=== PATIENT | female | born 1940 | race Caucasian/White ===

== ENCOUNTER → 2018-08-04 11:54 | Outpatient (CLI) | payer OTHER, SELFPAY ==
--- NOTE | 2018-08-04 | DI.RAD.S_ITS ---
PROCEDURE: XR LUMBAR SPINE 2-3V INDICATIONS: Lumbago with sciatica, unspecified side TECHNIQUE: 3 views of the lumbar spine were acquired. COMPARISON: [facility], [place], SPINE LUMB 2 OR 3VW, 11/27/2015, 14:35. [facility], [place], L-SPINE 2-3 VIEWS, 11/23/2012, 14:50. FINDINGS: Bones: No fracture or focal osseous destruction. Multilevel degenerative endplate sclerosis and spurring. Diffuse facet arthropathy. Severe levoscoliosis of the lower thoracic and upper lumbar spine as before. Severe diffuse narrowing of all of the visualized lumbar and thoracic disc spaces. Overall, no interval change. Soft tissues: Scattered vascular calcifications seen in the aorta. IMPRESSION: No interval change since 11/27/15 redemonstrating severe scoliosis and multilevel thoracic/lumbar spondylosis and facet arthropathy. Dictated by: Fahad Bello M.D. on 08/04/2018 at 13:18 Approved by: Fahad Bello M.D. on 08/04/2018 at 13:20
== END ==
PROVIDERS: PCP Internal Medicine; Visit Provider Internal Medicine
DX: M47.815 Spondylosis without myelopathy or radiculopathy, thoracolumbar region (principal); M54.40 Lumbago with sciatica, unspecified side; M41.85 Other forms of scoliosis, thoracolumbar region
CPT/HCPCS: 72100

== ENCOUNTER 2018-08-17 19:45 | Emergency (ER) | payer OTHER, SELFPAY ==
[2018-08-17 19:54] VITALS: BP 152/85; PULSE 71; RESP 14; TEMP 36.7; O2SAT 99
--- NOTE | 2018-08-17 22:16 | ED.SKABFB ---
HPI - Skin/Abscess/Foreign Bdy General Chief complaint: Skin/Abscess/Foreign Body Stated complaint: skin tear right arm, dog jumped on her arm Time Seen by Provider: 08/17/18 22:16 Source: patient Mode of arrival: ambulatory Limitations: no limitations History of Present Illness HPI narrative: The patient has a 2-year-old very active dog at home. The dog jumped on her, she has sustained a skin tear to the right forearm. She has rheumatoid arthritis, and associated thin skin. There is a skin tear, with roll back of the skin. She has no active bleeding. There is no motor sensory deficits the right arm. She has no numbness in the right arm. She thinks her tetanus is up-to-date. She is right-hand dominant. Related Data Home Medications Medication Instructions Recorded Confirmed felodipine 10 mg PO QDAY #0 08/03/09 folic acid 1 mg PO BID #0 08/03/09 ascorbic acid (vitamin C) 1,000 mg PO QDAY #0 03/12/16 calcium carbonate 2,000 mg PO QDAY #0 03/12/16 cholecalciferol (vitamin D3) 1 tab PO QDAY #0 03/12/16 [Vitamin D3] magnesium oxide 400 mg PO QDAY #0 03/12/16 omega 4-kie-kft-fish oil [Fish Oil] 1,000 mg PO QDAY #0 03/12/16 ibuprofen [Advil] 200 mg PO Q4HP PRN #0 09/17/16 prednisone 5 mg PO QDAY #0 09/17/16 tramadol 50 mg PO Q4HP PRN #0 09/17/16 donepezil 5 mg PO HS #0 01/09/17 ranitidine HCl 150 mg PO BID #0 01/09/17 Previous Rx's Medication Instructions Recorded [COMPOUND CREAM] #120 gm 05/04/16 sulfamethoxazole-trimethoprim 1 tab PO BID #20 tab 07/13/17 Allergies Allergy/AdvReac Type Severity Reaction Status Date / Time lisinopril [LISINOPRIL] AdvReac Unknown COUGH Verified 08/17/18 19:59 Review of Systems Review of Systems ROS Unobtainable: All systems reviewed & are unremarkable except as noted in HPI and below Constitutional Denies weakness Musculoskeletal Reports as per HPI and Denies numbness Comments: Skin tear right arm. Thin skin. Integumentary/Breasts Comments: Noted above Neurologic Denies numbness and Denies weakness PFSH Social History Smoking Status: Former smoker Social History Smoking Status: Former smoker Exam Initial Vital Signs Initial Vital Signs: Vital Signs Temperature 98.1 F 08/17/18 19:54 Pulse Rate 71 08/17/18 19:54 Respiratory Rate 14 08/17/18 19:54 Blood Pressure 152/85 H 08/17/18 19:54 Pulse Oximetry 99 08/17/18 19:54 Const General: cooperative, healthy appearing and comfortable Skin General: no rashes or lesions noted and No petechiae Other: Ashen colored skin, thin fragile skin. 4 x 7 cm skin tear to the right forearm. Part of the skin has totally avulsed. Neuro Motor: muscle tone normal throughout Sensory Exam: no sensory deficits noted Extrem General: full ROM and capillary refill normal Other: Noted above regarding right arm skin tear. Psych Appearance: well kempt Mental Status: mental status grossly normal Attitude: cooperative Thought Content: normal and suicidality Judgment: judgment good Course Course Narrative: The patient has a skin avulsion to the right forearm. The site was cleansed with Betadine and saline. The residual portion of skin still in place was gently moved back into appropriate anatomic place, Dermabond was applied. Antibiotic ointment was applied to the wound. A nonadhesive bandage was applied by the patient's nurse. The patient tolerated procedure well. Vital Signs - 8 hr 08/17/18 19:54 Temperature 98.1 F Pulse Rate 71 Respiratory Rate 14 Blood Pressure 152/85 H Pulse Oximetry 99 Discharge Plan Departure Patient Disposition: Home Clinical Impression: Skin tear of right upper extremity Instructions: DI for Avulsion Laceration (Not Requiring Sutures) Activity Restrictions/Additional Instructions: Keep the bandage on for 2 days. Afterwards, allow the wound to be exposed to air, but I would suggest rapid wound 1 out about. Follow-up with her doctor in 10 days if you have ongoing concerns about the wound. Return here if needed. Prescriptions: No Action felodipine 10 MG tablet extended release 24 hr 10 mg PO QDAY Qty: 0 RF: 0 folic acid 1 MG tablet 1 mg PO BID Qty: 0 RF: 0 calcium carbonate 500 MG tablet 2,000 mg PO QDAY Qty: 0 RF: 0 cholecalciferol (vitamin D3) [Vitamin D3] 2,000 UNIT tablet 1 tab PO QDAY Qty: 0 RF: 0 omega 4-tca-uay-fish oil [Fish Oil] 1,000 MG capsule 1,000 mg PO QDAY Qty: 0 RF: 0 ascorbic acid (vitamin C) 500 MG tablet 1,000 mg PO QDAY Qty: 0 RF: 0 magnesium oxide 400 MG capsule 400 mg PO QDAY Qty: 0 RF: 0 [COMPOUND CREAM] Qty: 120 RF: 0 ibuprofen [Advil] 200 MG tablet 200 mg PO Q4HP PRNQty: 0 RF: 0 prednisone 5 MG tablet 5 mg PO QDAY Qty: 0 RF: 0 tramadol 50 MG tablet 50 mg PO Q4HP PRNQty: 0 RF: 0 donepezil 5 MG tablet 5 mg PO HS Qty: 0 RF: 0 ranitidine HCl 150 MG tablet 150 mg PO BID Qty: 0 RF: 0 sulfamethoxazole-trimethoprim 800 MG/160 MG tablet 1 tab PO BID Qty: 20 RF: 0 Referrals: Aishwarya Richard MD [Primary Care Provider] -
--- NOTE | 2018-08-17 22:32 | PC.NURSE ---
PT states dog was playing skid across couch and landed on her arm causing skin tear to right forearm. L NO active bleeding with large skin flap present, Tdap up to date per patient. Wound cleaned with gauze and sterile water by Dr. Flowers and dermabond applied. Bacitracin applied dressed with telfa, and gauze roll.
[2018-08-17 22:39] VITALS: BP 155/72; PULSE 63; RESP 16; O2SAT 98
== END 2018-08-17 22:39 | disposition home or self-care (01) ==
PROVIDERS: Emergency Provider Emergency Medicine; PCP Internal Medicine
DX: S41.111A Laceration without foreign body of right upper arm, initial encounter (principal)
CPT/HCPCS: 99282

== ENCOUNTER 2018-08-21 07:48 | Emergency (ER) | payer OTHER, SELFPAY ==
[2018-08-21 07:52] VITALS: BP 114/56; PULSE 65; RESP 18; TEMP 36.5; O2SAT 96; BMI 17.9
--- NOTE | 2018-08-21 08:10 | PC.NURSE ---
pt reports her pet jumped on her 4 days ago, caused skin tear, evaluated by dr christianson.
--- NOTE | 2018-08-21 08:38 | ED_ITS ---
HPI - Skin/Abscess/Foreign Bdy General Chief complaint: Extremity Injury, Upper Stated complaint: Rt arm laceration,worsening pain Time Seen by Provider: 08/21/18 08:16 Source: patient Mode of arrival: ambulatory Limitations: no limitations History of Present Illness HPI narrative: Patient is a 78-year-old female who presents with right arm pain and redness. She was seen evaluated here 4 days ago after a skin tear. A dog jumped on her, there was no bite reported today. She denies fever or increased weakness. She does rheumatoid arthritis MD complaint: rash and laceration Tetanus up to date: yes Location: RUE Severity: moderate Related Data Home Medications Medication Instructions Recorded Confirmed felodipine 10 mg PO QDAY #0 08/03/09 folic acid 1 mg PO BID #0 08/03/09 ascorbic acid (vitamin C) 1,000 mg PO QDAY #0 03/12/16 calcium carbonate 2,000 mg PO QDAY #0 03/12/16 cholecalciferol (vitamin D3) 1 tab PO QDAY #0 03/12/16 [Vitamin D3] magnesium oxide 400 mg PO QDAY #0 03/12/16 omega 5-jeq-bka-fish oil [Fish Oil] 1,000 mg PO QDAY #0 03/12/16 ibuprofen [Advil] 200 mg PO Q4HP PRN #0 09/17/16 prednisone 5 mg PO QDAY #0 09/17/16 tramadol 50 mg PO Q4HP PRN #0 09/17/16 donepezil 5 mg PO HS #0 01/09/17 ranitidine HCl 150 mg PO BID #0 01/09/17 Previous Rx's Medication Instructions Recorded [COMPOUND CREAM] #120 gm 05/04/16 sulfamethoxazole-trimethoprim 1 tab PO BID #20 tab 07/13/17 cephalexin [Keflex] 500 mg PO TID #21 cap 08/21/18 Allergies Allergy/AdvReac Type Severity Reaction Status Date / Time lisinopril [LISINOPRIL] AdvReac Unknown COUGH Verified 08/21/18 08:03 Review of Systems Review of Systems ROS Unobtainable: All systems reviewed & are unremarkable except as noted in HPI and below Constitutional Denies chills, Denies fever(s), Denies lethargy and Denies weakness Eyes Denies change in vision, Denies eye discharge, Denies irritation and Denies loss of vision ENT Ears, Nose, Mouth, and Throat: Denies change in voice, Denies neck pain and Denies sore throat Cardiovascular Denies chest pain, Denies irregular heart rhythm, Denies lightheadedness, Denies palpitations, Denies dyspnea, Denies dyspnea on exertion and Denies orthopnea Respiratory Denies cough, Denies dyspnea, Denies dyspnea on exertion and Denies wheezing Gastrointestinal Gastrointestinal: Denies abdominal pain, Denies change in bowel habits, Denies diarrhea, Denies nausea and Denies vomiting Musculoskeletal Denies neck pain Integumentary/Breasts Reports as per HPI Neurologic Denies loss of vision and Denies weakness Endocrine Denies palpitations Allergic/Immunologic Denies wheezing [facility] Medical History Hypertension (Acute) Rheumatoid arthritis (Acute) Social History Smoking Status: Former smoker Social History Smoking Status: Former smoker Exam Initial Vital Signs Initial Vital Signs: Vital Signs Temperature 97.7 F 08/21/18 07:52 Pulse Rate 65 08/21/18 07:52 Respiratory Rate 18 08/21/18 07:52 Blood Pressure 114/56 L 08/21/18 07:52 Pulse Oximetry 96 08/21/18 07:52 GENERAL: Well-appearing, well-nourished and in no acute distress. CARDIOVASCULAR: peripheral pulses in tact, cap refill <2 sec RESPIRATORY: No respiratory distress, speaks in full sentences without difficulty EXTREMITIES: Normal range of motion, no clubbing or edema. Neurovascularly intact. Rheumatoid changes in hand NEUROLOGICAL: Cranial nerves II through XII grossly intact. Normal gait and speech. SKIN: Right arm posterior healing skin tear, good pink healing tissue. No drainage. Anterior of forearm that is about 15 cm of erythema it does not extend above the elbow there is no streaking. No abscess is Course Orders Ordered: Discontinued Medications Acetaminophen (Tylenol) 975 mg PO NOW ONE Stop: 08/21/18 08:46 Vital Signs - 8 hr 08/21/18 07:52 Temperature 97.7 F Pulse Rate 65 Respiratory Rate 18 Blood Pressure 114/56 L Pulse Oximetry 96 MDM - Skin/Abscess/Foreign Bdy MDM Narrative Medical decision making narrative: Patient is not appear septic or toxic. At this time think outpatient oral antibiotics if symptoms worsen or she becomes febrile then she may need blood work and an IV. at bedside I have discussed this with him as well as the patient. And given very strict warning signs and when to return. Discharge Plan Departure Patient Disposition: Home Clinical Impression: Cellulitis of arm, right Discharge Date/Time: 08/21/18 09:00 Interventions: ED Discharge Assessment Last Done: 08/21/18 09:00 Instructions: DI for Cellulitis -- Adult Activity Restrictions/Additional Instructions: *You have been diagnosed with cellulitis of right arm *What to do: Keep pink dressing on for the next 3-5 days, you may bathe with it. Wash with soap and water. *Continue to take medications as directed Keflex 500 mg 3 times a day for 7 days *Follow up with your primary care provider in 2-3 days *Return to ER if you should have redness extending beyond the elbow, fever, increased weakness or any new, worsening or concerning symptoms Prescriptions: New cephalexin [Keflex] 500 mg capsule 500 mg PO TID Qty: 21 RF: 0 No Action felodipine 10 MG tablet extended release 24 hr 10 mg PO QDAY Qty: 0 RF: 0 folic acid 1 MG tablet 1 mg PO BID Qty: 0 RF: 0 calcium carbonate 500 MG tablet 2,000 mg PO QDAY Qty: 0 RF: 0 cholecalciferol (vitamin D3) [Vitamin D3] 2,000 UNIT tablet 1 tab PO QDAY Qty: 0 RF: 0 omega 1-mgl-ark-fish oil [Fish Oil] 1,000 MG capsule 1,000 mg PO QDAY Qty: 0 RF: 0 ascorbic acid (vitamin C) 500 MG tablet 1,000 mg PO QDAY Qty: 0 RF: 0 magnesium oxide 400 MG capsule 400 mg PO QDAY Qty: 0 RF: 0 [COMPOUND CREAM] Qty: 120 RF: 0 ibuprofen [Advil] 200 MG tablet 200 mg PO Q4HP PRNQty: 0 RF: 0 prednisone 5 MG tablet 5 mg PO QDAY Qty: 0 RF: 0 tramadol 50 MG tablet 50 mg PO Q4HP PRNQty: 0 RF: 0 donepezil 5 MG tablet 5 mg PO HS Qty: 0 RF: 0 ranitidine HCl 150 MG tablet 150 mg PO BID Qty: 0 RF: 0 sulfamethoxazole-trimethoprim 800 MG/160 MG tablet 1 tab PO BID Qty: 20 RF: 0 Referrals: Aishwarya Richard MD [Primary Care Provider] -
--- NOTE | 2018-08-21 15:01 | PC.NURSE ---
rn dc pt, didnt see order
== END 2018-08-21 09:00 | disposition home or self-care (01) ==
PROVIDERS: Emergency Provider Emergency Medicine; PCP Internal Medicine
DX: L03.113 Cellulitis of right upper limb (principal)
CPT/HCPCS: 99282

== ENCOUNTER 2018-08-22 12:11 | Inpatient (IN) | payer OTHER, SELFPAY ==
[2018-08-22] VITALS (13 sets, daily range): BP systolic 94–136; BP diastolic 46–99; PULSE 53–149; RESP 14–25; TEMP 36.3–37.1; O2SAT 93–100; BMI 17.6
[2018-08-22 13:24] LABS: Hematocrit 37.4 % (36-46); Hemoglobin 12.5 g/dL (12.0-16.0); Mean Corpuscular HGB Conc 33.3 % (30-36); Mean Corpuscular Hemoglobin 29.8 PG (26-34); Mean Corpuscular Volume 89.4 fL (80-100); Platelet Count 318 X10^3/uL (150-400); Red Blood Cell Count 4.18 X10^6/uL (4.0-5.2); Red Cell Distribution Width 15.3 % (11.6-14.8); White Blood Cell Count 25.7 X10^3/uL (4.5-11.0)
[2018-08-22 13:25] LABS: Add Manual Diff / Slide Review YES
--- NOTE | 2018-08-22 13:30 | PC.NURSE ---
Pt scratched by dog 3 days ago, returned related to her redness is progressing up her arm, she complains of pain and it is inflammed and hot. Cms intact bilateral arms. Otherwise pt is nad. Reports she is comfortable how we have her in the gurney.
[2018-08-22 13:37] LABS: Lactate (Lactic Acid) 2.4 mmol/L (0.7-2.1)
[2018-08-22 13:39] LABS: Alanine Aminotransferase 25 IU/L (9-52); Albumin 4.1 g/dL (3.5-5.0); Albumin Globulin Ratio 1.3 (1.0-2.8); Alkaline Phosphatase 114 U/L (38-126); Aspartate Aminotransferase 31 IU/L (14-36); BUN Creatinine Ratio 38.3 (6-22); Bilirubin Total 1.1 mg/dL (0.2-1.3); Blood Urea Nitrogen 46 mg/dL (7-17); Calcium 9.4 mg/dL (8.4-10.2); Carbon Dioxide 30 mmol/L (22-32); Chloride 86 mmol/L (98-107); Estimated Glomerular Filt Rate 43.6 mL/min (>60); Globulin 3.1 g/dL (1.7-4.1); Glucose 117 mg/dL (80-110); HEMOLYSIS < 15 (0-50); Potassium 3.5 mmol/L (3.4-5.1); Sodium 129 mmol/L (137-145); Total Protein 7.2 g/dL (6.3-8.2)
[2018-08-22 13:58] LABS: Neutrophils Absolute Manual 24158 /uL (3000-5900); Rouleaux 1+; Total Cells Counted 100
[2018-08-22 14:14] LABS: Procalcitonin 3.35 ng/mL (<0.5)
[2018-08-22] MEDS: SODIUM CHLORIDE 0.9% 1,000 ML 1000 ML IV ×2 (15:17→17:26)
[2018-08-22 15:19] LABS: Reflexed Lactate in 2 Hours Y
--- NOTE | 2018-08-22 15:28 | ED_ITS ---
HPI - Skin/Abscess/Foreign Bdy General Chief complaint: Skin/Abscess/Foreign Body Stated complaint: seen er 08/21/redness to arm increased Time Seen by Provider: 08/22/18 14:03 Source: patient Mode of arrival: ambulatory Limitations: no limitations History of Present Illness HPI narrative: 78-year-old female comes to the emergency department with complaint of redness and infection in her right arm. Patient states that about 4 days ago her dog sort of slid across her arms she got a small abrasion. She was seen yesterday there was some increasing redness and started on antibiotics at that time. Patient states that it has gotten worse overnight. She denies any fevers. She states not particularly painful but is a little uncomfortable. She states the redness has extended further upper arm overnight. She has had 2 she states maybe 3 doses of her oral antibiotic. Patient does have rheumatoid arthritis, she is unsure but believes she may take prednisone daily. She states her is going home to get the medication list. Patient has not had any chest pain, no shortness of breath. No nausea or vomiting. No new GI or urinary symptoms. She does not get any immune suppressant injections for her rheumatoid. She is unsure if her tetanus is up-to-date. She states there has been very mild drainage. She has not had issues with skin infections in the past. Related Data Home Medications Medication Instructions Recorded Confirmed folic acid 1 mg PO BID #0 08/03/09 08/22/18 prednisone 5 mg PO DAILY #0 09/17/16 08/22/18 tramadol 50 mg PO Q4HP PRN #0 09/17/16 08/22/18 ranitidine HCl 150 mg PO BEDTIME #0 01/09/17 08/22/18 CoQ-10 400 mg PO DAILY 08/22/18 08/22/18 celecoxib 100 mg PO DAILY 08/22/18 08/22/18 cephalexin [Keflex] 500 mg PO TIDX7 08/22/18 08/22/18 cholecalciferol (vitamin D3) 1,000 unit PO DAILY 08/22/18 08/22/18 [Vitamin D3] citalopram 20 mg PO DAILY 08/22/18 08/22/18 clobetasol 1 applic TOPICAL DIRECTED 08/22/18 08/22/18 cyanocobalamin (vitamin B-12) 1,000 mcg PO DAILY 08/22/18 08/22/18 [Vitamin B-12] donepezil 10 mg PO BEDTIME 08/22/18 08/22/18 felodipine 10 mg PO DAILY 08/22/18 08/22/18 ferrous sulfate 325 mg PO DAILY 08/22/18 08/22/18 hydroxychloroquine 200 mg PO DAILY 08/22/18 08/22/18 losartan 100 mg PO DAILY 08/22/18 08/22/18 methotrexate sodium 15 mg PO TH 08/22/18 08/22/18 multivit, Ca, min-FA-soy isofl 1 tab PO DAILY 08/22/18 08/22/18 [One-A-Day Menopause Formula] omeprazole 20 mg PO DAILY 08/22/18 08/22/18 Allergies Allergy/AdvReac Type Severity Reaction Status Date / Time lisinopril [LISINOPRIL] AdvReac Unknown COUGH Verified 08/21/18 08:03 Review of Systems Review of Systems ROS Unobtainable: All systems reviewed & are unremarkable except as noted in HPI and below Constitutional Denies chills, Denies fever(s), Denies lethargy and Denies weakness Cardiovascular Denies chest pain, Denies diaphoresis, Denies syncope, Denies rapid heart rate, Reports edema (Right arm), Denies irregular heart rhythm, Denies lightheadedness, Denies palpitations, Denies dyspnea, Denies dyspnea on exertion and Denies orthopnea Respiratory Denies change in phlegm color, Denies chest congestion, Denies cough, Denies dyspnea and Denies dyspnea on exertion Gastrointestinal Gastrointestinal: Denies abdominal pain, Denies change in bowel habits, Denies diarrhea, Denies nausea and Denies vomiting Genitourinary Denies hematuria, Denies dysuria, Denies flank pain and Denies urinary urgency Musculoskeletal Reports as per HPI, Reports deformity (Chronic from rheumatoid arthritis), Denies numbness, Denies tingling and Reports other (Redness, abrasion an infection in the right upper extremity.) Integumentary/Breasts Reports as per HPI, Reports non-healing lesions, Reports erythema and Reports wounds Neurologic Denies syncope, Denies numbness, Denies tingling and Denies weakness Endocrine Denies palpitations [facility] Medical History Hypertension (Acute) Rheumatoid arthritis (Acute) Social History Smoking Status: Former smoker Social History household members: spouse Smoking Status: Former smoker alcohol intake: current Exam Narrative Exam Narrative: GENERAL: Alert and oriented x three, thin, elderly female in no acute distress. HEENT: Head normocephalic, atraumatic, EOMI, pupils reactive, face symmetric, moist mucous membranes NECK: Supple, full range of motion CARDIOVASCULAR: Regular rate and rhythm without murmurs, rubs or gallops. RESPIRATORY: Breath sounds equal bilaterally, no wheezes rales or rhonchi. ABDOMEN: Soft, nontender. Normoactive bowel sounds all 4 quadrants. No guarding or rebound, rigidity, no mass EXTREMITIES: Normal range of motion, no clubbing, patient has ulnar deviation and deformity consistent with rheumatoid arthritis. Patient has open wound that is 4 x 5 cm in size that is superficial but throughout the initial layers of skin, there is mostly good pink granulation tissue but there is some whitish discoloration and scant purulent discharge. Patient has erythema extending from the site on her forearm midway up her arm. There is markings that show that it had stopped close to the flexure of the elbow yesterday. Patient has mild tenderness to touch, 2+ radial pulses bilaterally. Normal sensation throughout. Neurovascularly intact. NEUROLOGICAL: Cranial nerves II through XII grossly intact. Moving all extremities SKIN: Warm, dry, no petechiae, no rashes or lesions. Initial Vital Signs Initial Vital Signs: Vital Signs Temperature 97.5 F L 08/22/18 12:14 Pulse Rate 82 08/22/18 12:14 Respiratory Rate 14 08/22/18 12:14 Blood Pressure 96/52 L 08/22/18 12:14 Pulse Oximetry 100 08/22/18 12:14 Course Orders Ordered: ED Orders 08/22/18 13:00 Complete Blood Count AUTO DIFF Stat Comprehensive Metabolic Panel Stat Lactate (Lactic Acid) Stat Procalcitonin Stat 08/22/18 13:40 Blood Culture Stat 08/22/18 15:27 EKG-12 Lead Stat 08/22/18 15:40 Troponin & CK Cardiac Panel Stat 08/22/18 15:41 XR chest 1V Stat 08/22/18 18:02 Consult to Dietitian, Adult Routine Clindamycin Phosphate (Cleocin) 600 mg in 50 mls @ 50 mls/hr IV Q6H CARLITA Sodium Chloride (Normal Saline 0.9%) 1,000 mls @ 100 mls/hr IV CONT CARLITA Last Admin: 08/22/18 18:03 Dose: 100 mls/hr Discontinued Medications Al Hydrox/Mg Hydrox/Simethicone 20 ml/ Lidocaine HCl 15 ml 0 ml PO NOW ONE Stop: 08/22/18 15:42 Last Admin: 08/22/18 15:50 Dose: 30 ml Diltiazem HCl (Cardizem) 10 mg IV NOW ONE Stop: 08/22/18 15:41 Last Admin: 08/22/18 15:54 Dose: 10 mg Sodium Chloride (Normal Saline 0.9%) 1,000 mls @ 1,000 mls/hr IV BOLUS ONE Stop: 08/22/18 15:54 Last Infusion: 08/22/18 17:19 Dose: 0 mls/hr Admin: 08/22/18 15:17 Dose: 1,000 mls/hr Clindamycin Phosphate (Cleocin) 900 mg in 50 mls @ 50 mls/hr IV NOW ONE Stop: 08/22/18 17:10 Last Infusion: 08/22/18 18:03 Dose: 50 mls/hr Admin: 08/22/18 16:16 Dose: 50 mls/hr Sodium Chloride (Normal Saline 0.9%) 1,000 mls @ 1,000 mls/hr IV BOLUS ONE Stop: 08/22/18 18:00 Last Infusion: 08/22/18 18:09 Dose: 1,000 mls/hr Admin: 08/22/18 17:26 Dose: 1,000 mls/hr Vital Signs - 8 hr 08/22/18 12:14 08/22/18 14:00 08/22/18 15:00 Temperature 97.5 F L Pulse Rate 82 53 L Respiratory Rate 14 18 17 Blood Pressure 96/52 L Blood Pressure [Left Arm] 105/59 L 123/56 L Pulse Oximetry 100 97 08/22/18 15:30 08/22/18 15:54 08/22/18 16:00 Temperature Pulse Rate 129 H 149 H 110 H Respiratory Rate 21 22 Blood Pressure 106/99 H Blood Pressure [Left Arm] 106/66 102/49 L Pulse Oximetry 97 94 08/22/18 16:15 08/22/18 16:30 08/22/18 17:00 Temperature Pulse Rate 112 H 114 H 123 H Respiratory Rate 21 22 24 Blood Pressure Blood Pressure [Left Arm] 100/56 L 100/56 L 94/66 Pulse Oximetry 93 94 96 08/22/18 17:45 08/22/18 17:50 Temperature 98.8 F 97.8 F Pulse Rate 82 82 Respiratory Rate 21 20 Blood Pressure 103/54 L 98/58 L Blood Pressure [Left Arm] Pulse Oximetry 95 97 MDM - Skin/Abscess/Foreign Bdy Lab Data Attestation: I reviewed the patient's lab results. Result diagrams: 08/22/18 13:00 08/22/18 13:00 Lab Results 08/22/18 08/22/18 08/22/18 Range/Units 13:00 13:00 13:00 WBC 25.7 H (4.5-11.0) X10^3/uL RBC 4.18 (4.0-5.2) X10^6/uL Hgb 12.5 (12.0-16.0) g/dL Hct 37.4 (36-46) % MCV 89.4 (80-100) fL MCH 29.8 (26-34) PG MCHC 33.3 (30-36) % RDW 15.3 H (11.6-14.8) % Plt Count 318 (150-400) X10^3/uL Neut % (Auto) Not Reportable Lymph % (Auto) Not Reportable Montgomery % (Auto) Not Reportable Eos % (Auto) Not Reportable Baso % (Auto) Not Reportable Lymph # (Auto) Not Reportable Montgomery # (Auto) Not Reportable Baso # (Auto) Not Reportable Total Counted 100 Seg Neutrophils % 79.0 H (38-70) % Band Neutrophils % 15.0 H (3-7) % Lymphocytes % (Manual) 2.0 L (25-45) % Atypical Lymphs % 1.0 H ( - 0) % Monocytes % (Manual) 3.0 (2-11) % Neutrophils # (Manual) 46924 H (2308-4342) /uL RBC Morphology See below Rouleaux 1+ H Sodium 129 L (137-145) mmol/L Potassium 3.5 (3.4-5.1) mmol/L Chloride 86 L (98-107) mmol/L Carbon Dioxide 30 (22-32) mmol/L BUN 46 H (7-17) mg/dL Creatinine 1.20 H (0.52-1.04) mg/dL Estimated GFR 43.6 L (>60) mL/min BUN/Creatinine Ratio 38.3 H (6-22) Glucose 117 H (80-110) mg/dL Lactate (0.7-2.1) mmol/L Calcium 9.4 (8.4-10.2) mg/dL Total Bilirubin 1.1 (0.2-1.3) mg/dL AST 31 (14-36) IU/L ALT 25 (9-52) IU/L Alkaline Phosphatase 114 (38-126) U/L Total Creatine Kinase (30-135) U/L CK-MB (CK-2) CK-MB (CK-2) Rel Index Troponin I (0.01-0.034) ng/mL Total Protein 7.2 (6.3-8.2) g/dL Albumin 4.1 (3.5-5.0) g/dL Globulin 3.1 (1.7-4.1) g/dL Albumin/Globulin Ratio 1.3 (1.0-2.8) Procalcitonin 3.35 H (<0.5) ng/mL 08/22/18 08/22/18 08/22/18 Range/Units 13:00 15:40 15:40 WBC (4.5-11.0) X10^3/uL RBC (4.0-5.2) X10^6/uL Hgb (12.0-16.0) g/dL Hct (36-46) % MCV (80-100) fL MCH (26-34) PG MCHC (30-36) % RDW (11.6-14.8) % Plt Count (150-400) X10^3/uL Neut % (Auto) Lymph % (Auto) Montgomery % (Auto) Eos % (Auto) Baso % (Auto) Lymph # (Auto) Montgomery # (Auto) Baso # (Auto) Total Counted Seg Neutrophils % (38-70) % Band Neutrophils % (3-7) % Lymphocytes % (Manual) (25-45) % Atypical Lymphs % ( - 0) % Monocytes % (Manual) (2-11) % Neutrophils # (Manual) (1616-2959) /uL RBC Morphology Rouleaux Sodium (137-145) mmol/L Potassium (3.4-5.1) mmol/L Chloride (98-107) mmol/L Carbon Dioxide (22-32) mmol/L BUN (7-17) mg/dL Creatinine (0.52-1.04) mg/dL Estimated GFR (>60) mL/min BUN/Creatinine Ratio (6-22) Glucose (80-110) mg/dL Lactate 2.4 H 1.6 (0.7-2.1) mmol/L Calcium (8.4-10.2) mg/dL Total Bilirubin (0.2-1.3) mg/dL AST (14-36) IU/L ALT (9-52) IU/L Alkaline Phosphatase (38-126) U/L Total Creatine Kinase 22 L (30-135) U/L CK-MB (CK-2) TNP CK-MB (CK-2) Rel Index TNP Troponin I 0.025 (0.01-0.034) ng/mL Total Protein (6.3-8.2) g/dL Albumin (3.5-5.0) g/dL Globulin (1.7-4.1) g/dL Albumin/Globulin Ratio (1.0-2.8) Procalcitonin (<0.5) ng/mL Imaging Data Chest x-ray: Radiologist's impression: [address] [address] XRay Report Signed Patient: Griselda Helton [facility]#: [id number] : 2Acct:[id number] Age/Sex: 78 / FDate of Service: 08/22/18 Loc: ED Accession Number: [id number] Procedure: XR chest 1V Ordering Provider: Salma Vick D.O. PROCEDURE: XR CHEST 1V INDICATIONS: atrial fibrillation TECHNIQUE: One view of the chest was acquired. COMPARISON: [facility], , CHEST 2 VIEW, 10/15/2016, 13:52. FINDINGS: Surgical changes and devices: None. Lungs and pleura: Increased pulmonary vascularity is present. Mediastinum: Mediastinal contours appear normal. Heart size is mildly prominent. Bones and chest wall: No suspicious bony lesions. Overlying soft tissues appear unremarkable. IMPRESSION: Increased vascularity suggestive of edema. Dictated by: Marian Kwan M.D. on 08/22/2018 at 16:40 Approved by: Marian Kwan M.D. on 08/22/2018 at 16:41 ECG Data Attestation: I personally reviewed and interpreted this ECG as follows: Prior ECG tracings: not available for review Interpretation: AFib with rapid ventricular response rate of 133 QRS of 136 and QTC of 414. Patient has right bundle branch block. MDM Narrative Medical decision making narrative: Patient has a white count of 25 with lactate that is slightly elevated and a procalcitonin that is 3, patient's infection appears to be spreading upper arm after 2 doses of oral antibiotics. Patient is likely immune suppressed from chronic steroid use. Heart rates in the 90s she occasionally pops up a little bit higher. She appears to have a lot of PVCs vs arrhythmia on telemetry and EKG was ordered. Patient appears to be failing outpatient treatment. Would recommend inpatient she meets SIRS criteria for sepsis. Patient was not started at 30 cc/kilos bolus 2nd concern for age and fluid overload. Patient then developed a atrial fibrillation. Patient is not aware of any history. Heart rate is 133, her heart rate ranges from 130 to 90s. troponin is negative. She was given some Cardizem, which did drop her pressure. She continues to range from the 90 to 115 range. Patient when asked directly does not have any awareness of any atrial fibrillation or cardiac arrhythmias. She has been asymptomatic throughout her stay. Spoke with Dr. Bazan who accepts for inpatient. She asked that we give some additional fluid initially patient was not started on a 30 cc/kilos bolus secondary to concerns for fluid overload. She has been tolerating fluids appropriately with the 1st L. Discharge Plan Departure Patient Disposition: Admitted As Inpatient Clinical Impression: Cellulitis of arm, right, Sepsis, Atrial fibrillation with RVR Discharge Date/Time: 08/22/18 17:47 Interventions: ED Discharge Assessment Last Done: 08/22/18 17:45 Admit Date/Time: 08/22/18 17:02 Admit Provider: Kelsy Bazan
--- NOTE | 2018-08-22 15:41 | DI.RAD.S_ITS ---
PROCEDURE: XR CHEST 1V INDICATIONS: atrial fibrillation TECHNIQUE: One view of the chest was acquired. COMPARISON: [facility], , CHEST 2 VIEW, 10/15/2016, 13:52. FINDINGS: Surgical changes and devices: None. Lungs and pleura: Increased pulmonary vascularity is present. Mediastinum: Mediastinal contours appear normal. Heart size is mildly prominent. Bones and chest wall: No suspicious bony lesions. Overlying soft tissues appear unremarkable. IMPRESSION: Increased vascularity suggestive of edema. Dictated by: Marian Kwan M.D. on 08/22/2018 at 16:40 Approved by: Marian Kwan M.D. on 08/22/2018 at 16:41
[2018-08-22] MEDS: MAG HYDROX/ALUMINUM/SIMETH SUS 20 ML, LIDOCAINE VISCOUS 2% 15 ML PO (15:50)
[2018-08-22] MEDS: dilTIAZem 5 MG/ML SDV 10 MG IV (15:54)
[2018-08-22 16:08] LABS: Creatine Kinase 22 U/L (30-135)
[2018-08-22 16:09] LABS: Lactate 2HR (Lactic Acid Rflx) 1.6 mmol/L (0.7-2.1)
[2018-08-22] MEDS: CLINDAMYCIN 900 MG/50 ML PIGGYBACK 50 MG IV (16:16)
[2018-08-22 16:19] LABS: Troponin I 0.025 ng/mL (0.01-0.034)
--- NOTE | 2018-08-22 17:27 | PC.NURSE ---
1715 made first call in attempts to give report, talked to Rhona and she said she'd relay the message to Shaheed, accepting RN.
[2018-08-22] MEDS: SODIUM CHLORIDE 0.9% 1,000 ML 100 ML IV (18:03)
[2018-08-22 20:47] LABS: Magnesium 2.5 mg/dL (1.6-2.3)
[2018-08-22] MEDS: FOLIC ACID 1 MG TABLET PO (21:15)
[2018-08-22] MEDS: CLINDAMYCIN 600 MG/50 ML PIGGYBACK 50 MG IV (21:15)
[2018-08-22] MEDS: DONEPEZIL 5 MG TABLET 10 MG PO (21:16)
--- NOTE | 2018-08-22 21:36 | PM.HP.1 ---
History of Present Illness Date Patient Seen: 08/22/18 Time Patient Seen: 19:38 Chief complaint: seen er 08/21/redness to arm increased Narrative: Griselda Helton is a 78-year-old female patient with a history that is significant for rheumatoid arthritis on immunosuppressive therapy, hypertension, atrial fibrillation, gastroesophageal reflux and levoscoliosis of the thoracic lumbar spine who presents to the ER today for worsening redness and infection in the right arm. The patient was evaluated in the emergency department yesterday following her dog scraping or arm 4 days previously and developing cellulitis. The patient was discharged to home on Bactrim. Over night the patient reports worsening redness and swelling however denies significant pain. The patient is currently on immunosuppressive therapy with prednisone, methotrexate and hydro chloroquine for her rheumatoid arthritis. She denies any systemic symptoms of fevers or chills headaches or dizziness, chest pain or palpitations though she does have atrial fibrillation. She denies shortness of breath but does endorse an occasional cough but no wheezing. She denies abdominal pain and has no nausea vomiting but describes having a poor appetite. She denies history of diarrhea or constipation though she did have a loose stool earlier today. She has osteoarthritis and rheumatoid arthritis with some significant hand deformities. On arrival in the ER the patient is found to be afebrile a temperature 97.5?, heart rate of 82, pressure of 96/52 with respirations of 14 100% on room air. During the stay the patient developed atrial fibrillation with rapid ventricular rate at 140 for which he received Cardizem 10 mg with reduction in heart rate to 100 and blood pressure remaining approximately 100. On laboratory analysis patient has a white count of 25.7 with a normal H&H and platelets. She has an elevated procalcitonin of 3.35. The patient has received fluid bolus and started on clindamycin. She is admitted for cellulitis failing outpatient treatment. Patient History Medical History (Updated 08/23/18 @ 05:10 by KIRK Herrera) Atrial fibrillation (Acute) Gastroesophageal reflux (Acute) Osteoarthritis (Acute) Scoliosis (Acute) Hypertension (Acute) Rheumatoid arthritis (Acute) Surgical History (Updated 08/23/18 @ 05:11 by KIRK Herrera) History of spinal surgery (Acute) Social History household members: spouse Smoking Status: Former smoker alcohol intake: current Family & Social History Social History: household members spouse Prior Living Arrangements House Safety & Behavioral: Feels Safe in Current Yes Environment Been Physically Hurt or No Threatened By a Person Suicidal Ideation Description None Suicide Plan Description No Plan Tobacco & Substance use: Smoking Status Former smoker alcohol intake current alcohol intake frequency a few times a month Substance Use Type does not use Comment: The patient currently lives in a single family home with her to whom she has been for 50 years. The patient reports father at age 55 from heart disease and was overweight, her mother at 85 of old age. She has had 1 brother and 1 sister both who are of unknown causes. She has had 2 boys 1 of whom in a motor vehicle accident the other is in good health. Smoking: The patient endorses a 30 year history of smoking 2 packs per day. She quit 30 years ago. Alcohol: Patient reports 1 glass of wine per week with dinner. Substance use: Patient denies recreation pharmaceuticals, herbal or cannabis products. Advanced directives: In direct conversation with the patient she states her wishes to be DO NOT RESUSCITATE. She designates her Irvin to be her surrogate decision maker. Meds Home Medications Medication Instructions Recorded Confirmed Type folic acid 1 mg PO BID #0 08/03/09 08/22/18 History prednisone 5 mg PO DAILY #0 09/17/16 08/22/18 History tramadol 50 mg PO Q4HP PRN #0 09/17/16 08/22/18 History ranitidine HCl 150 mg PO BEDTIME #0 01/09/17 08/22/18 History CoQ-10 400 mg PO DAILY 08/22/18 08/22/18 History celecoxib 100 mg PO DAILY 08/22/18 08/22/18 History cephalexin [Keflex] 500 mg PO [id number] 08/22/18 08/22/18 History cholecalciferol (vitamin D3) 1,000 unit PO DAILY 08/22/18 08/22/18 History [Vitamin D3] citalopram 20 mg PO DAILY 08/22/18 08/22/18 History clobetasol 1 applic TOPICAL DIRECTED 08/22/18 08/22/18 History cyanocobalamin (vitamin B-12) 1,000 mcg PO DAILY 08/22/18 08/22/18 History [Vitamin B-12] donepezil 10 mg PO BEDTIME 08/22/18 08/22/18 History felodipine 10 mg PO DAILY 08/22/18 08/22/18 History ferrous sulfate 325 mg PO DAILY 08/22/18 08/22/18 History hydroxychloroquine 200 mg PO DAILY 08/22/18 08/22/18 History losartan 100 mg PO DAILY 08/22/18 08/22/18 History methotrexate sodium 15 mg PO TH 08/22/18 08/22/18 History multivit, Ca, min-FA-soy isofl 1 tab PO DAILY 08/22/18 08/22/18 History [One-A-Day Menopause Formula] omeprazole 20 mg PO DAILY 08/22/18 08/22/18 History Allergies Allergy/AdvReac Type Severity Reaction Status Date / Time lisinopril [LISINOPRIL] AdvReac Unknown COUGH Verified 08/21/18 08:03 Review of Systems Review of Systems All systems reviewed & are unremarkable except as noted in HPI and below Exam Vital Signs (past 8 hours): - 08/22/18 14:00 08/22/18 15:00 08/22/18 15:30 Temperature Pulse Rate 53 L 129 H Respiratory Rate 18 17 21 Blood Pressure Blood Pressure [Left Arm] 105/59 L 123/56 L 106/66 Pulse Oximetry 97 97 08/22/18 15:54 08/22/18 16:00 08/22/18 16:15 Temperature Pulse Rate 149 H 110 H 112 H Respiratory Rate 22 21 Blood Pressure 106/99 H Blood Pressure [Left Arm] 102/49 L 100/56 L Pulse Oximetry 94 93 08/22/18 16:30 08/22/18 17:00 08/22/18 17:45 Temperature 98.8 F Pulse Rate 114 H 123 H 82 Respiratory Rate 22 24 21 Blood Pressure 103/54 L Blood Pressure [Left Arm] 100/56 L 94/66 Pulse Oximetry 94 96 95 08/22/18 17:50 Temperature 97.8 F Pulse Rate 82 Respiratory Rate 20 Blood Pressure 98/58 L Blood Pressure [Left Arm] Pulse Oximetry 97 Oxygen Delivery Method Room Air Oxygen Flow Rate 0 Narrative Exam Narrative: GENERAL APPEARANCE: well developed, underweight with BMI of 17.6, afebrile and in no acute distress. HEAD: Normocephalic, atraumatic, no scalp lesions. EYES: pupils equal, round, reactive to light and accommodation, sclera non-icteric, extraocular movement intact without nystagmus. EARS: normal external structures, no ear pain NOSE: sinuses non tender to percussion, no rhinorrhea. ORAL CAVITY: mucosa moist without lesions or exudate, palate normal, tongue in midline. THROAT: normal, no erythema, no exudate, pharynx normal, uvula midline. NECK/THYROID: neck supple, no jugular venous distention, no carotid bruit, no thyromegaly, trachea midline. LYMPH NODES: no cervical or supraclavicular lymphadenopathy. SKIN: warm and dry, bandaged wound right forearm, redness swelling and warmth to medial distal 3rd of upper arm. HEART: Irregularly irregular rhythm, S1-S2 without murmur, no rubs or gallops, brisk capillary refill, no pedal edema. LUNGS: clear to auscultation bilaterally, no coarseness crackles or wheezing, no cough present. CHEST: Symmetrical movement, supraclavicular retractions on deep inspiration, no accessory muscle use, no pain to AP and lateral compression. ABDOMEN: Soft, flat, no epigastric or abdominal tenderness on palpation, no guarding or peritoneal signs, no organomegaly, no flank or suprapubic tenderness, active bowel tones. BACK: nontender to palpation EXTREMITIES: moves all extremities, redness warmth and swelling right arm to distal 1/3 of upper arm, strength is 5/5 and symmetrical, distal CMS intact NEUROLOGIC: AAO x4, mild memory impairment, cranial nerves II-XII grossly intact , motor strength normal upper and lower extremities, sensory exam intact to light touch, hearing grossly normal to speech. PSYCH: alert, cognitive function intact, good eye contact, stable mood with congruent affect Objective Labs Result Diagrams: 08/22/18 13:00 08/22/18 13:00 Labs: Laboratory Results - last 24 hr 08/22/18 08/22/18 08/22/18 13:00 13:00 13:00 WBC 25.7 H RBC 4.18 Hgb 12.5 Hct 37.4 MCV 89.4 MCH 29.8 MCHC 33.3 RDW 15.3 H Plt Count 318 Neut % (Auto) Not Reportable Lymph % (Auto) Not Reportable [place] % (Auto) Not Reportable Eos % (Auto) Not Reportable Baso % (Auto) Not Reportable Lymph # (Auto) Not Reportable [place] # (Auto) Not Reportable Baso # (Auto) Not Reportable Total Counted 100 Seg Neutrophils % 79.0 H Band Neutrophils % 15.0 H Lymphocytes % (Manual) 2.0 L Atypical Lymphs % 1.0 H Monocytes % (Manual) 3.0 Neutrophils # (Manual) 48935 H RBC Morphology See below Rouleaux 1+ H Sodium 129 L Potassium 3.5 Chloride 86 L Carbon Dioxide 30 BUN 46 H Creatinine 1.20 H Estimated GFR 43.6 L BUN/Creatinine Ratio 38.3 H Glucose 117 H Lactate Calcium 9.4 Magnesium Total Bilirubin 1.1 AST 31 ALT 25 Alkaline Phosphatase 114 Total Creatine Kinase CK-MB (CK-2) CK-MB (CK-2) Rel Index Troponin I Total Protein 7.2 Albumin 4.1 Globulin 3.1 Albumin/Globulin Ratio 1.3 Procalcitonin 3.35 H 08/22/18 08/22/18 08/22/18 13:00 13:00 15:40 WBC RBC Hgb Hct MCV MCH MCHC RDW Plt Count Neut % (Auto) Lymph % (Auto) [place] % (Auto) Eos % (Auto) Baso % (Auto) Lymph # (Auto) [place] # (Auto) Baso # (Auto) Total Counted Seg Neutrophils % Band Neutrophils % Lymphocytes % (Manual) Atypical Lymphs % Monocytes % (Manual) Neutrophils # (Manual) RBC Morphology Rouleaux Sodium Potassium Chloride Carbon Dioxide BUN Creatinine Estimated GFR BUN/Creatinine Ratio Glucose Lactate 2.4 H 1.6 Calcium Magnesium 2.5 H Total Bilirubin AST ALT Alkaline Phosphatase Total Creatine Kinase CK-MB (CK-2) CK-MB (CK-2) Rel Index Troponin I Total Protein Albumin Globulin Albumin/Globulin Ratio Procalcitonin 08/22/18 15:40 WBC RBC Hgb Hct MCV MCH MCHC RDW Plt Count Neut % (Auto) Lymph % (Auto) [place] % (Auto) Eos % (Auto) Baso % (Auto) Lymph # (Auto) [place] # (Auto) Baso # (Auto) Total Counted Seg Neutrophils % Band Neutrophils % Lymphocytes % (Manual) Atypical Lymphs % Monocytes % (Manual) Neutrophils # (Manual) RBC Morphology Rouleaux Sodium Potassium Chloride Carbon Dioxide BUN Creatinine Estimated GFR BUN/Creatinine Ratio Glucose Lactate Calcium Magnesium Total Bilirubin AST ALT Alkaline Phosphatase Total Creatine Kinase 22 L CK-MB (CK-2) TNP CK-MB (CK-2) Rel Index TNP Troponin I 0.025 Total Protein Albumin Globulin Albumin/Globulin Ratio Procalcitonin Assessment & Plan Assessment & Plan narrative: The patient is admitted to the hospital with sepsis, cellulitis right arm failing outpatient treatment and atrial fibrillation with RVR. 1. Sepsis -patient with positive infection markers including lactate 2.4, procalcitonin of 3.35, leukocytosis at 25.7 and creatinine of 1.2. -patient fluid resuscitated with 2 L of normal saline with modest improvement in blood pressure. -repeat lactic acid following fluid bolus is down to 1.6. -source of infection is cellulitis right arm, blood cultures are drawn. -will continue to monitor blood pressure. 2. Acute Cellulitis right arm, present on admission -patient sustained soft tissue injury to the right arm 4 days ago. Was seen in the ER day previously and started on oral antibiotics and discharged home. -patient with progressive symptoms on home antibiotics, redness now extending to above the elbow which patient describes as new. -positive infected markers as noted above. -clindamycin 600 mg every 6 hours. -will monitor CBC and procalcitonin 3. Paroxysmal Atrial fibrillation, active -patient with history of atrial fibrillation developed atrial fibrillation with RVR in the emergency department with heart rate in 140s. -patient treated with 10 mg of diltiazem IV with reduction of heart heart rate to 100. -patient remains irregularly irregular on exam with atrial fibrillation on monitor at time of exam at controlled rate, no chest pain or shortness of breath -continue floated pain 10 mg p.o. daily -will add aspirin 325 mg daily 4. Chronic Hypertension, active -patient is hypotensive with pressure in the 90s upon arrival with minimal improvement after fluid bolusing. -will hold losartan until blood pressure improves. 5. Rheumatoid arthritis, active -rheumatoid arthritis bilateral hands with resulting joint deformities -patient has been on hydro chloroquine and methotrexate which are held. -will continue Celebrex and tramadol. The patient is admitted to the hospital related to the severity progression of her symptoms failing outpatient treatment and potential risk for complications. She is admitted as inpatient with expected length of stay greater than 2 midnights. Quality VTE Deep Vein Thrombosis/Pulmonary Embolism Present on Admission: No
[2018-08-23] VITALS (7 sets, daily range): BP systolic 117–140; BP diastolic 57–85; PULSE 84–99; RESP 16–21; TEMP 36.2–37.2; O2SAT 93–100; BMI 17.5
--- NOTE | 2018-08-23 03:13 | PC.NURSE ---
Addendum entered and electronically signed by Bala Moseley R.N. 08/23/18 07:25: Patient had 2 IV sites, Left AC, Left Wrist. Lft wrist was leaking, lft AC was kinked. New IV site started at 0550 On Left upper arm. Pt tolerated well. Original Note: Addendum entered and electronically signed by Bala Moseley R.N. 08/23/18 04:39: Tele: Sinus w/ BBB and PAC's. Original Note: Pt is calm, co-opertive. Pt's vital signs are stable, lung sounds clear bilaterally, denies pain. Pt is on Tele: Sinus Rhythm w/ PAC's.
[2018-08-23] MEDS: CLINDAMYCIN 600 MG/50 ML PIGGYBACK 50 MG IV ×4 (03:56→21:42)
[2018-08-23] MEDS: SODIUM CHLORIDE 0.9% 1,000 ML 100 ML IV ×2 (03:57→20:18)
[2018-08-23] MEDS: PANTOPRAZOLE 20 MG TABLET PO (06:09)
[2018-08-23 06:21] LABS: Add Manual Diff / Slide Review NO; Basophils Absolute Auto 0 /uL (0-100); Basophils Percent Auto 0.1 % (0-2); Eosinophils Absolute Auto 100 /uL (0-450); Eosinophils Percent Auto 0.7 % (2-4); Hematocrit 32.7 % (36-46); Hemoglobin 10.9 g/dL (12.0-16.0); Lymphocytes Absolute Auto 500 /uL (1100-4500); Lymphocytes Percent Auto 2.9 % (25-40); Mean Corpuscular HGB Conc 33.2 % (30-36); Mean Corpuscular Hemoglobin 29.7 PG (26-34); Mean Corpuscular Volume 89.4 fL (80-100); Monocytes Absolute Auto 700 /uL (0-900); Monocytes Percent Auto 4.1 % (3-14); Neutrophils Absolute Auto 15200 /uL (1500-7000); Neutrophils Percent Auto 92.2 % (50-75); Platelet Count 247 X10^3/uL (150-400); Red Blood Cell Count 3.66 X10^6/uL (4.0-5.2); Red Cell Distribution Width 14.9 % (11.6-14.8); White Blood Cell Count 16.5 X10^3/uL (4.5-11.0)
[2018-08-23 06:33] LABS: Blood Urea Nitrogen 30 mg/dL (7-17); Carbon Dioxide 25 mmol/L (22-32); Chloride 99 mmol/L (98-107); Estimated Glomerular Filt Rate > 60.0 mL/min (>60); Glucose 98 mg/dL (80-110); HEMOLYSIS < 15 (0-50); Potassium 3.3 mmol/L (3.4-5.1); Sodium 132 mmol/L (137-145)
[2018-08-23] MEDS: FOLIC ACID 1 MG TABLET PO ×2 (09:13→20:19)
[2018-08-23] MEDS: FELODIPINE ER 5 MG TAB 10 MG PO (09:13)
[2018-08-23] MEDS: CYANOCOBALAMIN (VITAMIN B-12) 500 MCG TABLET 1000 MCG PO (09:13)
[2018-08-23] MEDS: CITALOPRAM 20 MG TABLET PO (09:14)
[2018-08-23] MEDS: LACTOBACILLUS ACIDOPHILUS TABLET 1 EACH PO ×2 (09:14→17:38)
[2018-08-23] MEDS: CELECOXIB 100 MG CAPSULE PO (09:14)
[2018-08-23] MEDS: predniSONE 5 MG TABLET PO (09:14)
[2018-08-23] MEDS: ASPIRIN 325 MG TABLET PO (09:14)
--- NOTE | 2018-08-23 11:24 | PM.PN.1 ---
Subjective Date Patient Seen: 08/23/18 Interval history: Griselda Helton is a 78-year-old female patient with a past medical history significant for severe rheumatoid arthritis on immunosuppressive therapy, hypertension, paroxysmal atrial fibrillation, gastroesophageal reflux and levoscoliosis of the thoracic lumbar spine who presented to the ED worsening redness and cellulitis of the right arm. The patient is resting in bed comfortably. She reports that her arm is looking somewhat better. She continues to have mild pain around the wound site on her right posterior forearm, otherwise, her cellulitis is not tender and is reducin within the margins of outline. She denies headache, shortness of breath, chest pain, abdominal pain, nausea, vomiting, fever, chills, dysuria, constipation. She is voiding and eliminating (chronically looser stool) without difficulty. She is up ambulating with assistance and PT/OT. Exam Vital Signs (past 8 hours): - 08/23/18 16:02 Temperature 98.3 F Pulse Rate 96 H Respiratory Rate 21 Blood Pressure 129/68 Pulse Oximetry 97 Oxygen Delivery Method Room Air Oxygen Flow Rate 0 Narrative Exam Narrative: General: Elderly female sitting in bed and in no acute distress, well-developed, well-nourished, appropriately interactive. HEENT: Normocephalic, atraumatic. External ears without defect. Pupils equal, round, and reactive to light. Anicteric sclerae, moist conjunctivae, and no lid lag. Neck: Supple with full range of motion. No lymphadenopathy or thyromegaly. Cardiovascular: Regular rate and rhythm without murmurs, rubs, or gallops appreciated. Pulmonary: Clear to auscultation bilaterally without crackles, wheezes, or rhonchi. Normal respiratory effort with no use of accessory muscles. Abdomen: Soft, scaphoid, bowel sounds present, nontender, nondistended. No hepatosplenomegaly or masses appreciated. Extremities: No clubbing, cyanosis, or edema. Significant swan neck deformity due to RA of both hands bilaterally R>L. Wound on right forearm 3 cm x 3 cm with granulation tissue. Skin: Normal temperature, turgor, and texture; no rash, ulcers, or subcutaneous nodules appreciated. Neurological: Cranial nerves grossly intact. Psychiatric: Normal mood and affect. Alert and oriented to person and place. Mild cognitive impairment vs. early dementia with short-term memory recall deficit. Objective Labs Result Diagrams: 08/25/18 05:15 08/25/18 05:15 Labs: Laboratory Results - last 24 hr 08/22/18 08/23/18 08/23/18 13:00 06:11 06:11 WBC 16.5 H RBC 3.66 L Hgb 10.9 L Hct 32.7 L MCV 89.4 MCH 29.7 MCHC 33.2 RDW 14.9 H Plt Count 247 Neut % (Auto) 92.2 H Lymph % (Auto) 2.9 L [place] % (Auto) 4.1 Eos % (Auto) 0.7 L Baso % (Auto) 0.1 Neut # (Auto) 69836 H Lymph # (Auto) 500 L [place] # (Auto) 700 Eos # (Auto) 100 Baso # (Auto) 0 Sodium 132 L Potassium 3.3 L Chloride 99 Carbon Dioxide 25 BUN 30 H Creatinine 0.60 Estimated GFR > 60.0 BUN/Creatinine Ratio 50.0 H Glucose 98 Calcium 8.0 L Magnesium 2.5 H Assessment & Plan Assessment & Plan narrative: Griselda Helton is a 78-year-old female patient with a past medical history significant for severe rheumatoid arthritis on immunosuppressive therapy, hypertension, paroxysmal atrial fibrillation, gastroesophageal reflux and levoscoliosis of the thoracic lumbar spine who presented to the ED worsening redness and cellulitis of the right arm. 1. Sepsis, present on admission. Resolved. -Sepsis criteria met including: Hypotensive (BP 96/52), Leukocyctosis (WBC 25.7), procalcitonin 3.35 with source right arm cellulitis and wound. LA elevated at 2.4 and trended until under 2.0. -Early goal directed therapy met including: IV fluid resuscitation and broad spectrum antibiotics. 2. Acute right arm cellulitis, present on admission. Active. -Patient sustained soft tissue injury to the right arm by dog scraping her x 4 days ago. She was seen in ER and discharged on Keflex and failed with cellulitis extending past magins. -Continue clindamycin 600 mg every 6 hours. -Received 2 L normal saline boluses in ED. Continue normal saline at 100 mL/hr. -Initial WBC 25.7 an procalcitonin 3.35. Now trending down. Continue to monitor CBC and procalcitonin daily. 3. Acute kidney injury, secondary to sepsis, present on exam. Resolving. -Delayed onset due to sepsis. -Initial Cr 1.20. Baseline 0.6. -Avoid nephrotoxin agents. -Continue IV fluids with normal saline at 100 mL/hr. 4. Paroxysmal atrial fibrillation, chronic, present on admission. Stable. -Patient with history of atrial fibrillation and developed atrial fibrillation with RVR in the ED with HR 140s. -Received diltiazem 10 mg IV x 1 with reduction of HR to 100s then spontaneously converted. -Continue felodipine 10 mg daily -Started aspirin 325 mg daily for VTE prophylaxis. Plan to discuss warfarin and NOAC. 5. Hypertension, chronic, present on admission. Stable. -Patient was hypotensive with SBP 90s upon arrival with minimal improvement after fluid bolusing. -Held losartan for now while BP low normal. 6. Rheumatoid arthritis, chronic, present on admission. Stable. -Rheumatoid arthritis bilateral hands with resulting in significant joint deformities. -Patient has been on hydrochloroquine and methotrexate which are held. -Continue prednisone 5 mg daily. -Continue Celebrex and tramadol. Disposition: Likely to discharge in several days depending on improvement in cellulitis with treatment. Quality VTE Deep Vein Thrombosis/Pulmonary Embolism Present on Admission: No
--- NOTE | 2018-08-23 11:37 | CM.DANOTE ---
DCP: Case received, EMR reviewed and met with patient. Introduced self and role. Was able to obtain information regarding her baseline health from patient. , Greg, at bedside. DCP assessment template completed with information available. Patient is a 78 year old female who admitted yesterday evening to the care of the hospitalist team. PCP: Dr. Aishwarya Richard. Payer: confirmed: [facility]. Patient came to hospital via family vehicle secondary to increased warmth and redness to her right arm. She had recently been seen for this, and had been on oral antibiotics. She apparently had scraped her arm. She holds diagnosis of Cellulitis. Patient is here for IV antibiotics. She also has history of osteoarthritis as well as a-fib. Patient is alert and oriented, and resides with her , Greg, here in [place]. She does not drive, but her takes her to appts, shopping, etc. She uses a walker occasionally at home. P:DCP to continue to follow. She should be able to return home when she is medically stable, and able to return on oral antibiotics. Patrica Branham RN/Money Counter
--- NOTE | 2018-08-23 11:44 | OT.IP.EVAL ---
Current Diagnoses Sepsis, unspecified organism (08/22/18) Past Medical History (Last Updated 08/23/18 @ 05:10 by KIRK Herrera) Atrial fibrillation (Acute) Gastroesophageal reflux (Acute) Osteoarthritis (Acute) Scoliosis (Acute) Hypertension (Acute) Rheumatoid arthritis (Acute) Surgical History (Last Updated 08/23/18 @ 05:11 by KIRK Herrera) History of spinal surgery (Acute) Occupational Therapy Inpatient Evaluation/Re-Eval M1 PT/OT-IP Prior Functional Status Start: 08/24/18 09:02 Freq: NEEDED Status: Active Protocol: Document 08/23/18 11:44 PJM (Rec: 08/24/18 09:30 PJ [id number]) Medical Review Prior Functional Status Medical History Reviewed Yes Diet/Fluid Consistency Regular Communication WNL Mobility and Gait Pt states she ambulates without a device in the house unless carrying items, then she uses her 4WW and places items on seat. Pt uses cane in community. Activities of Daily Living and IADL's Pt states she was independent with all self are and prefers tub bath. She dislikes showering. Her does all IADLS, except pt does her own laundry (on main level)and manages her own medications. drives. Prior Functional Level (Other details) Pt states she has had 2 falls in last 6 months. Social History Household Members spouse Living Arrangements House Number of Floors (Floors) Two Floors Number of Stairs To Enter/Railing? Pt stays on main floor of home . There are 6 stairs to entry of home, then 6 inside stairs up to main level. Pt uses one rail and cane on stairs. Home Environment High Toilet Tub/Shower Home Equipment Four Wheel Walker Straight Cane Employment Status Retired Additional Social History Comment pt states she does not need grab bar by tub as she has another object she pulls up on M2 OT-IP Current Condition Start: 08/24/18 09:02 Freq: Status: Active Protocol: Document 08/23/18 11:44 PJM (Rec: 08/24/18 09:30 PJ [id number]) Occupational Therapy Current Condition Current Condition Evaluation Date 08/23/18 Treatment Diagnosis decreased activity tolerance w /DX: RUE cellulitis, sepsis, AFIB w/RVR Diagnosis Onset Date 08/23/18 Post Operative Precautions Other Precautions mild fall risk M3 OT- IP Subjective and Pain Start: 08/24/18 09:02 Freq: Status: Active Protocol: Document 08/23/18 11:44 PJM (Rec: 08/24/18 09:30 PJ [id number]) OT- Subjective Occupational Therapy Visit Type Type Initial Evaluation Visit Start Time 11:00 Visit Stop Time 11:44 Occupational Therapy Visit Comments Patient Comments Do you think I can go home today? Patient/Caregiver Goals to go home as soon as possible OT Pain Assessment Pain When Pain Assessed After Treatment Pain Present Pain Present Pain Reported Location right arm Intensity 5 Scale Used Numeric (1 - 10) Description Acute Pressure Tender Pain Behaviors Facial Grimacing Guarding Management Techniques Elevation M4 OT- IP ADL's Start: 08/24/18 09:02 Freq: Status: Active Protocol: Document 08/23/18 11:44 PJM (Rec: 08/24/18 09:30 [facility] [id number]) OT [id number]-Alrb-Jgltruz General Evaluation Self-Feeding Ability Independent Areas Needing Assistance Cutting Food Opening Containers Comments OT Self-Feeding Comments Pt needs meal tray set up due ot decreased B hand function from severe RA deformities. Pt declines any adapted utensils. OT ADL-Grooming General Evaluation Grooming Ability Standby Assistance Areas Needing Assistance Combing/Brushing Hair Comments OT Grooming Comments washing hands at sink after using bathroom OT ADL-Oral Care General Eval Oral Care Ability Standby Assistance Devices Oral Care Devices Toothbrush Comments Oral Care Comments standing at sink OT ADL-Dressing General Eval Lower Body Dressing Ability Independent Areas Needing Assistance Underpants/Brief Socks Shoes Comments OT Dressing Comments pt wears slip on shoes OT ADL-Toileting General Evaluation Toileting Ability Independent Areas Needing Assistance Manage Clothing Perform Perineal Hygiene OT ADL-Bathing Comments OT Bathing Comments did not occur M5 OT- IP IADL's Start: 08/24/18 09:02 Freq: Status: Active Protocol: Document 08/23/18 11:44 PJM (Rec: 08/24/18 09:30 [facility] [id number]) OT-Instrumental Activities of Daily Living Deficits IADL Deficits Identified Deficits Home Safety Awareness Awareness of Need for Assistance at Home Good Awareness Ability to Problem Solve Emergency Able to Problem Solve Situations Medication Management Medication Management No Deficits Identified Money Management Money Management Caregiver Provides Assistance Money Management Comments assists Meal Preparation Meal Preparation Caregiver Provides Assist Meal Preparation Comments assists Application Packager Application Packager Caregiver Provides Assist Application Packager Comments assists Driving Driving Caregiver Provides Assist Driving Comments assists M6 OT- IP Functional Cognition Start: 08/24/18 09:02 Freq: Status: Active Protocol: Document 08/23/18 11:44 PJM (Rec: 08/24/18 09:30 PJ [id number]) Cognitive Factors Limiting Selfcare Function Cognitive Ability Level of Alertness Alert Patient Orientation Name Age Month Date Year Place Attention Span Ability Capable of Focused Attention Ability to Follow Commands Able to Follow One Step Commands Memory Description Short Term Impaired Safety Awareness Decreased Recall of Precautions Cognitive Comments Cognitive Assessment Comments Pt alert and oriented, but asking frequent questions about when she can go home with some decreased insight into current medical situation . RN reports she educated pt re: this prior to OT session. Pt mildly impulsive, moves quickly. OT- Vision and Hearing OT- Hearing Assessment OT- Hearing Assessment WFL OT- Vision Assessment Visual Acuity Glasses For Reading Vision Assessment Comments pt denies any recent changes M7 OT- IP Mobility and Balance Start: 08/24/18 09:02 Freq: Status: Active Protocol: Document 08/23/18 11:44 PJM (Rec: 08/24/18 09:30 [facility] [id number]) OT-Transfer Assessment Sit to and From Stand Sit to and from Stand Standby Assistance Transfers Transfer Ability Standby Assistance Technique Transfer Destination Chair Toilet Transfer Technique Stand Step Pivot Devices Transfer Assistive Devices Gait Belt Front Wheeled Walker Comments Mobility Comments pt normally ambulates without a device in her house, pt leaving FWW behind here and tends to furniture walk OT- Gait Assessment Gait Gait Assistance Required: Standby Assistance Distance (Feet) 25 Assistive Devices Assistive Device Gait Belt Front Wheeled Walker Comments Gait Ability Comments recommend P.T. assessment as pt has 6+6 stairs to enter home OT- Balance Assessment Sitting Balance and Reactions Static Sitting Balance Ability Good Dynamic Sitting Balance Ability Good Standing Balance and Reactions Static Standing Balance Ability Good Dynamic Standing Balance Ability Fair M8 OT- IP Objective Assessments Start: 08/24/18 09:02 Freq: Status: Active Protocol: Document 08/23/18 11:44 PJM (Rec: 08/24/18 09:30 PJ [id number]) OT Gross Range of Motion Upper Extremity Range of Motion ROM Impairments RUE shoulder AROM WFL, elbow flexion mildly limited at end range by edema in upper arm/ forearm, pronation WFL, supination to 30 degrees, wrist flex/ext ~30 degrees. Pt has severe RA deformities in R hand with severe ulnar drift with MP's contracted to -30 to -45 degrees. Pt has full passive IP extension, but only 1/2 range active IP extension. LUE shoulder, elbow, forearm AROM WFL, wrist flex/ext to ~ 45 degrees. Pt has less severe ulnar drift in L hand with MP 's contracted to -10 to -20 degrees with full active IP extension. Pt has swan neck deformity of L thumb. OT Strength Upper Extremity Strength Assessment Within Functional Limits Comments Strength Comments generally 4-/5 except 3+/5 in hands but WFL for self care OT- Coordination Assessment Comments Coordination Comments B hand coordination severely impaired by arthritic deformities as described above. Pt has difficulty with active release of objects in R hand. Pt unable to grasp object larger than 1/2 to 1 in R hand due to MP flexion contracture and ulnar drift OT-Muscle Tone Assessment Muscle Tone WNL Yes OT Sensation Assessment Comments Summary Comments Pt denies deficits in BUE's Edema Edema Present Edema Comments R forearm and upper arm with reddened skin noted. M9 OT- IP Assessment and Plan Start: 08/24/18 09:02 Freq: Status: Active Protocol: Document 08/23/18 11:44 PJM (Rec: 08/24/18 09:30 PJM [id number]) OT Summary Assessment and Plan Potential Rehabilitation Potential Good Analytic Complexity at Evaluation Low Summary OT Impairments Pain Balance Coordination Bathing Shower Transfers Assessment Summary Low complexity OT assessment completed on this 78 yr old pt with dx of RUE cellulitis and co- morbidity of severe RA. Pt appears close to her baseline level of function and has adapted to her severe arthritic hand deformities. She declines to use any adaptive equipment with some decreased insight into potential fall risk re: bottom of tub transfers at home. Plan 1 additional OT visit to ensure to back to self care baseline. Anticipate pt will be able to return home with 24 hr assist from when medically stable. Recommend P.T. assessment as pt has 6+6 stairs to access her home. Goals Bathing Goal Independent Shower Transfer Goal Independent Days to Meet Goals 1 Frequency of Treatment Frequency Of Treatment Once a Day Treatment Plan OT Treatment Plan ADL Training Functional Mobility Patient/Family Education Discharge Planning Discharge Recommendations OT Discharge Recommendations Home with / Assist
--- NOTE | 2018-08-23 17:58 | PC.NURSE ---
Addendum entered by Iva Cota R.N. 08/23/18 20:59: Relatively uneventful evening. Med w/tramadol at HS. Tele = NSR/PAC per ICU staff. IVF continue as per orders. Call light w/in reach/ bed alarm on for pt safety. Continue w/plan of care. Original Note: Pt watching TV. Denies any concerns at this time. Lungs clear, SpO2 96% RA IVF infusing into LFA via pump as per orders. Tele shows NSR/BBB/PVC per ICU staff. Call light w/in reach, bed alrm on for pt safety.
[2018-08-23] MEDS: DONEPEZIL 5 MG TABLET 10 MG PO (20:18)
[2018-08-23] MEDS: TRAMADOL 50 MG TABLET PO (20:26)
[2018-08-24] VITALS (12 sets, daily range): BP systolic 101–146; BP diastolic 43–116; PULSE 76–126; RESP 16–20; TEMP 36.2–37.1; O2SAT 92–98
[2018-08-24] MEDS: CLINDAMYCIN 600 MG/50 ML PIGGYBACK 50 MG IV ×4 (03:46→21:48)
[2018-08-24] MEDS: PANTOPRAZOLE 20 MG TABLET PO (06:09)
[2018-08-24] MEDS: SODIUM CHLORIDE 0.9% 1,000 ML 100 ML IV ×2 (08:31→21:50)
[2018-08-24] MEDS: TRAMADOL 50 MG TABLET PO ×2 (08:31→20:09)
[2018-08-24 09:36] LABS: Add Manual Diff / Slide Review NO; Basophils Absolute Auto 100 /uL (0-100); Basophils Percent Auto 0.5 % (0-2); Eosinophils Absolute Auto 100 /uL (0-450); Eosinophils Percent Auto 0.5 % (2-4); Hematocrit 33.3 % (36-46); Hemoglobin 10.6 g/dL (12.0-16.0); Lymphocytes Absolute Auto 400 /uL (1100-4500); Lymphocytes Percent Auto 3.5 % (25-40); Mean Corpuscular Volume 90.8 fL (80-100); Monocytes Absolute Auto 700 /uL (0-900); Monocytes Percent Auto 5.2 % (3-14); Neutrophils Absolute Auto 11500 /uL (1500-7000); Neutrophils Percent Auto 90.3 % (50-75); Platelet Count 298 X10^3/uL (150-400); Red Blood Cell Count 3.66 X10^6/uL (4.0-5.2); White Blood Cell Count 12.7 X10^3/uL (4.5-11.0)
[2018-08-24 09:51] LABS: Alanine Aminotransferase 39 IU/L (9-52); Albumin 3.1 g/dL (3.5-5.0); Albumin Globulin Ratio 1.2 (1.0-2.8); Alkaline Phosphatase 94 U/L (38-126); Aspartate Aminotransferase 31 IU/L (14-36); Bilirubin Total 0.5 mg/dL (0.2-1.3); Blood Urea Nitrogen 12 mg/dL (7-17); Carbon Dioxide 25 mmol/L (22-32); Chloride 100 mmol/L (98-107); Estimated Glomerular Filt Rate > 60.0 mL/min (>60); Globulin 2.6 g/dL (1.7-4.1); Glucose 109 mg/dL (80-110); HEMOLYSIS < 15 (0-50); Magnesium 1.8 mg/dL (1.6-2.3); Potassium 3.1 mmol/L (3.4-5.1); Sodium 133 mmol/L (137-145); Total Protein 5.7 g/dL (6.3-8.2)
[2018-08-24] MEDS: CITALOPRAM 20 MG TABLET PO (09:59)
[2018-08-24] MEDS: FELODIPINE ER 5 MG TAB 10 MG PO (09:59)
[2018-08-24] MEDS: CYANOCOBALAMIN (VITAMIN B-12) 500 MCG TABLET 1000 MCG PO (09:59)
[2018-08-24] MEDS: FOLIC ACID 1 MG TABLET PO ×2 (09:59→20:04)
[2018-08-24] MEDS: LACTOBACILLUS ACIDOPHILUS TABLET 1 EACH PO ×2 (09:59→17:20)
[2018-08-24] MEDS: ASPIRIN 325 MG TABLET PO (10:00)
[2018-08-24] MEDS: CELECOXIB 100 MG CAPSULE PO (10:00)
[2018-08-24 10:02] LABS: Procalcitonin 0.55 ng/mL (<0.5)
[2018-08-24 10:03] LABS: Calcium 7.4 mg/dL (8.4-10.2)
[2018-08-24] MEDS: predniSONE 5 MG TABLET PO (10:04)
--- NOTE | 2018-08-24 11:16 | PC.NURSE ---
Addendum entered by Monica Meza R.N. 08/24/18 13:01: Rec'd call from DAMASO Flowers at 1235 in ICU, pt HR up to 163, sustained afib with RVR. Spoke with Dr. Bazan at 1240, new orders rec'd. Diltiazem 5mg given at 1253. Plan for pt to start Diltiazem po tonight at 2100 dose. Pt updated and aware. Original Note: DAy Shift- pt A&OX4, wants to go home today. Rates 7-8/10 pain, warmth to right FA skin tear area. Tramadol 50mg prn given at 0832. Upon reassessment, pain 7/10. Right FA dressing removed as dressing was loose. Adaptic soaked with NS to loosen. Pt tolerated well. Area cleansed with NS. Adaptic placed over wound bed, 2-4X4 dry gauze placed over and secured with Coban. Right forearm edematous, slightly less than yesterday day shift assessment. Warm to touch, redness/pink exceeding slightly pass previously marked line. Right lower leg dressing CDI covering skin tear. OOB with SBA, pt using her cane. High fall risk precautions in place, pt uses call light appropriately.
[2018-08-24] MEDS: dilTIAZem 5 MG/ML SDV IV (12:53)
--- NOTE | 2018-08-24 15:36 | PT.IIE ---
Current Diagnoses Sepsis, unspecified organism (08/22/18) Surgical History (Last Updated 08/23/18 @ 05:11 by KIRK Herrera) History of spinal surgery (Acute) Medical History (Last Updated 08/23/18 @ 05:10 by KIRK Herrera) Atrial fibrillation (Acute) Gastroesophageal reflux (Acute) Osteoarthritis (Acute) Scoliosis (Acute) Hypertension (Acute) Rheumatoid arthritis (Acute) Physical Therapy Inpatient Evaluation/Re-Eval M1 PT/OT-IP Prior Functional Status Start: 08/24/18 09:02 Freq: NEEDED Status: Active Protocol: Document 08/23/18 11:44 PJM (Rec: 08/24/18 09:30 PJM [id number]) Medical Review Prior Functional Status Medical History Reviewed Yes Diet/Fluid Consistency Regular Communication WNL Mobility and Gait Pt states she ambulates without a device in the house unless carrying items, then she uses her 4WW and places items on seat. Pt uses cane in community. Activities of Daily Living and IADL's Pt staes she was independent with all self are and prefers tub bath. She dislikes showering. Hr does all IADLS, except pt does her own laundry (on main level)and manages her own medications. drives. Prior Functional Level (Other details) Pt states she ahs had 2 falls in last 6 months. Social History Household Members spouse Living Arrangements House Number of Floors (Floors) Two Floors Number of Stairs To Enter/Railing? Pt stays on main floor of home . There are 6 stairs to entry of home, then 6 inside stiars up to main level. Pt uses one rail and cane on stairs. Home Environment High Toilet Tub/Shower Home Equipment Four Wheel Walker Straight Cane Employment Status Retired Additional Social History Comment pt states she does not need grab bar by tub as she has another object she pulls up on M1 PT/OT-IP Prior Functional Status Start: 08/24/18 17:56 Freq: NEEDED Status: Active Protocol: Document 08/24/18 15:36 AB (Rec: 08/24/18 18:11 AB [id number]) Medical Review Prior Functional Status Medical History Reviewed Yes Diet/Fluid Consistency Regular Communication able to make needs known Mobility and Gait pt stated that she is modified independent with all mobilities and ambulation without AD indoors but occasionally uses a 4WW to carry her things on; uses a SPC for outdoor mobility Activities of Daily Living and IADL's Per OT's note: Pt staes she was independent with all self are and prefers tub bath. She dislikes showering. Hr does all IADLS, except pt does her own laundry (on main level)and manages her own medications. drives. Prior Functional Level (Other details) pt with h/o falls: stated that last fall was last week. Social History Household Members spouse children Living Arrangements House Number of Floors (Floors) Two Floors Number of Stairs To Enter/Railing? pt stays on the main level of the house: has 6 steps with R rail ascending to get to the deck; has 10 steps with R rail to get to main level of the house Home Environment High Toilet Walk in Shower Tub/Shower Built-In Shower Seat Home Equipment Four Wheel Walker Straight Cane Hand Held Shower Grab Bars Near Toilet Grab Bars In Shower Employment Status Retired Additional Social History Comment pt does not have grab bars by the tub but has one in her walk in shower M2 PT-IP Current Condition Start: 08/24/18 17:56 Freq: NEEDED Status: Active Protocol: Document 08/24/18 15:36 AB (Rec: 08/24/18 18:11 [id number]) Physical Therapy Current Condition Current Condition Evaluation Date 08/24/18 Treatment Diagnosis sepsis; R arm cellulitis; difficulty in walking Onset Date 08/22/18 Precautions Other Precautions falls M3 PT-IP Subjective Start: 08/24/18 17:56 Freq: NEEDED Status: Active Protocol: Document 08/24/18 15:36 AB (Rec: 08/24/18 18:11 [id number]) Subjective Physical Therapy Visit Type Type Initial Evaluation Visit Start Time 15:36 Visit Stop Time 16:18 Total Visit Minutes 42 Number of FIRER BOILER Visits 0 Physical Therapy Visit Comments Patient Comments pt agreeable to do PT M4 PT-IP Mobility and Gait Start: 08/24/18 17:56 Freq: NEEDED Status: Active Protocol: Document 08/24/18 15:36 AB (Rec: 08/24/18 18:11 [id number]) PT-Bed Mobility Assessment Supine to Sit Supine to Sit Standby Assistance Sit to Supine Sit to Supine Standby Assistance PT-Transfer Assessment Sit to and From Stand Sit to and from Stand Standby Assistance Use of Upper Extremities Equipment Transfer Assistive Device Gait Belt Front Wheeled Walker Orthotic/Prosthetic Devices or Brace: No Transfers Transfer Destination Chair Transfer Technique pt ambulated using FWW Transfer Ability Level of Assist Standby Assistance Contact Guard Assistance 1 Person Assistance Gait Assessment Gait Gait Assistance Required: Standby Assistance Distance (Feet) 75 Able to Maintain Weight Bearing Status Yes During Gait Assistive Devices Assistive Device Gait Belt Straight Cane Front Wheeled Walker 4 Wheeled Walker Orthotic/Prosthetic Devices or Brace: No Gait Deviations General Gait Pattern Antalgic Decreased Stride Length Decreased Feet Clearance Factors Limiting Gait Function Factors Limiting Gait Function Decreased Activity Tolerance Decreased Strength Poor Balance Poor Safety Awareness Comments Gait Comments pt ambulated using FWW SBA ~ 40 ft in room. Assessed ambulation using SPC and completed ~ 30 ft requiring CGA and cues. Assessed ambulation using 4WW and completed ~ [address] requiring SBA and cues. Stair Climbing Assessment Evaluation Level of Assist On Stairs Minimal Assistance 1 Person Assistance Devices Stair Climbing Assistive Devices Straight Cane Right Railing Technique/Endurance Stair Climbing Direction Ascend and Descend Stair Climbing Technique Step to Step Number of Steps Climbed 1 Query Text: Stair Climbing Set # Repetitions (reps) 4 Comments Stair Climbing Comments pt completed up/down step stool with R rail and L SPC ascending PT-Balance Assessment Sitting Balance and Reactions Static Sitting Balance Ability Good Dynamic Sitting Balance Ability Good Standing Balance and Reactions Static Standing Balance Ability Fair Dynamic Standing Balance Ability Fair Device Used FWW M5 PT-IP Objective Assessments Start: 08/24/18 17:56 Freq: NEEDED Status: Active Protocol: Document 08/24/18 15:36 AB (Rec: 08/24/18 18:11 AB [id number]) Orientation Orientation/Cognition Level of Alertness Alert Orientation Name Place Situation Safety Awareness Decreased Safety Awareness Memory Description Short Term Impaired Gross Range of Motion Lower Extremity ROM Assessment Within Functional Limits Strength Lower Extremity Strength Assessment Bilaterally Impaired Comments Strength Comments LLE: 4-/5 RLE 3+/5 Muscle Tone Muscle Tone WNL Yes M6 PT-IP Treatment Start: 08/24/18 17:56 Freq: NEEDED Status: Active Protocol: Document 08/24/18 15:36 AB (Rec: 08/24/18 18:11 AB [id number]) Physical Therapy Treatment Education Education Provided Safety M7 PT-IP Assessment and Plan Start: 08/24/18 17:56 Freq: NEEDED Status: Active Protocol: Document 08/24/18 15:36 AB (Rec: 08/24/18 18:11 AB [id number]) PT Summary Assessment and Plan Potential Rehabilitation Potential Good Status of Condition at Evaluation Stable Summary Impairments Pain Strength Balance Coordination Sensation Cognition Bed Mobility Transfers Gait Activity Tolerance Assessment Summary pt requiring SBA to CGA with mobility. pt plans to go home with spouse and/or her daughter to assist her. pt with h/o falls and will benefit from outpt PT to improve standing balance and overall strength to progress with functional independence. Goals Bed Mobility Goal Independent Transfer Goal Independent Cane Four Wheeled Walker Gait Goal Independent Cane Four Wheel Walker Gait Distance 200 Other Goals up/down 10 steps R rail ascending and L SPC SBA Days to Meet Goals 5 Frequency of Treatment Frequency Of Treatment Once a Day Treatment Plan Physical Therapy Treatment Plan Bed Mobility Training Transfer Training Gait Training Therapeutic Exercise Balance Retraining Discharge Planning Hot or Cold Pack Neuromuscular Re-ed Coordination Retraining Manual Therapy Recommendations To Nursing Amount of Assist Needed 1 Person Assist Discharge Recommendations PT Discharge Recommendations Home with 26/10 Assist Outpatient PT
--- NOTE | 2018-08-24 16:06 | OT.IP.TRT ---
Current Diagnoses Sepsis, unspecified organism (08/22/18) Occupational Therapy Treatment Note M2 OT-IP Current Condition Start: 08/24/18 09:02 Freq: Status: Active Protocol: Document 08/23/18 11:44 PJM (Rec: 08/24/18 09:30 PJM [id number]) Occupational Therapy Current Condition Current Condition Evaluation Date 08/23/18 Treatment Diagnosis decreased activity tolerance w /DX: RUE cellulitis, sepsis, AFIB w/RVR Diagnosis Onset Date 08/23/18 Post Operative Precautions Other Precautions mild fall risk M3 OT- IP Subjective and Pain Start: 08/24/18 09:02 Freq: Status: Active Protocol: Document 08/24/18 16:05 PJM (Rec: 08/24/18 16:06 PJM [id number]) OT- Subjective Occupational Therapy Visit Type Type Administrative Note Notes Attempted to see pt x2 for shower in AM and PM, but she would like to wait until tomorrow. Showering is OT's last goal with pt prior to d/c. No charge.
--- NOTE | 2018-08-24 17:54 | PC.NURSE ---
Wound Ostomy Nurse Consult Note Griselda was up washing her face with her nurse when I arrived. She got back into bed and she told me how her dog hit her arm with it's paw. She misses her dog very much and her in fact had just brought the dog to the hospital so Griselda could see it from her window. Griselda is eager to get home but understands that she may not go home today because she has had a heart issue. I instructed her that I would look at her arm and I would give Dr. Hendricks the wound care doctor an update on her wound. Griselda's right arm skin tear measures 4.0 x 4.4x 0.3cm. There is some slough which I was able to wipe away with Normal Saline on gauze. The berta-wound is slightly warm and the redness that was marked on her arm is dissipating. Around her elbow area she still has some edema and what appears to be very small white heads. I do not think Dr. Hendricks would debride this wound at this time. I applied adaptic then gauze, roll gauze and secured the roll gauze with tape. I did not replace the coban as I feel this can get too tight on the arm. I would recommend using xeroform gauze instead of adaptic as it will add a little antimicrobial effect to protect the wound. I would also recommend that the patient follow up with her PCP regarding the wound or come to the wound care center for follow up. I did speak with Dr. Hendricks regarding Griselda's wound. He agreed with the dressing choice and to have patient follow up with her PCP or see him at the wound care center.
[2018-08-24] MEDS: dilTIAZem 30 MG TABLET PO (18:48)
[2018-08-24] MEDS: MAGNESIUM SULFATE 2 GM/50 ML PIGGYBACK IV (19:45)
[2018-08-24] MEDS: POTASSIUM CHLORIDE 60 MEQ in SODIUM CHLORIDE 0.9% 500 ML 88.333 ML IV (19:50)
[2018-08-24] MEDS: DONEPEZIL 5 MG TABLET 10 MG PO (20:04)
--- NOTE | 2018-08-24 23:43 | P.PN_ITS ---
Subjective Date Patient Seen: 08/24/18 Interval history: Griselda Helton is a 78-year-old female patient with a past medical history significant for severe rheumatoid arthritis on immunosuppressive therapy, hypert ension, paroxysmal atrial fibrillation, gastroesophageal reflux and levoscoliosis of the thoracic lumbar spine who presented to the ED worsening redness and cellulitis of the right arm. Interval history: Patient went into atrial fibrillation with RVR heart rate 160s earlier this morning. She was given diltiazem 5 mg IV x1 and started on short-acting diltiazem 30 mg every 6 hours. The patient is resting in bed comfortably. She reports that her right arm cellulitis is continuing to improve. Wound Care assessed wound this morning and plan to consider debridement. She continues to have mild pain around the wound site on her right posterior forearm, otherwise, her cellulitis is not tender and continues to regress with skin now becoming more wrinkled. Discussed atrial fibrillation and irregular heartbeat for which the patient is unsure if she has ever had. Questionable mild dementia as patient has short-term memory recall deficit. She is able to tell me she was once on warfarin but is unsure why she was on it or why she was taken off. She denies headache, shortness of breath, chest pain, abdominal pain, nausea, vomiting, fever, chills, dysuria, constipation. She is voiding and eliminating (chronically looser stool) without difficulty. She is up ambulating with assistance and PT/OT. Exam Vital Signs (past 8 hours): - 08/24/18 18:48 08/24/18 19:40 Temperature 97.2 F L Pulse Rate 126 H 91 H Respiratory Rate 16 Blood Pressure 120/66 131/76 Pulse Oximetry 95 Oxygen Delivery Method Room Air Oxygen Flow Rate 0 Narrative Exam Narrative: General: Elderly female sitting in bed and in no acute distress, well- developed, well-nourished, appropriately interactive. HEENT: Normocephalic, atraumatic. External ears without defect. Pupils equal, round, and reactive to light. Anicteric sclerae, moist conjunctivae, and no lid lag. Neck: Supple with full range of motion. No lymphadenopathy or thyromegaly. Cardiovascular: Irregularly irregular without murmurs, rubs, or gallops appreciated. Pulmonary: Clear to auscultation bilaterally without crackles, wheezes, or rhonc hi. Normal respiratory effort with no use of accessory muscles. Abdomen: Soft, scaphoid, bowel sounds present, nontender, nondistended. No hepatosplenomegaly or masses appreciated. Extremities: No clubbing, cyanosis, or edema. Significant swan neck deformity due to RA of both hands bilaterally R>L. Wound on right forearm 3 cm x 3 cm with granulation tissue now with dressing in place C/D/I. Skin: Normal temperature, turgor, and texture; no rash, ulcers, or subcutaneous nodules appreciated. Neurological: Cranial nerves grossly intact. Psychiatric: Normal mood and affect. Alert and oriented to person and place. Mild cognitive impairment vs. early dementia with short-term memory recall deficit. Objective Labs Result Diagrams: 08/25/18 05:15 08/25/18 05:15 Labs: Laboratory Results - last 24 hr 08/24/18 08/24/18 08/24/18 09:27 09:27 09:27 WBC 12.7 H RBC 3.66 L Hgb 10.6 L Hct 33.3 L MCV 90.8 MCH 29.0 MCHC 32.0 RDW 15.0 H Plt Count 298 Neut % (Auto) 90.3 H Lymph % (Auto) 3.5 L Sterling % (Auto) 5.2 Eos % (Auto) 0.5 L Baso % (Auto) 0.5 Neut # (Auto) 48968 H Lymph # (Auto) 400 L Sterling # (Auto) 700 Eos # (Auto) 100 Baso # (Auto) 100 Sodium 133 L Potassium 3.1 L Chloride 100 Carbon Dioxide 25 BUN 12 Creatinine 0.50 L Estimated GFR > 60.0 BUN/Creatinine Ratio 24.0 H Glucose 109 Calcium 7.4 L Magnesium 1.8 Total Bilirubin 0.5 AST 31 ALT 39 Alkaline Phosphatase 94 Total Protein 5.7 L Albumin 3.1 L Globulin 2.6 Albumin/Globulin Ratio 1.2 Procalcitonin 0.55 H Assessment & Plan Assessment & Plan narrative: Griselda Helton is a 78-year-old female patient with a past medical history significant for severe rheumatoid arthritis on immunosuppressive therapy, hypertension, paroxysmal atrial fibrillation, gastroesophageal reflux and levoscoliosis of the thoracic lumbar spine who presented to the ED worsening redness and cellulitis of the right arm. 1. Sepsis, present on admission. Resolved. -Sepsis criteria met including: Hypotensive (BP 96/52), Leukocyctosis (WBC 25.7), procalcitonin 3.35 with source right arm cellulitis and wound. LA elevated at 2.4 and trended until under 2.0. -Early goal directed therapy met including: IV fluid resuscitation and broad spectrum antibiotics. 2. Acute right arm cellulitis with wound secondary to dog scrape, present on admission. Active. -Patient sustained soft tissue injury to the right arm by dog scraping her x 4 days ago. She was seen in ER and discharged on Keflex and failed with cellulitis extending past magins. -Continue clindamycin 600 mg every 6 hours. -Received 2 L normal saline boluses in ED. Discontinued IV fluids as patient is adequately hydrated. -Initial WBC 25.7 an procalcitonin 3.35. Continue to trend down. Continue to monitor CBC and procalcitonin daily. 3. Paroxysmal atrial fibrillation with RVR, chronic, present on admission. Active. -Patient with history of atrial fibrillation and developed atrial fibrillation with RVR in the ED with HR 140s. -Received diltiazem 10 mg IV x 1 with reduction of HR to 100s then spontaneously converted. -Discontinued felodipine. Started diltiazem 30 mg every 6 hours. -Discontinued aspirin. Started Xarelto 20 mg daily. Plan to have preauthorization for NOAC's and will adjust to what is covered by insurance. 4. Acute kidney injury, secondary to sepsis, present on exam. Resolved. -Initial Cr 1.20. Baseline 0.6. -Avoid nephrotoxin agents. -Continue IV fluids with normal saline at 100 mL/hr. 5. Hypertension, chronic, present on admission. Stable. -Patient was hypotensive with SBP 90s upon arrival with minimal improvement after fluid bolusing. -Held losartan for now while BP low normal. 6. Rheumatoid arthritis, chronic, present on admission. Stable. -Rheumatoid arthritis bilateral hands with resulting in significant joint deformities. -Patient has been on hydrochloroquine and methotrexate which are held. -Continue prednisone 5 mg daily. -Continue Celebrex and tramadol. Disposition: Likely to discharge in 1-2 days depending on improvement in cellulitis with treatment. Quality VTE Deep Vein Thrombosis/Pulmonary Embolism Present on Admission: No
[2018-08-25] MEDS: dilTIAZem 30 MG TABLET PO ×2 (00:31→06:07)
[2018-08-25 03:00] VITALS: BP 136/63; PULSE 77; RESP 18; TEMP 37.2; O2SAT 92
[2018-08-25] MEDS: CLINDAMYCIN 600 MG/50 ML PIGGYBACK 50 MG IV ×2 (03:46→10:51)
[2018-08-25 05:58] LABS: Add Manual Diff / Slide Review NO; Basophils Absolute Auto 100 /uL (0-100); Basophils Percent Auto 0.6 % (0-2); Eosinophils Absolute Auto 300 /uL (0-450); Eosinophils Percent Auto 2.1 % (2-4); Hematocrit 32.1 % (36-46); Hemoglobin 10.4 g/dL (12.0-16.0); Lymphocytes Absolute Auto 1000 /uL (1100-4500); Lymphocytes Percent Auto 6.9 % (25-40); Mean Corpuscular HGB Conc 32.5 % (30-36); Mean Corpuscular Hemoglobin 29.5 PG (26-34); Mean Corpuscular Volume 90.7 fL (80-100); Monocytes Absolute Auto 1200 /uL (0-900); Monocytes Percent Auto 8.5 % (3-14); Neutrophils Absolute Auto 11800 /uL (1500-7000); Neutrophils Percent Auto 81.9 % (50-75); Platelet Count 304 X10^3/uL (150-400); Red Blood Cell Count 3.54 X10^6/uL (4.0-5.2); Red Cell Distribution Width 15.1 % (11.6-14.8); White Blood Cell Count 14.4 X10^3/uL (4.5-11.0)
[2018-08-25] MEDS: PANTOPRAZOLE 20 MG TABLET PO (06:04)
[2018-08-25 06:07] LABS: Alanine Aminotransferase 33 IU/L (9-52); Albumin Globulin Ratio 1.2 (1.0-2.8); Alkaline Phosphatase 95 U/L (38-126); Aspartate Aminotransferase 28 IU/L (14-36); Bilirubin Total 0.4 mg/dL (0.2-1.3); Blood Urea Nitrogen 12 mg/dL (7-17); Calcium 7.5 mg/dL (8.4-10.2); Carbon Dioxide 26 mmol/L (22-32); Chloride 102 mmol/L (98-107); Estimated Glomerular Filt Rate > 60.0 mL/min (>60); Globulin 2.6 g/dL (1.7-4.1); Glucose 97 mg/dL (80-110); HEMOLYSIS < 15 (0-50); Magnesium 2.5 mg/dL (1.6-2.3); Potassium 3.8 mmol/L (3.4-5.1); Sodium 134 mmol/L (137-145); Total Protein 5.6 g/dL (6.3-8.2)
--- NOTE | 2018-08-25 06:20 | PC.NURSE ---
@0100: Right forearm dressing became saturated with blood. Cleansed with NS. Petroleum fenestrated gauze applied, topped with some 4x4 gauze pads, wrapped in kerlix. Tolerated well. Maintenance IVF d/c'ed. Patient had a short run of SVT as per READING COACH. Asymptomatic, HR in the 80s otherwise. Tele readings as NSR and 1st AVB. No chest pain or palpitations. New IV started
[2018-08-25 06:37] LABS: Procalcitonin 0.28 ng/mL (<0.5)
[2018-08-25 06:42] LABS: TSH w/ Reflex to FT4 0.37 uIU/mL (0.47-4.68)
[2018-08-25 07:12] LABS: Free T4, Direct Thyroxine 1.94 ng/dL (0.78-2.19)
[2018-08-25 08:15] VITALS: BP 132/77; PULSE 86; RESP 16; TEMP 36.7; O2SAT 94
[2018-08-25] MEDS: FOLIC ACID 1 MG TABLET PO (08:16)
[2018-08-25] MEDS: RIVAROXABAN 10 MG TABLET 20 MG PO (08:16)
[2018-08-25] MEDS: CELECOXIB 100 MG CAPSULE PO (08:16)
[2018-08-25] MEDS: LACTOBACILLUS ACIDOPHILUS TABLET 1 EACH PO (08:17)
[2018-08-25] MEDS: CYANOCOBALAMIN (VITAMIN B-12) 500 MCG TABLET 1000 MCG PO (08:17)
[2018-08-25] MEDS: predniSONE 5 MG TABLET PO (08:19)
[2018-08-25] MEDS: CITALOPRAM 20 MG TABLET PO (08:19)
[2018-08-25] MEDS: dilTIAZem CD 120 MG CAP PO (08:25)
--- NOTE | 2018-08-25 09:20 | PT.IPTN ---
Current Diagnoses Sepsis, unspecified organism (08/22/18) Physical Therapy Treatment Note M2 PT-IP Current Condition Start: 08/24/18 17:56 Freq: NEEDED Status: Active Protocol: Document 08/24/18 15:36 AB (Rec: 08/24/18 18:11 AB [id number]) Physical Therapy Current Condition Current Condition Evaluation Date 08/24/18 Treatment Diagnosis sepsis; R arm cellulitis; difficulty in walking Onset Date 08/22/18 Precautions Other Precautions falls M3 PT-IP Subjective Start: 08/24/18 17:56 Freq: NEEDED Status: Active Protocol: Document 08/25/18 09:20 GGD (Rec: 08/25/18 11:52 GGD [id number]) Subjective Physical Therapy Visit Type Type Treatment Note Visit Start Time 08:55 Visit Stop Time 09:20 Total Visit Minutes 25 Number of COSMETIC DENTIST Visits 1 Physical Therapy Visit Comments Patient Comments Pt states she feels ready to go home. M4 PT-IP Mobility and Gait Start: 08/24/18 17:56 Freq: NEEDED Status: Active Protocol: Document 08/25/18 09:20 GGD (Rec: 08/25/18 11:52 GGD [id number]) PT-Transfer Assessment Sit to and From Stand Sit to and from Stand Standby Assistance Use of Upper Extremities Equipment Transfer Assistive Device Gait Belt Straight Cane 4 Wheeled Walker Orthotic/Prosthetic Devices or Brace: No Transfers Transfer Destination Chair Transfer Ability Level of Assist Contact Guard Assistance 1 Person Assistance Use of Upper Extremities Gait Assessment Gait Gait Assistance Required: Standby Assistance Distance (Feet) 280 Able to Maintain Weight Bearing Status Yes During Gait Assistive Devices Assistive Device Gait Belt Straight Cane 4 Wheeled Walker Orthotic/Prosthetic Devices or Brace: No Gait Deviations General Gait Pattern Antalgic Decreased Stride Length Decreased Feet Clearance Factors Limiting Gait Function Factors Limiting Gait Function Decreased Activity Tolerance Decreased Strength Poor Balance Poor Safety Awareness Comments Gait Comments pt ambulated using SPC and completed 140 ft requiring CGA and cues. Then, ambulation using 4WW x140 feet with SBA. M5 PT-IP Objective Assessments Start: 08/24/18 17:56 Freq: NEEDED Status: Active Protocol: Document 08/24/18 15:36 AB (Rec: 08/24/18 18:11 AB [email or web address]) Orientation Orientation/Cognition Level of Alertness Alert Orientation Name Place Situation Safety Awareness Decreased Safety Awareness Memory Description Short Term Impaired Gross Range of Motion Lower Extremity ROM Assessment Within Functional Limits Strength Lower Extremity Strength Assessment Bilaterally Impaired Comments Strength Comments LLE: 4-/5 RLE 3+/5 Muscle Tone Muscle Tone WNL Yes M6 PT-IP Treatment Start: 08/24/18 17:56 Freq: NEEDED Status: Active Protocol: Document 08/24/18 15:36 AB (Rec: 08/24/18 18:11 AB [id number]) Physical Therapy Treatment Education Education Provided Safety M7 PT-IP Assessment and Plan Start: 08/24/18 17:56 Freq: NEEDED Status: Active Protocol: Document 08/25/18 09:20 GGD (Rec: 08/25/18 11:52 GGD [id number]) PT Summary Assessment and Plan Summary Assessment Summary Pt improving with mobility. She had no LOB wiht gait with SPC. She is safer with 4WW with increase in stability. Pt safe for home D/C when medically stable. Frequency of Treatment Frequency Of Treatment Once a Day Treatment Plan Physical Therapy Treatment Plan Bed Mobility Training Transfer Training Gait Training Therapeutic Exercise Balance Retraining Discharge Planning Hot or Cold Pack Neuromuscular Re-ed Coordination Retraining Manual Therapy Recommendations To Nursing Amount of Assist Needed 1 Person Assist Discharge Recommendations PT Discharge Recommendations Home with Assistance
--- NOTE | 2018-08-25 09:53 | PC.NURSE ---
Pt denies pain. Given medications crushed in apple sauce and tolerated well. Visited with family for a while and she is now napping. Pt has not voided yet this am. Her bp is running low at 90s/40s and pt is asymptomatic. She is sleeping at this moment Will check on patient to see if she has voided in 1 hour.
--- NOTE | 2018-08-25 10:51 | OT.IP.TRT ---
Current Diagnoses Sepsis, unspecified organism (08/22/18) Occupational Therapy Treatment Note M3 OT- IP Subjective and Pain Start: 08/24/18 09:02 Freq: Status: Active Protocol: Document 08/25/18 10:51 PJM (Rec: 08/25/18 16:24 PJ [id number]) OT- Subjective Occupational Therapy Visit Type Type Treatment Note Visit Start Time 10:24 Visit Stop Time 10:51 Total Visit Minutes 27 Notes Pt just exiting shower with LOAN SERVICING OFFICER when therapist arrived. Occupational Therapy Visit Comments Patient Comments Can I dry my hair? Patient/Caregiver Goals to go home as soon as possible OT Pain Assessment Pain When Pain Assessed After Treatment Pain Present Pain Present Denied Pain M4 OT- IP ADL's Start: 08/24/18 09:02 Freq: Status: Active Protocol: Document 08/25/18 10:51 PJM (Rec: 08/25/18 16:24 PJ [id number]) OT ADL-Grooming General Evaluation Grooming Ability Independent Areas Needing Assistance Combing/Brushing Hair Comments OT Grooming Comments Pt stood at sink for total of 15 min to blow dry hair and brush hair. Pt took 2 seated rest breaks to continue task. Pt states she has bench in bathroom that she sits on when tired. Performs slowly. OT ADL-Bathing Bathing Type Bathing Type Shower Comments OT Bathing Comments LOAN SERVICING OFFICER reports pt indep with shower after set up. Pt completed 50% of shower seated on shower seat. Pt agrees that using her shower stall with shower chair at home would be safer and easier than bottom of tub bath. M7 OT- IP Mobility and Balance Start: 08/24/18 09:02 Freq: Status: Active Protocol: Document 08/25/18 10:51 PJM (Rec: 08/25/18 16:24 PJ [id number]) OT- Bed Mobility Assessment Sit to Supine Sit to Supine Assist Independent OT-Transfer Assessment Sit to and From Stand Sit to and from Stand Standby Assistance Technique Transfer Destination Chair Devices Transfer Assistive Devices None Comments Mobility Comments Pt ambulates without a device in her home, but states she uses furniture for support. OT- Gait Assessment Gait Gait Assistance Required: Standby Assistance Distance (Feet) 15 Assistive Devices Assistive Device None Comments Gait Ability Comments no loss of balance noted OT- Balance Assessment Sitting Balance and Reactions Static Sitting Balance Ability Good Dynamic Sitting Balance Ability Good Standing Balance and Reactions Static Standing Balance Ability Good Dynamic Standing Balance Ability Good Comments Other Balance Tests/Deviations/Treatment standing at sink to blow dry : hair without a device M9 OT- IP Assessment and Plan Start: 08/24/18 09:02 Freq: Status: Active Protocol: Document 08/25/18 10:51 PJM (Rec: 08/25/18 16:24 PJM [id number]) OT Summary Assessment and Plan Summary Progress Towards Goals Safe For Discharge Goals Met Assessment Summary All OT goals achieved for this admission. Pt agrees to use shower stall at home rather than take tub bath for improved energy conservation and safety. Note pt appears mildly confused by controls on familiar hairspring setter and appears to have short term memory deficits. Pt hopes to d/c home today or tomorrow pending medical status. No further OT services needed. Frequency of Treatment Frequency Of Treatment Discharge Discharge Recommendations OT Discharge Recommendations Home with 24/ Assist Home Equipment Needs none
[2018-08-25 11:15] VITALS: BP 129/70; PULSE 92; RESP 16; TEMP 37.2; O2SAT 95
--- NOTE | 2018-08-25 14:10 | CM.MNRNOTE ---
Pt is going to discharge home.
--- NOTE | 2018-08-25 14:13 | P.DS_ITS ---
History of Present Illness Date Patient Seen: 08/22/18 Chief complaint: seen er 08/21/redness to arm increased Narrative: Written by Rafael BRADLEY: Griselda Helton is a 78-year-old female patient with a history that is significant for rheumatoid arthritis on immunosuppressive therapy, hypertension, atrial fibrillation, gastroesophageal reflux and levoscoliosis of the thoracic lumbar spine who presents to the ER today for worsening redness and infection in the right arm. The patient was evaluated in the emergency department yesterday following her dog scraping or arm 4 days previously and developing cellulitis. The patient was discharged to home on Bactrim. Over night the patient reports worsening redness and swelling however denies significant pain. The patient is currently on immunosuppressive therapy with prednisone, methotrexate and hydro chloroquine for her rheumatoid arthritis. She denies any systemic symptoms of fevers or chills headaches or dizziness, chest pain or palpitations though she does have atrial fibrillation. She denies shortness of breath but does endorse an occasional cough but no wheezing. She denies abdominal pain and has no nausea vomiting but describes having a poor appetite. She denies history of diarrhea or constipation though she did have a loose stool earlier today. She has osteoarthritis and rheumatoid arthritis with some significant hand deformities. On arrival in the ER the patient is found to be afebrile a temperature 97.5?, heart rate of 82, pressure of 96/52 with respirations of 14 100% on room air. During the stay the patient developed atrial fibrillation with rapid ventricular rate at 140 for which he received Cardizem 10 mg with reduction in heart rate to 100 and blood pressure remaining approximately 100. On laboratory analysis patient has a white count of 25.7 with a normal H&H and platelets. She has an elevated procalcitonin of 3.35. The patient has received fluid bolus and started on clindamycin. She is admitted for cellulitis failing outpatient treatment. Discharge Providers Date of admission: 08/22/18 17:02 Discharge Date: 08/25/18 Primary care physician: Aishwarya Richard MD Consults: 08/22/18 18:02 Consult to Dietitian, Adult Routine Comment: Reason For Exam: decreased po intake 08/22/18 20:27 Consult to Discharge Planning Routine Comment: Consult to Occupational Therapy Evaluate & Treat Comment: Rheumatoid arthritis, bilateral hand deformity Physician Instructions: Evaluate and treat 08/24/18 12:44 Consult to Physical Therapy Evaluate & Treat Comment: Physician Instructions: Evaluate and Treat 08/24/18 13:04 Consult to Wound Care Routine Comment: right FA wound/skin tear, hx RA on immunosupp Consulting Provider: [facility] Discharge provider: Kelsy Bazan DO Summary Discharge Diagnosis: 1. Sepsis, present on admission. Resolved. 2. Acute right arm cellulitis with wound secondary to dog scrape, present on admission. Active. 3. Paroxysmal atrial fibrillation with RVR, chronic, present on admission. A ctive. 4. Acute kidney injury, secondary to sepsis, present on exam. Resolved. 5. Hypertension, chronic, present on admission. Stable. 6. Rheumatoid arthritis, chronic, present on admission. Stable. Hospital Course: Griselda Helton is a 78-year-old female patient with a past medical history significant for severe rheumatoid arthritis on immunosuppressive therapy, hypertension, paroxysmal atrial fibrillation, gastroesophageal reflux and levo scoliosis of the thoracic lumbar spine who presented to the ED worsening redness and cellulitis of the right arm. 1. Sepsis, present on admission. Resolved. -Sepsis criteria met including: Hypotensive (BP 96/52), Leukocyctosis (WBC 25.7), procalcitonin 3.35 with source right arm cellulitis and wound. LA elevated at 2.4 and trended until under 2.0. -Early goal directed therapy met including: IV fluid resuscitation and broad spectrum antibiotics. 2. Acute right arm cellulitis with wound secondary to dog scrape, present on admission. Active. -Patient sustained soft tissue injury to the right arm by dog scraping her x 4 days ago. She was seen in ER and discharged on Keflex and failed with cellulitis extending past magins. -Continued clindamycin 600 mg every 6 hours and discharged on clidamycin 600 mg 3 times daily to complete 7 days total. Encouraged patient to continue to probiotics i.e. yogurt or kefir for next several weeks. -Received 2 L normal saline boluses in ED. Discontinued IV fluids as patient is adequately hydrated. -Initial WBC 25.7 an procalcitonin 3.35. Continue to trend down WBC 14.4 (on glucocorticoid) and PCT 0.28. Continue to monitor CBC and procalcitonin daily. -Wound Care was consulted and plan to have patient continue to follow up outpatient until wound completely healed. 3. Paroxysmal atrial fibrillation with RVR, chronic, present on admission. Active. -Patient with history of atrial fibrillation and developed atrial fibrillation with RVR in the ED with HR 140s. -Received diltiazem 10 mg IV x 1 with reduction of HR to 100s then spontaneously converted. -Discontinued felodipine. Started diltiazem 30 mg every 6 hours. -Discontinued aspirin. Started Xarelto 20 mg daily and switched to Pradaxa 150 mg twice daily as this is covered by her insurance. Patient is high fall risk (benefits outweigh risk) and informed her to use her walker at all times and if she were to fall be assessed by a medical professional immediately. 4. Acute kidney injury, secondary to sepsis, present on exam. Resolved. -Initial Cr 1.20. Baseline 0.6. -Avoid nephrotoxin agents. -Continue IV fluids with normal saline at 100 mL/hr. 5. Hypertension, chronic, present on admission. Stable. -Patient was hypotensive with SBP 90s upon arrival with minimal improvement after fluid bolusing. -Held losartan throughout hospitalization. Ordered to resume at time of discharge, however, with patient's blood pressure within normal limits on diltiazem CD 100 20 mg only will plan to have the charge nurse call the patient and instruct her not to take this medication until she follows up with her PCP. 6. Rheumatoid arthritis, chronic, present on admission. Stable. -Rheumatoid arthritis bilateral hands with resulting in significant joint deformities. -Instructed patient to restart hydrochloroquine and methotrexate at time of discharge. -Continued prednisone 5 mg daily. -Continued tramadol. Status at Discharge Functional status at discharge: uses cane/walker Overall status at discharge: patient is progressing back to baseline Exam Vital Signs (past 8 hours): - 08/25/18 08:15 08/25/18 11:15 Temperature 98.0 F 98.9 F Pulse Rate 86 92 H Respiratory Rate 16 16 Blood Pressure 132/77 129/70 Pulse Oximetry 94 95 Oxygen Delivery Method Room Air Oxygen Flow Rate 0 Narrative Exam Narrative: General: Elderly female sitting in bed and in no acute distress, well- developed, well-nourished, appropriately interactive. HEENT: Normocephalic, atraumatic. External ears without defect. Pupils equal, round, and reactive to light. Anicteric sclerae, moist conjunctivae, and no lid lag. Neck: Supple with full range of motion. No lymphadenopathy or thyromegaly. Cardiovascular: Irregularly irregular without murmurs, rubs, or gallops appreci ated. Pulmonary: Clear to auscultation bilaterally without crackles, wheezes, or rhonchi. Normal respiratory effort with no use of accessory muscles. Abdomen: Soft, scaphoid, bowel sounds present, nontender, nondistended. No hepatosplenomegaly or masses appreciated. Extremities: No clubbing, cyanosis, or edema. Significant swan neck deformity due to RA of both hands bilaterally R>L. Wound on right forearm 3 cm x 3 cm with granulation tissue now with dressing in place C/D/I with cellulitis that is receding margins Skin: Normal temperature, turgor, and texture; no ulcers, or subcutaneous nodul es appreciated. Neurological: Cranial nerves grossly intact. Psychiatric: Normal mood and affect. Alert and oriented to person and place. Mild cognitive impairment vs. early dementia with short-term memory recall deficit. Objective Labs Result Diagrams: 08/25/18 05:15 08/25/18 05:15 Labs: Laboratory Results - last 24 hr 08/25/18 08/25/18 08/25/18 05:15 05:15 05:15 WBC 14.4 H RBC 3.54 L Hgb 10.4 L Hct 32.1 L MCV 90.7 MCH 29.5 MCHC 32.5 RDW 15.1 H Plt Count 304 Neut % (Auto) 81.9 H Lymph % (Auto) 6.9 L Wilkinson % (Auto) 8.5 Eos % (Auto) 2.1 Baso % (Auto) 0.6 Neut # (Auto) 22717 H Lymph # (Auto) 1000 L Wilkinson # (Auto) 1200 H Eos # (Auto) 300 Baso # (Auto) 100 Sodium 134 L Potassium 3.8 Chloride 102 Carbon Dioxide 26 BUN 12 Creatinine 0.40 L Estimated GFR > 60.0 BUN/Creatinine Ratio 30.0 H Glucose 97 Calcium 7.5 L Magnesium 2.5 H Total Bilirubin 0.4 AST 28 ALT 33 Alkaline Phosphatase 95 Total Protein 5.6 L Albumin 3.0 L Globulin 2.6 Albumin/Globulin Ratio 1.2 Procalcitonin 0.28 TSH Free T4 08/25/18 05:15 WBC RBC Hgb Hct MCV MCH MCHC RDW Plt Count Neut % (Auto) Lymph % (Auto) Wilkinson % (Auto) Eos % (Auto) Baso % (Auto) Neut # (Auto) Lymph # (Auto) Wilkinson # (Auto) Eos # (Auto) Baso # (Auto) Sodium Potassium Chloride Carbon Dioxide BUN Creatinine Estimated GFR BUN/Creatinine Ratio Glucose Calcium Magnesium Total Bilirubin AST ALT Alkaline Phosphatase Total Protein Albumin Globulin Albumin/Globulin Ratio Procalcitonin TSH 0.37 L Free T4 1.94 Discharge Plan Discharge Plan Patient Disposition: Home Discharge comment: You are being discharged home. Please [facility] with [facility] with Dr. Hendricks at your scheduled appointment. Please follow-up with your PCP, Dr. Richard, at your scheduled appointment. Your felodipine has been discontinued. You were started on diltiazem CD 120 mg daily to help control your heart rate related to your atrial fibrillation or irregular heart rhythm. You were also started on Pradaxa 150 mg twice daily which is a potent blood thinner to protect you against blood clots. Please use your cane/walker at all times. You are at a high bleeding risk should you fall again. Please see a medical professional immediately if you fall. You should not take NSAIDs while on this, therefore, your celecoxib has been stopped. If you need more medication for pain please discuss this with your PCP. Discharge Med Rec/Prescriptions Prescriptions: New diltiazem HCl 120 mg Capsule,Extended Release 24hr 120 mg PO DAILY Qty: 30 RF: 0 Pradaxa 150 mg capsule 150 mg PO BID Qty: 60 RF: 0 clindamycin HCl 300 mg capsule 600 mg PO TID Qty: 13 RF: 0 Continued folic acid 1 MG tablet 1 mg PO BID Qty: 0 RF: 0 prednisone 5 MG tablet 5 mg PO DAILY Qty: 0 RF: 0 tramadol 50 MG tablet 50 mg PO Q4HP PRN (Reason: pain) Qty: 0 RF: 0 ranitidine HCl 150 MG tablet 150 mg PO BEDTIME Qty: 0 RF: 0 losartan 50 mg Tablet 100 mg PO DAILY RF: 0 citalopram 20 mg Tablet 20 mg PO DAILY RF: 0 methotrexate sodium 2.5 mg Tablet 15 mg PO TH RF: 0 hydroxychloroquine 200 mg Tablet 200 mg PO DAILY RF: 0 clobetasol 0.05 % Solution 1 applic TOPICAL DIRECTED RF: 0 donepezil 10 mg Tablet 10 mg PO BEDTIME RF: 0 omeprazole 20 mg Capsule,Delayed Release(Dr/Ec) 20 mg PO DAILY RF: 0 cyanocobalamin (vitamin B-12) [Vitamin B-12] 1,000 mcg Tablet 1,000 mcg PO DAILY RF: 0 ferrous sulfate 325 mg (65 mg iron) Tablet 325 mg PO DAILY RF: 0 cholecalciferol (vitamin D3) [Vitamin D3] 1,000 unit Tablet 1,000 unit PO DAILY RF: 0 One-A-Day Menopause Formula 400-60 mcg-mg Tablet 1 tab PO DAILY RF: 0 CoQ-10 400 mg 400 mg PO DAILY RF: 0 Discontinued felodipine 10 mg Tablet Extended Release 24 Hr 10 mg PO DAILY RF: 0 celecoxib 100 mg Capsule 100 mg PO DAILY RF: 0 cephalexin [Keflex] 500 mg capsule 500 mg PO [id number] RF: 0 Follow up/Referrals: Darci Hendricks MD [Physician] - 3-5 Days (Follow-up scheduled for August 30 at 8:30am at [address] [place] [address].) Aishwarya Richard MD [Primary Care Provider] - 09/01/18 11:05 am (09/01 @ 11:05 check in for appointment with dr tiffanie richard @ [facility] ) Provider Discharge Instructions Diet: Diet as Tolerated, Low-fat, Low-sodium and Low-cholesterol Activity: Activity as tolerated with 4 wheeled walker. Recommend continued outpatient physical therapy. Visit Report/Discharge Packet Instructions: Atrial Fibrillation, How To Perform RICE (Rest, Ice, Compress, Elevate), Dabigatran Discharge Data Primary Care Provider: Aishwarya Richard Attending Provider: Kelsy Bazan Admit Date/Time: 08/22/18 17:02 Discharges patient from system. Discharge Date/Time: 08/25/18 15:00 Quality VTE Deep Vein Thrombosis/Pulmonary Embolism Present on Admission: No
--- NOTE | 2018-08-25 15:57 | CM.DPC ---
DCP: continued: case received and discussed this morning in Team Rounds. Dr. Bazan noted that pt was eager to go home but that she still needed to be seen by the [facility] team in consult. Pt did see pt and cleared her for home once medically stable for same. Spoke earlier today with Andreina Welsh/wound care/vern RN at the [facility]. She noted that she had seen the pt yesterday and discussed her findings and recommendations with Dr. Mckinney who agreed with the POC as stated. She noted the consult was in the Patient Notes where RN and CM notes are found and perhaps Dr. Bazan had not realized they would be there. She quickly alerted Dr. Bazan to same Dr. Bazan did then meet with pt and ok'd her for d/c home today with PCP followup as well as [facility] followup. (Pt is noted to carry dx of Rhuematoid Arthritis and on on methotrexate and is aware of the need for close followup re her wound).
== END 2018-08-25 15:00 | disposition home or self-care (01) | DRG 872 ==
LOC: ED 17:02 → AC 17:02
PROVIDERS: Nurse Practitioner Adult Health; Admitting Provider Internal Medicine; Emergency Provider Emergency Medicine; PCP Internal Medicine; Visit Provider Internal Medicine
DX: A41.9 Sepsis, unspecified organism (principal); L03.113 Cellulitis of right upper limb; Z68.1 Body mass index [BMI] 19.9 or less, adult; N17.9 Acute kidney failure, unspecified; R63.6 Underweight; M06.9 Rheumatoid arthritis, unspecified; Z79.899 Other long term (current) drug therapy; I48.0 Paroxysmal atrial fibrillation; R65.20 Severe sepsis without septic shock; I10 Essential (primary) hypertension; K21.9 Gastro-esophageal reflux disease without esophagitis; Z87.891 Personal history of nicotine dependence
CPT/HCPCS: 36415; 36591; 71045; 80048; 80053; 82550; 83605; 83735; 84145; 84439; 84443; 84484; 85025; 87040; 93005; 93010; 94762; 96361; 96365; 96366; 96375; 97116; 97161; 97165; 97530; 97535; 99282; 99284; 99285; J3480

== ENCOUNTER 2018-08-26 18:28 | Emergency (ER) | payer OTHER, SELFPAY ==
[2018-08-22 17:52] VITALS: BMI 17.6
[2018-08-26 18:42] VITALS: BP 150/108; PULSE 72; RESP 16; TEMP 36.4; O2SAT 100; BMI 19.5
[2018-08-26 19:24] LABS: Bilirubin Urine UA NEGATIVE (NEGATIVE); Color Urine UA RED; Glucose Urine UA NEGATIVE (Negative); Ketones Urine UA NEGATIVE (NEGATIVE); Leukocyte Esterase Urine UA NEGATIVE (NEGATIVE); Nitrite Urine UA NEGATIVE (Negative); Protein Urine UA 2+ (Negative); Specific Gravity Urine UA >=1.030 (1.000-1.035); Urobilinogen Urine UA 0.2 E.U./dL (0.2); pH Urine UA 5.5 (4.5-8.0)
[2018-08-26 19:25] LABS: Appearance Urine UA OTHER; Occult Blood Urine UA 4+ (Negative)
[2018-08-26 19:26] LABS: Amorphous Sediment Urine 1+; Bacteria Urine Occasional (0-1); RBC Urine >100/HPF (0-5/HPF); Squamous Epithelial Cell Urine 0-1 /HPF (0-5/HPF); WBC Urine 1-5/HPF (0-5/HPF)
[2018-08-26 19:27] LABS: Culture Indicated Urine Specimen Cultured
[2018-08-26 20:50] LABS: INR 1.3 (0.9-1.3); Prothrombin Time 15.4 SECONDS (10.1-12.7)
[2018-08-26 20:52] LABS: PTT Partial Thromboplastin Tim 43 SECONDS (26.4-36.2)
[2018-08-26 20:55] LABS: BUN Creatinine Ratio 36.7 (6-22); Blood Urea Nitrogen 22 mg/dL (7-17); Calcium 8.7 mg/dL (8.4-10.2); Carbon Dioxide 29 mmol/L (22-32); Chloride 91 mmol/L (98-107); Estimated Glomerular Filt Rate > 60.0 mL/min (>60); Glucose 82 mg/dL (80-110); HEMOLYSIS < 15 (0-50); Potassium 3.8 mmol/L (3.4-5.1); Sodium 130 mmol/L (137-145)
[2018-08-26 21:17] LABS: Add Manual Diff / Slide Review YES; Mean Corpuscular HGB Conc 34.3 % (30-36); Mean Corpuscular Hemoglobin 30.3 PG (26-34); Mean Corpuscular Volume 88.5 fL (80-100); Platelet Count 441 X10^3/uL (150-400); Red Blood Cell Count 3.96 X10^6/uL (4.0-5.2); Red Cell Distribution Width 15.2 % (11.6-14.8); White Blood Cell Count 12.2 X10^3/uL (4.5-11.0)
[2018-08-26 21:20] LABS: Neutrophils Absolute Manual 9394 /uL (3000-5900); Total Cells Counted 100
[2018-08-26 21:21] LABS: RBC Morphology Normal Morphology
--- NOTE | 2018-08-26 22:05 | ED.FEMALEGU ---
HPI - Female Genitourinary General Chief complaint: Urogenital-Female Stated complaint: FOLLOW UP Time Seen by Provider: 08/26/18 19:48 Source: patient Mode of arrival: ambulatory Limitations: no limitations History of Present Illness HPI Narrative: 78-year-old female former smoker with recent hospitalization for cellulitis and new onset AFib presents with a chief complaint of pink urine earlier today which became a bit darker this afternoon but has since cleared. She denies any pain nor fever or chills. She was just started on Pradaxa for AFib and has had 2 doses. She denies any bloody sputum, hematemesis or, blood in her stool. she denies chest pain or shortness of breath. She is not dizzy nor weak or lightheaded. MD Complaint: other Onset (ago): hour(s) Severity: mild Duration: now resolved Exacerbating factors: none Patient : No Associated symptoms: denies other symptoms Related Data Home Medications Medication Instructions Recorded Confirmed folic acid 1 mg PO BID #0 08/03/09 08/22/18 prednisone 5 mg PO DAILY #0 09/17/16 08/22/18 tramadol 50 mg PO Q4HP PRN #0 09/17/16 08/22/18 ranitidine HCl 150 mg PO BEDTIME #0 01/09/17 08/22/18 CoQ-10 400 mg PO DAILY 08/22/18 08/22/18 One-A-Day Menopause Formula 1 tab PO DAILY 08/22/18 08/22/18 cholecalciferol (vitamin D3) 1,000 unit PO DAILY 08/22/18 08/22/18 [Vitamin D3] citalopram 20 mg PO DAILY 08/22/18 08/22/18 clobetasol 1 applic TOPICAL DIRECTED 08/22/18 08/22/18 cyanocobalamin (vitamin B-12) 1,000 mcg PO DAILY 08/22/18 08/22/18 [Vitamin B-12] donepezil 10 mg PO BEDTIME 08/22/18 08/22/18 ferrous sulfate 325 mg PO DAILY 08/22/18 08/22/18 hydroxychloroquine 200 mg PO DAILY 08/22/18 08/22/18 losartan 100 mg PO DAILY 08/22/18 08/22/18 methotrexate sodium 15 mg PO TH 08/22/18 08/22/18 omeprazole 20 mg PO DAILY 08/22/18 08/22/18 Previous Rx's Medication Instructions Recorded clindamycin HCl 600 mg PO TID #13 cap 08/25/18 dabigatran etexilate [Pradaxa] 150 mg PO BID #60 cap 08/25/18 diltiazem HCl 120 mg PO DAILY #30 cap 08/25/18 Allergies Allergy/AdvReac Type Severity Reaction Status Date / Time lisinopril [LISINOPRIL] AdvReac Unknown COUGH Verified 08/21/18 08:03 Review of Systems Constitutional Denies chills, Denies fever(s), Denies lethargy and Denies weakness Eyes Denies change in vision, Denies eye discharge, Denies irritation and Denies loss of vision ENT Ears, Nose, Mouth, and Throat: Denies change in voice, Denies neck pain and Denies sore throat Cardiovascular Denies chest pain, Denies irregular heart rhythm, Denies lightheadedness, Denies palpitations, Denies dyspnea, Denies dyspnea on exertion and Denies orthopnea Respiratory Denies cough, Denies dyspnea, Denies dyspnea on exertion and Denies wheezing Gastrointestinal Gastrointestinal: Denies abdominal pain, Denies change in bowel habits, Denies diarrhea, Denies nausea and Denies vomiting Genitourinary Reports hematuria, Denies flank pain, Denies urinary incontinence and Denies urinary urgency Musculoskeletal Denies neck pain Integumentary/Breasts Denies pruritus, Denies erythema, Denies rash and Denies wounds Neurologic Denies confusion, Denies loss of vision and Denies weakness Psychiatric Denies anxiety, Denies confusion, Denies depression, Denies homicidal ideation and Denies suicidal ideation Endocrine Denies palpitations Hematologic/Lymphatic Denies easy bruising Allergic/Immunologic Denies wheezing [facility] Medical History Atrial fibrillation (Acute) Gastroesophageal reflux (Acute) Hypertension (Acute) Osteoarthritis (Acute) Rheumatoid arthritis (Acute) Scoliosis (Acute) Surgical History History of spinal surgery (Acute) Social History household members: spouse and children Smoking Status: Former smoker alcohol intake: current Social History household members: spouse and children Smoking Status: Former smoker alcohol intake: current Exam Narrative Exam Narrative: GEN: AOx3 and in mild distress, 78-year-old female appears stated age EYES: Pupils are equal, round, and reactive to light and accommodation. Extraoccular muscles are intact bilaterally. There is no subconjunctival hemorrhage or exudate. CHEST: Lungs are clear to auscultation bilaterally and free of wheezes, rales, or rhonchi. Heart rate is regular rhythm, there are no murmurs, clicks, rubs, or gallops. There is no chest wall tenderness. ABD: Abdomen is soft and nontender. There is no guarding or rebound. Bowel sounds are normal in all 4 quadrants. There is no mass or organomegaly. EXT: Full painless ROM of all extremities with no loss of sensation or strength. SKIN: Warm, pink, and dry. No erythema or rash Initial Vital Signs Initial Vital Signs: Vital Signs Temperature 97.5 F L 08/26/18 18:42 Pulse Rate 72 08/26/18 18:42 Respiratory Rate 16 08/26/18 18:42 Blood Pressure 150/108 H 08/26/18 18:42 Pulse Oximetry 100 08/26/18 18:42 Course Orders Ordered: ED Orders 08/26/18 19:15 Urinalysis and Microscopic Stat Urine Culture Stat 08/26/18 20:35 Basic Metabolic Panel Stat Complete Blood Count AUTO DIFF Stat PT [Prothrombin Time INR] Stat Partial Thromboplastin Time Stat Reevaluation(s) Reevaluation #1: patient has had two episodes of urinating since providing her initial sample which are no longer pink Consultations Consultation #1: call to flight control tower operator Hem/Onc (Dr. Velez) to discuss best course of action and we agree that with normal labs and no evidence of ongoing bleeding that we can allow her to go home with good return precautions, holding DOAC until she is seen by her PCP later in the week. Vital Signs - 8 hr 08/26/18 18:42 08/26/18 22:40 Temperature 97.5 F L Pulse Rate 72 76 Respiratory Rate 16 19 Blood Pressure 150/108 H Blood Pressure [Left Arm] 154/89 H Pulse Oximetry 100 100 MDM - Female Genitourinary Lab Data Result diagrams: 08/26/18 20:35 08/26/18 20:35 Lab Results 08/26/18 08/26/18 08/26/18 Range/Units 19:15 20:35 20:35 WBC 12.2 H (4.5-11.0) X10^3/uL RBC 3.96 L (4.0-5.2) X10^6/uL Hgb 12.0 (12.0-16.0) g/dL Hct 35.0 L (36-46) % MCV 88.5 (80-100) fL MCH 30.3 (26-34) PG MCHC 34.3 (30-36) % RDW 15.2 H (11.6-14.8) % Plt Count 441 H (150-400) X10^3/uL Neut % (Auto) Not Reportable Lymph % (Auto) Not Reportable [place] % (Auto) Not Reportable Eos % (Auto) Not Reportable Baso % (Auto) Not Reportable Lymph # (Auto) Not Reportable [place] # (Auto) Not Reportable Baso # (Auto) Not Reportable Total Counted 100 Seg Neutrophils % 62.0 (38-70) % Band Neutrophils % 15.0 H (3-7) % Lymphocytes % (Manual) 16.0 L (25-45) % Monocytes % (Manual) 6.0 (2-11) % Eosinophils % (Manual) 1.0 L (2-4) % Neutrophils # (Manual) 9394 H (6249-7382) /uL RBC Morphology Normal morphology PT 15.4 H (10.1-12.7) SECONDS INR 1.3 (0.9-1.3) APTT 43 H (26.4-36.2) SECONDS Sodium (137-145) mmol/L Potassium (3.4-5.1) mmol/L Chloride (98-107) mmol/L Carbon Dioxide (22-32) mmol/L BUN (7-17) mg/dL Creatinine (0.52-1.04) mg/dL Estimated GFR (>60) mL/min BUN/Creatinine Ratio (6-22) Glucose (80-110) mg/dL Calcium (8.4-10.2) mg/dL Urine Color Red Urine Appearance Other Urine pH 5.5 (4.5-8.0) Ur Specific [place] >=1.030 H (1.000-1.035) Urine Protein 2+ H (Negative) Urine Glucose (UA) Negative (Negative) g/dL Urine Ketones Negative (NEGATIVE) Urine Occult Blood 4+ H (Negative) Urine Nitrate Negative (Negative) Urine Bilirubin Negative (NEGATIVE) Urine Urobilinogen 0.2 (0.2) E.U./dL Ur Leukocyte Esterase Negative (NEGATIVE) Urine RBC >100/hpf H (0-5/HPF) Urine WBC 1-5/hpf (0-5/HPF) Ur Squamous Epith Cells 0-1 /hpf (0-5/HPF) Amorphous Sediment 1+ Urine Bacteria Occasional (0-1) (None) Ur Culture Indicated? Specimen cultured 08/26/18 Range/Units 20:35 WBC (4.5-11.0) X10^3/uL RBC (4.0-5.2) X10^6/uL Hgb (12.0-16.0) g/dL Hct (36-46) % MCV (80-100) fL MCH (26-34) PG MCHC (30-36) % RDW (11.6-14.8) % Plt Count (150-400) X10^3/uL Neut % (Auto) Lymph % (Auto) [place] % (Auto) Eos % (Auto) Baso % (Auto) Lymph # (Auto) [place] # (Auto) Baso # (Auto) Total Counted Seg Neutrophils % (38-70) % Band Neutrophils % (3-7) % Lymphocytes % (Manual) (25-45) % Monocytes % (Manual) (2-11) % Eosinophils % (Manual) (2-4) % Neutrophils # (Manual) (3780-4221) /uL RBC Morphology PT (10.1-12.7) SECONDS INR (0.9-1.3) APTT (26.4-36.2) SECONDS Sodium 130 L (137-145) mmol/L Potassium 3.8 (3.4-5.1) mmol/L Chloride 91 L (98-107) mmol/L Carbon Dioxide 29 (22-32) mmol/L BUN 22 H (7-17) mg/dL Creatinine 0.60 (0.52-1.04) mg/dL Estimated GFR > 60.0 (>60) mL/min BUN/Creatinine Ratio 36.7 H (6-22) Glucose 82 (80-110) mg/dL Calcium 8.7 (8.4-10.2) mg/dL Urine Color Urine Appearance Urine pH (4.5-8.0) Ur Specific [place] (1.000-1.035) Urine Protein (Negative) Urine Glucose (UA) (Negative) g/dL Urine Ketones (NEGATIVE) Urine Occult Blood (Negative) Urine Nitrate (Negative) Urine Bilirubin (NEGATIVE) Urine Urobilinogen (0.2) E.U./dL Ur Leukocyte Esterase (NEGATIVE) Urine RBC (0-5/HPF) Urine WBC (0-5/HPF) Ur Squamous Epith Cells (0-5/HPF) Amorphous Sediment Urine Bacteria (None) Ur Culture Indicated? MDM Narrative Medical decision making narrative: I discussed options with this patient including my conversation with oncology. After discussing pros and cons restarting Pradaxa versus a new DOAC versus holding any anticoagulation for now she would prefer to wait until follow up. Discharge Plan Departure Patient Disposition: Home Clinical Impression: Benign hematuria Discharge Date/Time: 08/26/18 22:49 Interventions: ED Discharge Assessment Last Done: 08/26/18 22:48 Instructions: DI for Hematuria Activity Restrictions/Additional Instructions: *You have been diagnosed with [ hematuria on anticoagulation ] *What to do: *Take medications as directed: STOP PRADAXA *Follow up with your primary care provider on 09/01 as planned. However, let them know you were seen in the Emergency Department and that we ask that you be seen in follow up *Return to ER if you should have any new, worsening or concerning symptoms such as recurrent bleeding, shortness of breath, or other bothersome symptoms Prescriptions: No Action folic acid 1 MG tablet 1 mg PO BID Qty: 0 RF: 0 prednisone 5 MG tablet 5 mg PO DAILY Qty: 0 RF: 0 tramadol 50 MG tablet 50 mg PO Q4HP PRN (Reason: pain) Qty: 0 RF: 0 ranitidine HCl 150 MG tablet 150 mg PO BEDTIME Qty: 0 RF: 0 losartan 50 mg Tablet 100 mg PO DAILY RF: 0 citalopram 20 mg Tablet 20 mg PO DAILY RF: 0 methotrexate sodium 2.5 mg Tablet 15 mg PO TH RF: 0 hydroxychloroquine 200 mg Tablet 200 mg PO DAILY RF: 0 clobetasol 0.05 % Solution 1 applic TOPICAL DIRECTED RF: 0 donepezil 10 mg Tablet 10 mg PO BEDTIME RF: 0 omeprazole 20 mg Capsule,Delayed Release(Dr/Ec) 20 mg PO DAILY RF: 0 cyanocobalamin (vitamin B-12) [Vitamin B-12] 1,000 mcg Tablet 1,000 mcg PO DAILY RF: 0 ferrous sulfate 325 mg (65 mg iron) Tablet 325 mg PO DAILY RF: 0 cholecalciferol (vitamin D3) [Vitamin D3] 1,000 unit Tablet 1,000 unit PO DAILY RF: 0 One-A-Day Menopause Formula 400-60 mcg-mg Tablet 1 tab PO DAILY RF: 0 CoQ-10 400 mg 400 mg PO DAILY RF: 0 diltiazem HCl 120 mg Capsule,Extended Release 24hr 120 mg PO DAILY Qty: 30 RF: 0 Pradaxa 150 mg capsule 150 mg PO BID Qty: 60 RF: 0 clindamycin HCl 300 mg capsule 600 mg PO TID Qty: 13 RF: 0 Referrals: Aishwarya Richard MD [Primary Care Provider] -
[2018-08-26 22:40] VITALS: BP 154/89; PULSE 76; RESP 19; O2SAT 100
== END 2018-08-26 22:49 | disposition home or self-care (01) ==
PROVIDERS: Emergency Provider Emergency Medicine; PCP Internal Medicine
DX: N02.9 Recurrent and persistent hematuria with unspecified morphologic changes (principal)
CPT/HCPCS: 36591; 80048; 81001; 85025; 85610; 85730; 87086; 99282; 99283

== ENCOUNTER → 2018-08-30 09:04 | Outpatient (CLI) | payer OTHER, SELFPAY ==
[2018-08-22 17:52] VITALS: BMI 17.6
== END ==
PROVIDERS: PCP Internal Medicine; Visit Provider Family Medicine
DX: S41.101A Unspecified open wound of right upper arm, initial encounter (principal)
CPT/HCPCS: 11042; 99214

== ENCOUNTER → 2018-09-06 09:03 | Outpatient (CLI) | payer OTHER, SELFPAY ==
[2018-08-22 17:52] VITALS: BMI 17.6
== END ==
PROVIDERS: PCP Internal Medicine; Visit Provider Family Medicine
DX: S41.101A Unspecified open wound of right upper arm, initial encounter (principal)
CPT/HCPCS: 11042

== ENCOUNTER → 2018-09-13 09:20 | Outpatient (CLI) | payer OTHER, SELFPAY ==
[2018-08-22 17:52] VITALS: BMI 17.6
== END ==
PROVIDERS: PCP Internal Medicine; Visit Provider Family Medicine
DX: S41.101A Unspecified open wound of right upper arm, initial encounter (principal); L92.8 Other granulomatous disorders of the skin and subcutaneous tissue
CPT/HCPCS: 17250

== ENCOUNTER → 2018-09-16 16:22 | Outpatient (CLI) | payer OTHER, SELFPAY ==
[2018-08-22 17:52] VITALS: BMI 17.6
[2018-09-16 18:02] LABS: Add Manual Diff / Slide Review NO; Basophils Absolute Auto 100 /uL (0-100); Basophils Percent Auto 0.9 % (0-2); Eosinophils Absolute Auto 100 /uL (0-450); Eosinophils Percent Auto 0.6 % (2-4); Hematocrit 39.4 % (36-46); Hemoglobin 13.1 g/dL (12.0-16.0); Lymphocytes Absolute Auto 1000 /uL (1100-4500); Lymphocytes Percent Auto 11.1 % (25-40); Mean Corpuscular HGB Conc 33.3 % (30-36); Mean Corpuscular Hemoglobin 29.8 PG (26-34); Mean Corpuscular Volume 89.4 fL (80-100); Monocytes Absolute Auto 800 /uL (0-900); Monocytes Percent Auto 9.1 % (3-14); Neutrophils Absolute Auto 7100 /uL (1500-7000); Neutrophils Percent Auto 78.3 % (50-75); Platelet Count 337 X10^3/uL (150-400); Red Blood Cell Count 4.41 X10^6/uL (4.0-5.2); Red Cell Distribution Width 15.4 % (11.6-14.8); White Blood Cell Count 9.1 X10^3/uL (4.5-11.0)
[2018-09-16 18:25] LABS: Alanine Aminotransferase 34 IU/L (9-52); Albumin 4.1 g/dL (3.5-5.0); Albumin Globulin Ratio 1.7 (1.0-2.8); Alkaline Phosphatase 88 U/L (38-126); Aspartate Aminotransferase 29 IU/L (14-36); BUN Creatinine Ratio 35.7 (6-22); Bilirubin Total 0.7 mg/dL (0.2-1.3); Blood Urea Nitrogen 25 mg/dL (7-17); C-Reactive Protein Quant 0.5 mg/dL (<1.0); Calcium 9.7 mg/dL (8.4-10.2); Carbon Dioxide 28 mmol/L (22-32); Chloride 96 mmol/L (98-107); Estimated Glomerular Filt Rate > 60.0 mL/min (>60); Globulin 2.4 g/dL (1.7-4.1); Glucose 112 mg/dL (80-110); HEMOLYSIS < 15 (0-50); Potassium 4.4 mmol/L (3.4-5.1); Sodium 133 mmol/L (137-145); Total Protein 6.5 g/dL (6.3-8.2)
== END ==
PROVIDERS: Family Provider Internal Medicine; PCP Internal Medicine; Visit Provider Internal Medicine Rheumatology
DX: M05.9 Rheumatoid arthritis with rheumatoid factor, unspecified (principal); Z79.899 Other long term (current) drug therapy
CPT/HCPCS: 36415; 80053; 85025; 86140

== ENCOUNTER → 2018-09-20 09:05 | Outpatient (CLI) | payer OTHER, SELFPAY ==
[2018-08-22 17:52] VITALS: BMI 17.6
== END ==
PROVIDERS: Family Provider Internal Medicine; PCP Internal Medicine; Visit Provider Family Medicine
DX: S41.101D Unspecified open wound of right upper arm, subsequent encounter (principal)
CPT/HCPCS: 99213

== ENCOUNTER → 2018-09-27 09:19 | Outpatient (CLI) | payer OTHER, SELFPAY ==
[2018-08-22 17:52] VITALS: BMI 17.6
== END ==
PROVIDERS: Family Provider Internal Medicine; PCP Internal Medicine; Visit Provider Family Medicine
DX: S41.101A Unspecified open wound of right upper arm, initial encounter (principal)
CPT/HCPCS: 11042

== ENCOUNTER → 2018-10-11 09:23 | Outpatient (CLI) | payer OTHER, SELFPAY ==
[2018-08-22 17:52] VITALS: BMI 17.6
== END ==
PROVIDERS: Family Provider Internal Medicine; PCP Internal Medicine; Visit Provider Family Medicine
DX: Z48.817 Encounter for surgical aftercare following surgery on the skin and subcutaneous tissue (principal)
CPT/HCPCS: 99212

== ENCOUNTER 2018-11-14 15:21 | Emergency (ER) | payer OTHER, SELFPAY ==
[2018-08-22 17:52] VITALS: BMI 17.6
[2018-11-14 15:32] VITALS: BP 117/67; PULSE 83; RESP 13; TEMP 36.6; O2SAT 98
[2018-11-14 15:44] LABS: Add Manual Diff / Slide Review NO; Basophils Absolute Auto 0 /uL (0-100); Basophils Percent Auto 0.3 % (0-2); Eosinophils Absolute Auto 0 /uL (0-450); Eosinophils Percent Auto 0.1 % (2-4); Hematocrit 40.2 % (36-46); Hemoglobin 13.3 g/dL (12.0-16.0); Lymphocytes Absolute Auto 1100 /uL (1100-4500); Mean Corpuscular Hemoglobin 28.8 PG (26-34); Mean Corpuscular Volume 87.4 fL (80-100); Monocytes Absolute Auto 1500 /uL (0-900); Neutrophils Absolute Auto 12600 /uL (1500-7000); Neutrophils Percent Auto 82.6 % (50-75); Platelet Count 363 X10^3/uL (150-400); Red Cell Distribution Width 16.5 % (11.6-14.8); White Blood Cell Count 15.3 X10^3/uL (4.5-11.0)
[2018-11-14 15:57] LABS: Alanine Aminotransferase 21 IU/L (9-52); Albumin 4.3 g/dL (3.5-5.0); Albumin Globulin Ratio 1.3 (1.0-2.8); Alkaline Phosphatase 100 U/L (38-126); Aspartate Aminotransferase 34 IU/L (14-36); BUN Creatinine Ratio 39.2 (6-22); Bilirubin Total 0.7 mg/dL (0.2-1.3); Blood Urea Nitrogen 51 mg/dL (7-17); Calcium 9.9 mg/dL (8.4-10.2); Carbon Dioxide 29 mmol/L (22-32); Chloride 92 mmol/L (98-107); Creatine Kinase 32 U/L (30-135); Estimated Glomerular Filt Rate 39.7 mL/min (>60); Globulin 3.3 g/dL (1.7-4.1); Glucose 103 mg/dL (80-110); HEMOLYSIS < 15 (0-50); Potassium 3.8 mmol/L (3.4-5.1); Sodium 135 mmol/L (137-145); Total Protein 7.6 g/dL (6.3-8.2)
[2018-11-14 16:09] LABS: Troponin I 0.019 ng/mL (0.01-0.034)
[2018-11-14 16:36] VITALS: BP 141/54; PULSE 75; RESP 18; O2SAT 99
--- NOTE | 2018-11-14 16:36 | ED.NEUROSD ---
HPI - Neuro Symptoms/Deficit General Chief Complaint: Neuro Symptoms/Deficit Stated Complaint: SENT BY GENARO RECINOS STROKE Time Seen by Provider: 11/14/18 15:38 Source: patient and family Mode of arrival: ambulatory Limitations: no limitations History of Present Illness HPI Narrative: Patient comes to the emergency department complaining of left arm weakness and left shoulder pain that started 2 days ago. Patient states she notes the pain and weakness shortly after waking up 2 mornings ago. Patient states that she has been having to help herself left her left arm because it is uncomfortable to move it. Patient states that she has a history of rheumatoid arthritis, which she thinks is in remission, though her thinks she is having a flare-up in the left wrist. Patient denies any prior injury to the left shoulder. She denies any recent injury to the left shoulder. No fevers or chills. No chest pain. No shortness of breath. No neck problems that the patient knows of. Patient is currently on methotrexate and low-dose prednisone 5 mg for her rheumatoid arthritis. Patient denies any weakness anywhere else on her body that is new. She denies any history of CVA or coronary artery disease. Patient states both her parents from MIs. Patient states that the weakness has been getting progressively better since it started 2 days ago, but improvements have been mild and slow. Related Data Home Medications Medication Instructions Recorded Confirmed folic acid 1 mg PO BID #0 08/03/09 11/14/18 prednisone 5 mg PO DAILY #0 09/17/16 11/14/18 tramadol 50 - 100 mg PO Q6H PRN #0 09/17/16 11/14/18 ranitidine HCl 150 mg PO BEDTIME #0 01/09/17 11/14/18 One-A-Day Menopause Formula 1 tab PO DAILY 08/22/18 11/14/18 citalopram 20 mg PO DAILY 08/22/18 11/14/18 cyanocobalamin (vitamin B-12) 1,000 mcg PO DAILY 08/22/18 11/14/18 [Vitamin B-12] hydroxychloroquine 200 mg PO DAILY 08/22/18 11/14/18 losartan 50 mg PO DAILY 08/22/18 11/14/18 methotrexate sodium 15 mg PO TH 08/22/18 11/14/18 omeprazole 20 mg PO DAILY 08/22/18 11/14/18 CoQ-10 1,000 mg PO DAILY 11/14/18 11/14/18 Diet Manage 1 dose PO DAILY 11/14/18 11/14/18 ascorbic acid (vitamin C) [Vitamin 500 mg PO DAILY 11/14/18 11/14/18 C] cholecalciferol (vitamin D3) 2,000 unit PO DAILY 11/14/18 11/14/18 [Vitamin D3] diltiazem HCl [Cartia XT] 120 mg PO DAILY 11/14/18 donepezil 10 mg PO DAILY 11/14/18 ferrous sulfate 142 mg PO DAILY 11/14/18 11/14/18 mupirocin 1 applic TOPICAL BEDTIME 11/14/18 11/14/18 omega 4-yns-acf-fish oil [Fish Oil] 2,000 mg PO DAILY 11/14/18 11/14/18 Previous Rx's Medication Instructions Recorded dabigatran etexilate [Pradaxa] 150 mg PO BID #60 cap 08/25/18 prednisone See Rx Instructions .ROUTE 11/14/18 .COMPLEX #21 each Allergies Allergy/AdvReac Type Severity Reaction Status Date / Time lisinopril [LISINOPRIL] AdvReac Unknown COUGH Verified 08/21/18 08:03 Review of Systems Constitutional Denies chills, Denies fever(s), Denies lethargy and Reports weakness (Left arm) Eyes Denies change in vision, Denies eye discharge, Denies irritation and Denies loss of vision ENT Ears, Nose, Mouth, and Throat: Denies change in voice, Denies neck pain and Denies sore throat Cardiovascular Denies chest pain, Denies irregular heart rhythm, Denies lightheadedness, Denies palpitations, Denies dyspnea, Denies dyspnea on exertion and Denies orthopnea Respiratory Denies cough, Denies dyspnea, Denies dyspnea on exertion and Denies wheezing Gastrointestinal Gastrointestinal: Denies abdominal pain, Denies change in bowel habits, Denies diarrhea, Denies nausea and Denies vomiting Genitourinary Denies hematuria, Denies flank pain, Denies urinary incontinence and Denies urinary urgency Musculoskeletal Denies neck pain Integumentary/Breasts Denies pruritus, Denies erythema, Denies rash and Denies wounds Neurologic Denies confusion, Denies loss of vision and Reports weakness (Left arm) Psychiatric Denies anxiety, Denies confusion, Denies depression, Denies homicidal ideation and Denies suicidal ideation Endocrine Denies palpitations Hematologic/Lymphatic Denies easy bruising Allergic/Immunologic Denies wheezing FOR[facility], LAT[facility] Medical History Atrial fibrillation (Acute) Gastroesophageal reflux (Acute) Hypertension (Acute) Osteoarthritis (Acute) Rheumatoid arthritis (Acute) Scoliosis (Acute) Surgical History History of spinal surgery (Acute) Social History household members: spouse and children Smoking Status: Former smoker alcohol intake: current Social History household members: spouse and children Smoking Status: Former smoker alcohol intake: current Exam Initial Vital Signs Initial Vital Signs: Vital Signs Temperature 97.8 F 11/14/18 15:32 Pulse Rate 83 11/14/18 15:32 Respiratory Rate 13 11/14/18 15:32 Blood Pressure 117/67 11/14/18 15:32 Pulse Oximetry 98 11/14/18 15:32 Const General: cooperative and well developed Nutritional Appearance: well nourished Orientation: alert, awake, oriented x3 and not confused HENMT Head: normocephalic and atraumatic Ears: external ears normal and TM's normal bilaterally Nose: external nose normal and No nasal discharge Face and sinus: sinuses nontender, face symmetric, no sinus tenderness and No dry mucous membranes Mouth: oral mucosae normal and moist mucous membranes Teeth and gingiva: dentition normal Throat: tonsils normal and uvula midline Eyes General: appearance normal, both eyes and all related structures Eyelids: eyelids normal Conjunctivae: conjunctivae normal Sclera: sclerae normal Pupils: PERRL EOM: EOM intact bilaterally Neck Neck: normal visual inspection, trachea midline, No lymphadenopathy, No midline deformity and No JVD Lymphatic: No lymphedema Chest Chest: normal inspection of the chest Resp Effort & Inspection: normal respiratory effort, able to speak in complete sentences, no respiratory distress and no use of accessory muscles Auscultation: clear to auscultation bilaterally, no rales, no rhonchi and no wheezes Cardio Rate: regular rate Rhythm: regular rhythm Heart Sounds: no click, no gallops, no murmurs and no rubs Pulses: normal peripheral pulses GI Inspection: non-distended Palpation: soft, no hepatosplenomegaly, No guarding, No pulsatile mass and No tender Auscultation: normal bowel sounds Back/Spine/Pelvis Back: No CVA tenderness Cervical Spine: cervical ROM normal and No pain with cervical ROM Thoracic/Lumbar Spine: thoracic and lumbar spine normal to inspection Skin General: no rashes or lesions noted, No jaundice and No petechiae Neuro General: alert, awake, oriented x3 and no focal motor deficits Speech: speech normal Other: Patient has full range of motion of her left upper extremity at all joints, though she does wince in pain when she raises her left arm fully. Patient has equal strength in her entire bilateral upper extremities. Extrem General: no clubbing, cyanosis or edema, no pedal edema and no calf tenderness Other: Patient has severe contractures and deformities of her fingers on both hands, consistent with history of rheumatoid arthritis. She has mild edema of the dorsum of her left wrist and hand, without tenderness. Erythema of the skin noted in the same area. Psych Appearance: well kempt Mental Status: mental status grossly normal Attitude: cooperative Thought Content: normal and suicidality Judgment: judgment good Course Course Narrative: Patient was worked up with labs, which were unremarkable, and a CT scan of the head, which was also unremarkable. Although EKG showed the patient to be in atrial fibrillation, the patient's monitor reading was now showing a normal sinus rhythm with distinct P-waves and a regular rate. The patient's physical exam had actually been quite symmetrical, and the patient has limitation of use of the left upper extremity seemed to be more related to shoulder discomfort than an actual strength deficit. The patient stated that she had briefly stopped her Pradaxa, due to GI bleeding, but that she was only rarely in atrial fibrillation. I felt that the likelihood of CVA was low, based on the patient's physical exam findings and history of symptoms. Additionally, 2 days after onset of symptoms, the patient's head CT was still negative. The patient had an echocardiogram scheduled with Dr. Lopez in follow-up. Additionally, I have spoken to the patient about having a carotid Doppler performed as an outpatient through her primary care physician. However, I did not find evidence of a cerebral vascular event today, and I feel the patient is stable for discharge home. Orders Ordered: Discontinued Medications Dexamethasone (Decadron) 10 mg IV NOW ONE Stop: 11/14/18 17:53 Last Admin: 11/14/18 17:57 Dose: 10 mg Vital Signs - 8 hr 11/14/18 15:32 Temperature 97.8 F Pulse Rate 83 Respiratory Rate 13 Blood Pressure 117/67 Pulse Oximetry 98 MDM - Neuro Symptoms/Deficit Medical Records Attestation: I reviewed the patient's medical records. Lab Data Attestation: I reviewed the patient's lab results. Result diagrams: 11/14/18 15:37 11/14/18 15:37 Lab Results 11/14/18 11/14/18 Range/Units 15:37 15:37 WBC 15.3 H (4.5-11.0) X10^3/uL RBC 4.60 (4.0-5.2) X10^6/uL Hgb 13.3 (12.0-16.0) g/dL Hct 40.2 (36-46) % MCV 87.4 (80-100) fL MCH 28.8 (26-34) PG MCHC 33.0 (30-36) % RDW 16.5 H (11.6-14.8) % Plt Count 363 (150-400) X10^3/uL Neut % (Auto) 82.6 H (50-75) % Lymph % (Auto) 7.0 L (25-40) % Frio % (Auto) 10.0 (3-14) % Eos % (Auto) 0.1 L (2-4) % Baso % (Auto) 0.3 (0-2) % Neut # (Auto) 51913 H (1786-3345) /uL Lymph # (Auto) 1100 (6356-2213) /uL Frio # (Auto) 1500 H (0-900) /uL Eos # (Auto) 0 (0-450) /uL Baso # (Auto) 0 (0-100) /uL Sodium 135 L (137-145) mmol/L Potassium 3.8 (3.4-5.1) mmol/L Chloride 92 L (98-107) mmol/L Carbon Dioxide 29 (22-32) mmol/L BUN 51 H (7-17) mg/dL Creatinine 1.30 H (0.52-1.04) mg/dL Estimated GFR 39.7 L (>60) mL/min BUN/Creatinine Ratio 39.2 H (6-22) Glucose 103 (80-110) mg/dL Calcium 9.9 (8.4-10.2) mg/dL Total Bilirubin 0.7 (0.2-1.3) mg/dL AST 34 (14-36) IU/L ALT 21 (9-52) IU/L Alkaline Phosphatase 100 (38-126) U/L Total Creatine Kinase 32 (30-135) U/L CK-MB (CK-2) TNP CK-MB (CK-2) Rel Index TNP Troponin I 0.019 (0.01-0.034) ng/mL Total Protein 7.6 (6.3-8.2) g/dL Albumin 4.3 (3.5-5.0) g/dL Globulin 3.3 (1.7-4.1) g/dL Albumin/Globulin Ratio 1.3 (1.0-2.8) Imaging Data CT scan - head: Radiologist's impression: PROCEDURE: CT HEAD/BRAIN WO CON INDICATIONS: L arm weakness TECHNIQUE: Noncontrast 4.5 mm thick angled axial sections acquired from the foramen magnum to the vertex, with coronal and sagittal reformats. For radiation dose reduction, the following was used: automated exposure control, adjustment of mA and/or kV according to patient size. COMPARISON: None. FINDINGS: Image quality: Excellent. CSF spaces: Basal cisterns are patent. No extra-axial fluid collections. The ventricles are symmetric in size and shape. Brain: No intracranial bleeds or masses. There is cerebral volume loss for age, with resultant ventricular and sulcal prominence. There are periventricular and deep white matter chronic small vessel ischemic changes. There is intracranial internal carotid artery atherosclerosis. Skull and face: Calvarium and visualized facial bones appear intact, without suspicious lesions. Sinuses: Visualized sinuses and mastoids are clear. IMPRESSION: Moderate microvascular atherosclerotic change in the deep white matter of each posterior, no acute disease. Dictated by: Dennis David M.D. on 11/14/2018 at 17:02 Approved by: Dennis David M.D. on 11/14/2018 at 17:02 ECG Data Attestation: I personally reviewed and interpreted this ECG as follows: (See below) Prior ECG tracings: not available for review Interpretation: Twelve lead EKG performed November 14, 2018 at 3:30 p.m., as follows: Irregular ventricular rhythm with a rate of 87 beats per minute P waves undetectable QRS duration 130 millisecond QTC interval [address] T wave changes Interpretation: Atrial fibrillation with aberrant conduction or PVCs; right bundle-branch block; no sense acute ischemia; abnormal EKG as interpreted by ED MD. Discharge Plan Departure Patient Disposition: Home Clinical Impression: Impingement syndrome of left shoulder Discharge Date/Time: 11/14/18 18:05 Interventions: ED Discharge Assessment Last Done: 11/14/18 18:04 Instructions: Shoulder Tendinopathy Activity Restrictions/Additional Instructions: Your CT scan looks good. There is no evidence of a stroke at this time. If your left shoulder pain continues for more than the next 2 weeks, then please follow up with your primary doctor to determine whether MRI of the neck and shoulder are needed. Prescriptions: New prednisone 10 mg tablets,dose pack See Rx Instructions .ROUTE .COMPLEX Qty: 21 RF: 0 No Action folic acid 1 MG tablet 1 mg PO BID Qty: 0 RF: 0 prednisone 5 MG tablet 5 mg PO DAILY Qty: 0 RF: 0 tramadol 50 MG tablet 50 - 100 mg PO Q6H PRN (Reason: pain) Qty: 0 RF: 0 ranitidine HCl 150 MG tablet 150 mg PO BEDTIME Qty: 0 RF: 0 losartan 50 mg Tablet 50 mg PO DAILY RF: 0 citalopram 20 mg Tablet 20 mg PO DAILY RF: 0 methotrexate sodium 2.5 mg Tablet 15 mg PO TH RF: 0 hydroxychloroquine 200 mg Tablet 200 mg PO DAILY RF: 0 omeprazole 20 mg Capsule,Delayed Release(Dr/Ec) 20 mg PO DAILY RF: 0 cyanocobalamin (vitamin B-12) [Vitamin B-12] 1,000 mcg Tablet 1,000 mcg PO DAILY RF: 0 One-A-Day Menopause Formula 400-60 mcg-mg Tablet 1 tab PO DAILY RF: 0 Pradaxa 150 mg capsule 150 mg PO BID Qty: 60 RF: 0 ascorbic acid (vitamin C) [Vitamin C] 500 mg Capsule, Extended Release 500 mg PO DAILY RF: 0 mupirocin 2 % Ointment 1 applic TOPICAL BEDTIME RF: 0 cholecalciferol (vitamin D3) [Vitamin D3] 2,000 unit Tablet 2,000 unit PO DAILY RF: 0 ferrous sulfate 142 mg (45 mg iron) Tablet Extended Release 142 mg PO DAILY RF: 0 omega 1-typ-eas-fish oil [Fish Oil] 1,000 mg (120 mg-180 mg) Capsule 2,000 mg PO DAILY RF: 0 CoQ-10 1,000 mg 1,000 mg PO DAILY RF: 0 Diet Manage 1 dose PO DAILY RF: 0 donepezil 10 mg Tablet 10 mg PO DAILY RF: 0 diltiazem HCl [Cartia XT] 120 mg Capsule,Extended Release 24hr 120 mg PO DAILY RF: 0 Referrals: Aishwarya Richard MD [Primary Care Provider] -
[2018-11-14 17:00] VITALS: BP 137/66; PULSE 77; RESP 17; O2SAT 98
[2018-11-14] MEDS: DEXAMETHASONE 10 MG/ML VIAL IV (17:57)
[2018-11-14 18:04] VITALS: BP 120/63; PULSE 80; RESP 27; O2SAT 98
== END 2018-11-14 18:05 | disposition home or self-care (01) ==
PROVIDERS: Emergency Provider Emergency Medicine; Family Provider Internal Medicine; PCP Internal Medicine
DX: M75.42 Impingement syndrome of left shoulder (principal)
CPT/HCPCS: 70450; 80053; 82550; 84484; 85025; 93005; 93010; 96374; 99282; 99285; J1100

== ENCOUNTER → 2019-01-05 09:11 | Outpatient (CLI) | payer OTHER, SELFPAY ==
[2018-08-22 17:52] VITALS: BMI 17.6
--- NOTE | 2019-01-05 | DI.NM.S_ITS ---
PROCEDURE: [facility] PERF SPECT R&S PHARM Rest and pharmacological stress myocardial perfusion SPECT with gated imaging and ejection fraction RADIOPHARMACEUTICAL: 25.9 mCi Tc-99m tetrafosmin IV at rest and 24.1 mCi Tc-99m tetrafosmin IV at peak effect of pharmacological stress. [id number] was performed. INDICATIONS: Paroxysmal atrial fibrillation TECHNIQUE: Radiopharmaceutical was injected at peak stress test, and also at rest. SPECT images were obtained. SPECT myocardial perfusion images were displayed in short axis, horizontal long axis, and vertical long axis views. Gated images were reviewed using [employer] software. COMPARISON: [facility], [place], LEXISCAN MYOCARDIAL PERFUSION, 06/24/2011, 14:32. CARDIAC STRESS: A pharmacologic stress test was performed under the supervision of an attending staff, using an infusion of Lexiscan . Hemodynamic data: There is normal blood pressure and heart rate response to pharmacologic stress. Symptoms: The patient denied anginal chest pain. Aminophylline: Not used EKG: Normal sinus rhythm with right bundle branch block and no ST/T abnormalities indicative of ischemia or infarct. With Lexiscan infusion there is no diagnostic changes of ischemia; no ectopy. FINDINGS: Raw data: There is good myocardial uptake of radiotracer. No significant motion artifacts. Uavf-bg-msuae ratio is 0.32 (normal is less than 0.38 for tetrafosmin tracer). Left ventricle function: Gated images demonstrate normal left ventricular wall thickening. No segmental wall motion abnormalities. No transient ischemic dilation; TID is 0.63 (normal less than 1.3). Left ventricle resting end diastolic volume is 60 mL. Left ventricle stress ejection fraction is >75% ; normal range is above 45%. Myocardial perfusion: There is a small, mild apical perfusion defect at rest that completely resolves on stress consistent with artifact. Otherwise normal distribution of activity in the left ventricular myocardium. No fixed or reversible perfusion defects. No prone imaging due to patient's physical limitation. IMPRESSION: Normal pharmacological myocardial perfusion study without evidence of ischemia or scar. Small LV cavity; LVEF is overestimated Dictated by: Wiliam Ceron M.D. on 01/06/2019 at 14:57 Approved by: Wiliam Ceron M.D. on 01/06/2019 at 15:03
--- NOTE | 2019-01-05 10:17 | PM.TREADMILL ---
Cardiac Stress Test Report Referral & Results Date Patient Seen: 01/05/19 Requesting provider: Armand Pearce Indication: Atrial fibrillation Procedure Note: After both written and verbal informed consent the patient had an IV started by the diagnostic imaging RN, and then was hooked up to the treadmill monitoring system. The Lexiscan material, and then the Cardiolite tracer, were administered sequentially. An additional 3 min was spent monitoring the patient while supine on the gurney. The patient had a normal response to all infused materials. Impression: Please see perfusion imaging report for details regarding possible ischemia Please note: Actual ECG tracings can be found in the PACS system.
== END ==
PROVIDERS: PCP Internal Medicine; Visit Provider Internal Medicine Cardiovascular Disease
DX: I48.0 Paroxysmal atrial fibrillation (principal)
CPT/HCPCS: 78452; 93016; 93017; 93018; A9502; J2785

== ENCOUNTER → 2019-01-06 12:48 | Outpatient (CLI) | payer OTHER, SELFPAY ==
[2018-08-22 17:52] VITALS: BMI 17.6
--- NOTE | 2019-01-06 | DI.ECHO.S_ITS ---
[facility]---------+ [facility] +---------+ : : [address] : : : : [id number] : : : : Phone: [phone] Echocardiogram Report + + :Name: LORENA YOUNGER Study Date: 01/06/2019 Height: 59 in : :[facility] Location: [facility] Weight: 89 lb : : Gender: Female BSA: 1.3 m2 : :: 1940 Age: 78 yrs BP: 129/78 mmHg: :Reason For Study: Atrial fibrillation - paroxysmal : :Ordering Physician: Armand : :Mindy Pearce Performed By: Gricel Page : + + Interpretation Summary The left ventricle is normal in size. Left ventricular ejection fraction is estimated to be 70 +/- 5%. The right ventricle is normal in size and function. The left atrium is severely dilated. There is mild to moderate mitral regurgitation. There is moderate tricuspid regurgitation. The right ventricular systolic pressure is estimated to be at least 30 mmHg based on an estimated right atrial pressure of 8 mm Hg. Compared to the prior echo exam, there has been no change in TR severity. There is mild luminal irregularity and echogenicity in the abdominal aorta, suggestive of aortic atherosclerotic disease. Mild atherosclerotic plaque(s) in the aortic arch. The patient was in normal sinus rhythm during the exam. The patient had a brief run of tachycardia rate appears to be atrial tachycardia reaching 160 bpm, captured in image 82. The patient had frequent PVCs during the exam. Procedure: A two-dimensional transthoracic echocardiogram with color flow and Doppler was performed. The study quality was technically adequate. Comparison is made with the echocardiogram of 11/06/2009. The patient had frequent PVCs during the exam. The patient had a brief run of tachycardia rate appears to be atrial tachycardia reaching 160 bpm, captured in image 82. The heart rate ranged between 63-160 bpm during the study. The patient was in normal sinus rhythm during the exam. Left Ventricle: The left ventricle is normal in size. Proximal septal thickening is noted. There is no echo evidence for significant left ventricular outflow tract obstruction. There is no thrombus. A false chord is noted (normal variant). Left ventricular ejection fraction is estimated to be 70 +/- 5%. There is a significant dyssynchronous contraction pattern, consistent with a conduction abnormality. There are no focal wall motion abnormalities. Diastolic parameters suggest a relaxation abnormality of the left ventricle, consistent with probable normal filling pressures. Right Ventricle: The right ventricle is normal in size and function. Atria: The left atrium is severely dilated. The left atrium has mildly increased in size since the prior echo exam. The right atrium is moderately dilated. There is no Doppler evidence for an interatrial shunt. Mitral Valve: The mitral valve leaflets appear mildly thickened, but open well. Tip of the anterior mitral leaflet is calcified. There is mild to moderate mitral regurgitation. Compared to the prior echo study, there has been an increase in the severity of mitral regurgitation. Aortic Valve: The aortic valve is trileaflet. The aortic valve is mildly calcified. Noncoronary cusp mobility is reduced however no significant aortic stenosis seen. There is no aortic valve stenosis. Trace to mild AR. Tricuspid Valve: There appears to be mild prolapse of the tricuspid leaflets. There is moderate tricuspid regurgitation. The right ventricular systolic pressure is estimated to be at least 30 mmHg based on an estimated right atrial pressure of 8 mm Hg. Compared to the prior echo exam, there has been no change in TR severity. Pulmonic Valve: The pulmonic valve is not well visualized. There is trace pulmonic regurgitation. Great Vessels: The aortic root is normal size. The ascending aorta is normal in size. There is mild luminal irregularity and echogenicity in the abdominal aorta, suggestive of aortic atherosclerotic disease. Mild atherosclerotic plaque(s) in the aortic arch. The pulmonary is not well visualized. The IVC is of normal diameter and collapses less than 50% with a sniff. This suggests a right atrial pressure of 8 mm Hg. Pericardium/ Pleura There is no pericardial effusion. There is no pleural effusion. MMode/2D Measurements & Calculations LVIDd: 3.9 cm LVOT diam: 1.9 cm LVIDs: 2.4 cm Ao root diam: 2.8 cm FS: 39.2 % asc Aorta Diam: 2.9 cm EPSS: 0.13 cm IVSd: 0.81 cm LVPWd: 0.54 cm LV salazar. diameter/BSA (cm/m^2): 3.0 LV sys. diameter/BSA (cm/m^2): 1.8 LA A2 area: 22.5 cm2 RA long axis: 5.4 cm LA A4 area: 20.1 cm2 RA area: 18.4 cm2 LA length (vol): 5.5 cm RA vol: 53.1 ml LA vol: 69.9 ml RA : 40.6 ml/m2 LA vol index: 53.4 ml/m2 IVC diam: 1.9 cm RVD1 (basal): 3.1 cm RVD2 (mid): 3.4 cm Doppler Measurements & Calculations Ao V2 max: 161.3 cm/sec LVOT Max Kvng: 104.0 cm/sec Ao V2 mean: 102.4 cm/sec LV V1 max P.3 mmHg Ao max P.4 mmHg LV V1 VTI: 22.9 cm Ao mean P.8 mmHg CARRIE(I,D): 2.1 cm2 Ao V2 VTI: 31.8 cm CARRIE(V,D): 1.9 cm2 sev ratio: 0.72 CARRIE indexed to BSA (cm^2/m^2): 1.6 AI P1/2t: 503.3 msec AI dec slope: 257.4 cm/sec2 MV E max kvng: 82.8 cm/sec TR max kvng: 235.9 cm/sec MV A max kvng: 96.8 cm/sec TR max P.3 mmHg MV E/A: 0.86 PA V2 max: 90.9 cm/sec Med Peak E' Kvng: 3.4 cm/sec PA V2 mean: 58.0 cm/sec E/E' med: 24.3 PA mean P.6 mmHg Lat Peak E' Kvng: 8.5 cm/sec PA Accel Time: 0.12 sec E/E' lat: 9.8 E/e' average: 17.0 MV P1/2t: 83.7 msec MV P1/2t max kvng: 82.8 cm/sec SV(LVOT): 66.5 ml MVA(P1/2t): 2.6 cm2 Reading Physician:06:43 PM
== END ==
PROVIDERS: PCP Internal Medicine; Visit Provider Internal Medicine Cardiovascular Disease
DX: I08.1 Rheumatic disorders of both mitral and tricuspid valves (principal); I48.0 Paroxysmal atrial fibrillation
CPT/HCPCS: 93306

== ENCOUNTER → 2019-03-27 15:24 | Outpatient (ROUT) | payer OTHER, SELFPAY ==
[2018-08-22 17:52] VITALS: BMI 17.6
[2019-03-27 15:51] LABS: BUN Creatinine Ratio 38.3 (6-22); Blood Urea Nitrogen 23 mg/dL (7-17); Calcium 9.5 mg/dL (8.4-10.2); Carbon Dioxide 26 mmol/L (22-32); Chloride 99 mmol/L (98-107); Estimated Glomerular Filt Rate > 60.0 mL/min (>60); Glucose 113 mg/dL (80-110); HEMOLYSIS < 15 (0-50); Potassium 4.5 mmol/L (3.4-5.1); Sodium 135 mmol/L (137-145)
== END ==
PROVIDERS: PCP Internal Medicine; Visit Provider Internal Medicine
DX: I10 Essential (primary) hypertension (principal)
CPT/HCPCS: 80048

== ENCOUNTER → 2019-05-23 08:39 | Outpatient (CLI) | payer OTHER, SELFPAY ==
[2018-08-22 17:52] VITALS: BMI 17.6
[2019-05-23 09:49] LABS: Cholesterol 154 mg/dL (140-199); HDL Cholesterol 48 mg/dL (40-60); LDL Cholesterol Calculated 69 mg/dL (<100); Triglycerides 185 mg/dL (35-150)
== END ==
PROVIDERS: PCP Internal Medicine; Referring Provider Internal Medicine Cardiovascular Disease; Visit Provider Internal Medicine
DX: E78.5 Hyperlipidemia, unspecified (principal)
CPT/HCPCS: 36415; 80061

== ENCOUNTER → 2020-06-13 15:34 | Outpatient (CLI) | payer MEDICARE, SELFPAY ==
[2018-08-22 17:52] VITALS: BMI 17.6
[2020-06-13] MEDS: COVID-19 VACC, Ad26(JANSSEN)/PF 0.5 ML IM (15:54)
== END ==
PROVIDERS: PCP Internal Medicine; Visit Provider Internal Medicine
DX: Z23 Encounter for immunization (principal)
CPT/HCPCS: 0031A; 91303

== ENCOUNTER → 2020-07-24 07:24 | Outpatient (CLI) | payer OTHER, SELFPAY ==
[2018-08-22 17:52] VITALS: BMI 17.6
[2020-07-24 08:03] LABS: Alanine Aminotransferase 16 IU/L (<35); Albumin 3.9 g/dL (3.5-5.0); Albumin Globulin Ratio 1.3 (1.0-2.8); Alkaline Phosphatase 131 U/L (38-126); Aspartate Aminotransferase 26 IU/L (14-36); BUN Creatinine Ratio 19.5 (6-22); Bilirubin Total 0.4 mg/dL (0.2-1.3); Blood Urea Nitrogen 16 mg/dL (7-17); Calcium 9.3 mg/dL (8.4-10.2); Carbon Dioxide 29 mmol/L (22-32); Chloride 102 mmol/L (98-107); Cholesterol 145 mg/dL (140-199); Estimated Glomerular Filt Rate > 60.0 mL/min (>60); Globulin 2.9 g/dL (1.7-4.1); Glucose 94 mg/dL (80-110); HDL Cholesterol 56 mg/dL (40-60); HEMOLYSIS < 15 (0-50); LDL Cholesterol Calculated 59 mg/dL (<100); Potassium 4.4 mmol/L (3.4-5.1); Sodium 136 mmol/L (137-145); Total Protein 6.8 g/dL (6.3-8.2); Triglycerides 150 mg/dL (35-150)
[2020-07-24 08:48] LABS: Vitamin B12 411 pg/mL (239-931)
[2020-07-24 09:05] LABS: TSH w/ Reflex to FT4 1.18 uIU/mL (0.47-4.68)
== END ==
PROVIDERS: PCP Internal Medicine; Referring Provider Internal Medicine; Visit Provider Internal Medicine
DX: G31.84 Mild cognitive impairment of uncertain or unknown etiology (principal); I10 Essential (primary) hypertension; E78.00 Pure hypercholesterolemia, unspecified
CPT/HCPCS: 36415; 80053; 80061; 82607; 84443

== ENCOUNTER → 2020-08-02 12:56 | Outpatient (CLI) | payer OTHER, SELFPAY ==
[2018-08-22 17:52] VITALS: BMI 17.6
== END ==
PROVIDERS: PCP Internal Medicine; Referring Provider Internal Medicine; Visit Provider Internal Medicine
DX: M81.0 Age-related osteoporosis without current pathological fracture (principal); E07.9 Disorder of thyroid, unspecified; M06.9 Rheumatoid arthritis, unspecified; Z78.0 Asymptomatic menopausal state; Z87.891 Personal history of nicotine dependence
CPT/HCPCS: 77080

== ENCOUNTER 2020-11-17 20:52 | Inpatient (IN) | payer OTHER, SELFPAY ==
[2018-08-22 17:52] VITALS: BMI 17.6
[2020-11-17] VITALS (7 sets, daily range): BP systolic 109–138; BP diastolic 59–108; PULSE 128–144; RESP 20–34; TEMP 37.1; O2SAT 95–98; BMI 19.8
--- NOTE | 2020-11-17 21:01 | ED_ITS ---
HPI - Altered Mental Status General Chief Complaint: Arrhythmia/Palpitations Stated Complaint: Change of mental status Time Seen by Provider: 11/17/20 21:00 History of Present Illness HPI narrative: Patient is a 80-year-old female with history of dementia, atrial fibrillation on Pradaxa presenting today with fall and decreasing mental status. states that she has actually had increased confusion over the last 2 weeks. She has had 3 falls in the last 2 days and 2 today. The 2nd 1 she had a brief loss of consciousness. He said it lasted for about minutes she was able to put her in her walker and we will her to the room. At that point he called 911. She has not had any fever she overall is extremely poor historian. She is vaccinated for COVID-19. He states that due to her falls and confusion she did not have any of her medications in the afternoon or this evening. She is noted to be in AFib with RVR. She was given 10 mg of diltiazem by EMS, which did seem to help. Related Data Home Medications Medication Instructions Recorded Confirmed folic acid 1 mg tablet 1 mg PO BID #0 08/03/09 11/14/18 prednisone 5 mg tablet 5 mg PO DAILY #0 09/17/16 11/14/18 tramadol 50 mg tablet 50 - 100 mg PO Q6H PRN #0 09/17/16 11/14/18 ranitidine HCl 150 mg tablet 150 mg PO BEDTIME #0 01/09/17 11/14/18 citalopram 20 mg tablet 20 mg PO DAILY 08/22/18 11/14/18 cyanocobalamin (vitamin B-12) 1,000 mcg PO DAILY 08/22/18 11/14/18 1,000 mcg tablet (Vitamin B-12) hydroxychloroquine 200 mg tablet 200 mg PO DAILY 08/22/18 11/14/18 losartan 50 mg tablet 50 mg PO DAILY 08/22/18 11/14/18 methotrexate sodium 2.5 mg tablet 15 mg PO TH 08/22/18 11/14/18 multivitamin-calcium, 1 tab PO DAILY 08/22/18 11/14/18 [id number] isoflavone 400 mcg-60 mg tablet (One-A-Day Menopause Formula) omeprazole 20 mg capsule,delayed 20 mg PO DAILY 08/22/18 11/14/18 release CoQ-10 1,000 mg PO DAILY 11/14/18 11/14/18 Diet Manage 1 dose PO DAILY 11/14/18 11/14/18 ascorbic acid (vitamin C) 500 mg 500 mg PO DAILY 11/14/18 11/14/18 capsule,extended release (Vitamin C) cholecalciferol (vitamin D3) 50 2,000 unit PO DAILY 11/14/18 11/14/18 mcg (2,000 unit) tablet (Vitamin D3) diltiazem HCl 120 mg 120 mg PO DAILY 11/14/18 capsule,extended release 24 hr (Cartia XT) donepezil 10 mg tablet 10 mg PO DAILY 11/14/18 ferrous sulfate 142 mg (45 mg 142 mg PO DAILY 11/14/18 11/14/18 iron) tablet,extended release mupirocin 2 % topical ointment 1 applic TOPICAL BEDTIME 11/14/18 11/14/18 omega [id number] oil 1,000 mg 2,000 mg PO DAILY 11/14/18 11/14/18 (120 mg-180 mg) capsule (Fish Oil) Previous Rx's Medication Instructions Recorded dabigatran etexilate 150 mg 150 mg PO BID #60 cap 08/25/18 capsule (Pradaxa) prednisone 10 mg tablets in a dose See Rx Instructions .ROUTE 11/14/18 pack .COMPLEX #21 each Allergies Allergy/AdvReac Type Severity Reaction Status Date / Time lisinopril [LISINOPRIL] AdvReac Unknown COUGH Verified 11/17/20 21:25 Review of Systems Review of Systems ROS Unobtainable: All systems reviewed & are unremarkable except as noted in HPI and below Constitutional Constitutional: Denies body ache(s), Denies chills and Reports frequent falls ENT Ears, Nose, Mouth, and Throat: Denies vertigo and Denies dizziness Cardiovascular Cardiovascular: Reports as per HPI and Reports irregular heart rhythm Respiratory Respiratory: Reports cough Gastrointestinal Gastrointestinal: Denies abdominal pain, Denies nausea and Denies vomiting Musculoskeletal Musculoskeletal: Denies abnormal gait, Denies back pain and Denies deformity Integumentary/Breasts Skin/Breast: Denies rash Neurologic Neurologic: Reports as per HPI, Denies abnormal gait, Reports confusion, Denies vertigo, Denies dizziness and Reports frequent falls Psychiatric Psychiatric: Reports confusion Patient History Medical History Atrial fibrillation Dementia Gastroesophageal reflux Hypertension Immunodeficiency due to treatment with immunosuppressive medication Osteoarthritis Rheumatoid arthritis Scoliosis Surgical History History of spinal surgery Social History household members: spouse and children Smoking Status: Former smoker alcohol intake: current Smoking Status: Former smoker alcohol intake frequency: a few times a month Substance Use Type: does not use Exam Initial Vital Signs Initial Vital Signs: Vital Signs Temperature 98.7 F 11/17/20 21:25 Pulse Rate 128 H 11/17/20 21:25 Respiratory Rate 20 11/17/20 21:25 Blood Pressure 138/59 L 11/17/20 21:25 Pulse Oximetry 98 11/17/20 21:25 GENERAL: A thin chronically ill 80-year-old female very pleasant HEENT: Head atraumatic,EOMI, pupils reactive, face symmetric, moist mucous membranes NECK: No cervical tendernmess CARDIOVASCULAR: Regular rate and rhythm without murmurs, rubs or gallops. RESPIRATORY: Breath sounds equal bilaterally, no wheezes rales or rhonchi. ABDOMEN: Soft, nontender. Normoactive bowel sounds all 4 quadrants. No guarding or rebound. EXTREMITIES: Normal range of motion, no clubbing or edema. Neurovascularly intact. Significant arthritis noted in hands and NEUROLOGICAL: Alert and oriented x2. SKIN: Warm, dry, no laceration, no petechiae, no rashes or lesions. Course Orders Ordered: ED Orders 11/17/20 21:01 EKG-12 Lead Stat 11/17/20 21:02 XR chest 1V Stat 11/17/20 21:03 CT head/brain wo con Stat 11/17/20 21:17 CT cervical spine wo con Stat 11/17/20 21:35 Acetaminophen Stat Complete Blood Count AUTO DIFF Stat Comprehensive Metabolic Panel Stat Ethanol (ETOH) Stat Lactate (Lactic Acid) Stat Procalcitonin Stat Prolactin Stat Salicylate Stat Thyroid Stimulating Hormone Stat Troponin & CK Cardiac Panel Stat 11/17/20 21:45 Blood Culture Stat 11/17/20 22:39 Urinalysis and Microscopic Stat Urine Culture Stat Urine Drug Screen, Rapid Stat 11/17/20 23:30 COVID19 - ADMIT (INSURANCE CLAIM APPROVER swab/PCR) Stat Acetaminophen (Acetaminophen 325 Mg Tablet) 650 mg PO Q6HR PRN PRN Reason: Fever/Mild Pain (1-3) Al Hydrox/Mg Hydrox/Simethicone (Mag Hydrox/Alum/Simeth 30 Ml Udc) 30 ml PO Q6HR PRN PRN Reason: Dyspepsia Azithromycin (Azithromycin 250 Mg Tablet) 500 mg PO DAILY CARLITA Sodium Chloride (Normal Saline 0.9%) 1,000 mls @ 150 mls/hr IV CONT CARLITA Last Infusion: 11/18/20 04:37 Dose: 100 mls/hr Documented by: CTRTUCKERENDT Infusion: 11/18/20 01:15 Dose: 150 mls/hr Documented by: Admin: 11/17/20 22:49 Dose: 150 mls/hr Documented by: PRAMOD Diltiazem HCl 125 mg/ Sodium (Chloride) 125 mls @ 5 mls/hr IV TITRATE CARLITA; Protocol Last Titration: 11/18/20 05:13 Dose: 0 mg/hr, 0 mls/hr Documented by: Titration: 11/18/20 02:02 Dose: 5 mg/hr, 5 mls/hr Documented by: Titration: 11/18/20 01:35 Dose: 5 mg/hr, 5 mls/hr Documented by: Titration: 11/18/20 01:14 Dose: 7.5 mg/hr, 7.5 mls/hr Documented by: Titration: 11/17/20 23:57 Dose: 7.5 mg/hr, 7.5 mls/hr Documented by: Admin: 11/17/20 22:56 Dose: 5 mg/hr, 5 mls/hr Documented by: PRAMOD Ceftriaxone Sodium 1,000 mg/ (Sodium Chloride) 100 mls @ 200 mls/hr IV Q24H CARLITA Last Admin: 11/18/20 05:10 Dose: 200 mls/hr Documented by: TRIENDT Magnesium Hydroxide (Magnesium Hydroxide 30 Ml Udc) 30 ml PO DAILY PRN PRN Reason: Constipation Melatonin (Melatonin 3 Mg Tablet) 6 mg PO BEDTIME CARLITA Last Admin: 11/18/20 04:12 Dose: 6 mg Documented by: TRIENDAsha Naloxone HCl (Naloxone 0.4 Mg/Ml Vial) 0.2 mg IV Q2MIN PRN PRN Reason: Opiate Reversal Naloxone HCl (Naloxone 0.4 Mg/Ml Vial) 0.2 mg IV Q2MIN PRN PRN Reason: Opiate Reversal Prednisone (Prednisone 20 Mg Tablet) 40 mg PO DAILY CARLITA Stop: 11/23/20 08:59 Sennosides (Sennosides 8.6 Mg Tablet) 17.2 mg PO BEDTIME CARLITA Discontinued Medications Diltiazem HCl (Diltiazem Cd 120 Mg Cap) 120 mg PO NOW ONE Stop: 11/17/20 23:30 Last Admin: 11/18/20 00:15 Dose: 120 mg Documented by: PRAMOD Piperacillin Sod/Tazobactam (Sod 4.5 gm/ Sodium Chloride) 100 mls @ 200 mls/hr IV NOW ONE Stop: 11/17/20 22:52 Last Infusion: 11/17/20 23:46 Dose: 0 mls/hr Documented by: Admin: 11/17/20 23:19 Dose: 200 mls/hr Documented by: PRAMOD Sodium Chloride (Normal Saline 0.9%) 1,000 mls @ 1,000 mls/hr IV BOLUS ONE Stop: 11/17/20 23:50 Last Infusion: 11/18/20 02:20 Dose: 0 mls/hr Documented by: Infusion: 11/18/20 01:14 Dose: 399 mls/hr Documented by: Admin: 11/17/20 23:21 Dose: 1,000 mls/hr Documented by: PRAMOD POTASSIUM CHLORIDE IN WATER (Potassium Cl 10 Meq/100 Ml Fior) 10 meq in 100 mls @ 100 mls/hr IV Q1H CARLITA Stop: 11/18/20 03:29 Last Infusion: 11/18/20 04:37 Dose: 0 mls/hr Documented by: Admin: 11/18/20 03:40 Dose: 100 mls/hr Documented by: Infusion: 11/18/20 03:40 Dose: 100 mls/hr Documented by: Admin: 11/18/20 03:39 Dose: 100 mls/hr Documented by: Infusion: 11/18/20 02:15 Dose: 100 mls/hr Documented by: Admin: 11/18/20 01:15 Dose: 100 mls/hr Documented by: Infusion: 11/18/20 00:55 Dose: 0 mls/hr Documented by: Admin: 11/17/20 23:47 Dose: 100 mls/hr Documented by: PRAMOD Ceftriaxone Sodium 1,000 mg/ (Sodium Chloride) 100 mls @ 200 mls/hr IV Q24H [facility] Sodium Chloride (Normal Saline 0.9%) 1,000 mls @ 1,000 mls/hr IV BOLUS ONE Stop: 11/18/20 01:13 Last Admin: 11/18/20 05:26 Dose: Not Given Documented by: JERILYN Ceftriaxone Sodium 1,000 mg/ (Sodium Chloride) 100 mls @ 200 mls/hr IV Q24H [facility] Vital Signs Vital signs: Vital Signs - 8 hr 11/17/20 21:44 11/17/20 22:00 11/17/20 22:30 Pulse Rate 139 H 142 H 144 H Respiratory Rate 27 H 28 H 25 H Blood Pressure 138/59 L 138/59 L Pulse Oximetry 95 96 96 11/17/20 22:56 11/17/20 23:00 11/17/20 23:30 Pulse Rate 144 H 137 H 131 H Respiratory Rate 21 21 30 H Blood Pressure 109/78 118/78 135/108 H Pulse Oximetry 96 97 95 MDM - Altered Mental Status Lab Data Result diagrams: 11/17/20 21:35 11/17/20 21:35 Labs: Lab Results 11/17/20 11/17/20 11/17/20 Range/Units 21:35 21:35 21:35 WBC 18.0 H (4.5-11.0) X10^3/uL RBC 4.38 (4.0-5.2) X10^6/uL Hgb 12.8 (12.0-16.0) g/dL Hct 39.6 (36-46) % MCV 90.6 (80-100) fL MCH 29.4 (26-34) PG MCHC 32.4 (30-36) % RDW 16.0 H (11.6-14.8) % Plt Count 387 (150-400) X10^3/uL Neut % (Auto) 87.8 H (50-75) % Lymph % (Auto) 6.1 L (25-40) % [place] % (Auto) 5.5 (3-14) % Eos % (Auto) 0.1 L (2-4) % Baso % (Auto) 0.5 (0-2) % Neut # (Auto) 26453 H (3006-9140) /uL Lymph # (Auto) 1100 (6726-4893) /uL [place] # (Auto) 1000 H (0-900) /uL Eos # (Auto) 0 (0-450) /uL Baso # (Auto) 100 (0-100) /uL D-Dimer (<230) ng/mL Sodium 136 L (137-145) mmol/L Potassium 2.9 L (3.4-5.1) mmol/L Chloride 98 (98-107) mmol/L Carbon Dioxide 29 (22-32) mmol/L BUN 22 H (7-17) mg/dL Creatinine 1.01 (0.52-1.04) mg/dL Estimated GFR 52.9 L (>60) mL/min BUN/Creatinine Ratio 21.8 (6-22) Glucose 118 H (80-110) mg/dL Lactate 4.0 H (0.7-2.1) mmol/L Calcium 10.5 H (8.4-10.2) mg/dL Magnesium (1.6-2.3) mg/dL Total Bilirubin 0.8 (0.2-1.3) mg/dL AST 38 H (14-36) IU/L ALT 19 (<35) IU/L Alkaline Phosphatase 300 H (38-126) U/L Total Creatine Kinase 54 (30-135) U/L CK-MB (CK-2) TNP CK-MB (CK-2) Rel Index TNP Troponin I 0.121 H* (0.01-0.034) ng/mL C-Reactive Protein (<1.0) mg/dL Total Protein 6.5 (6.3-8.2) g/dL Albumin 3.8 (3.5-5.0) g/dL Globulin 2.7 (1.7-4.1) g/dL Albumin/Globulin Ratio 1.4 (1.0-2.8) Procalcitonin 1.77 H (<0.5) ng/mL TSH (0.47-4.68) uIU/mL Prolactin 42.4 H (3.0-18.6) ng/mL Urine Color Urine Appearance Urine pH (4.5-8.0) Ur Specific [place] (1.000-1.035) Urine Protein (Negative) Urine Glucose (UA) (Negative) g/dL Urine Ketones (NEGATIVE) Urine Occult Blood (Negative) Urine Nitrate (Negative) Urine Bilirubin (NEGATIVE) Urine Urobilinogen (0.2) E.U./dL Ur Leukocyte Esterase (NEGATIVE) Urine RBC (0-5/HPF) Urine WBC (0-5/HPF) Ur Squamous Epith Cells (0-5/HPF) Urine Bacteria (None) Ur Culture Indicated? Salicylates < 1.0 (<20) mg/dL U Opiates 300ng/mL cut (Negative) Ur Oxycodone Screen (Negative) Urine Methadone Screen (Negative) Acetaminophen < 10 L (10-30) ug/mL Ur Barbiturates Screen (Negative) U Tricyclic Antidepress (Negative) Ur Phencyclidine Scrn (Negative) Ur Amphetamines Screen (Negative) U Methamphetamines Scrn (Negative) Ur MDMA Scrn (Ecstasy) (Negative) U Benzodiazepines Scrn (Negative) Urine Cocaine Screen (Negative) U Marijuana (THC) Screen (Negative) Ethyl Alcohol 52 H ( - 10) mg/dL Chlamy pneumoniae PCR (Not Detect) Adenovirus (PCR) (Not Detect) B. pertussis DNA (PCR) (Not Detecte) B.parapertussis DNA PCR (Not Detecte) Coronavirus OC43 (PCR) (Not Detect) Coronavirus HKU1 (PCR) (Not Detect) Coronavirus 229E (PCR) (Not Detect) SARS-CoV-2 (PCR) (Negative) Coronavirus NL63 (PCR) (Not Detect) Human Metapneumovir PCR (Not Detect) Influenza Type A (PCR) (Not Detect) Influenza Type B (PCR) (Not Detect) M. pneumoniae (PCR) (Not Detect) Parainfluenza 1 (PCR) (Not Detect) Parainfluenza 2 (PCR) (Not Detect) Parainfluenza 3 (PCR) (Not Detect) Parainfluenza 4 (PCR) (Not Detect) RSV (PCR) (Not Detect) Entero/Rhino (PCR) (Not Detect) 11/17/20 11/17/20 11/17/20 Range/Units 21:35 21:35 21:35 WBC (4.5-11.0) X10^3/uL RBC (4.0-5.2) X10^6/uL Hgb (12.0-16.0) g/dL Hct (36-46) % MCV (80-100) fL MCH (26-34) PG MCHC (30-36) % RDW (11.6-14.8) % Plt Count (150-400) X10^3/uL Neut % (Auto) (50-75) % Lymph % (Auto) (25-40) % [place] % (Auto) (3-14) % Eos % (Auto) (2-4) % Baso % (Auto) (0-2) % Neut # (Auto) (1154-4941) /uL Lymph # (Auto) (7454-5860) /uL [place] # (Auto) (0-900) /uL Eos # (Auto) (0-450) /uL Baso # (Auto) (0-100) /uL D-Dimer 673 H (<230) ng/mL Sodium (137-145) mmol/L Potassium (3.4-5.1) mmol/L Chloride (98-107) mmol/L Carbon Dioxide (22-32) mmol/L BUN (7-17) mg/dL Creatinine (0.52-1.04) mg/dL Estimated GFR (>60) mL/min BUN/Creatinine Ratio (6-22) Glucose (80-110) mg/dL Lactate (0.7-2.1) mmol/L Calcium (8.4-10.2) mg/dL Magnesium (1.6-2.3) mg/dL Total Bilirubin (0.2-1.3) mg/dL AST (14-36) IU/L ALT (<35) IU/L Alkaline Phosphatase (38-126) U/L Total Creatine Kinase (30-135) U/L CK-MB (CK-2) CK-MB (CK-2) Rel Index Troponin I (0.01-0.034) ng/mL C-Reactive Protein 1.2 H (<1.0) mg/dL Total Protein (6.3-8.2) g/dL Albumin (3.5-5.0) g/dL Globulin (1.7-4.1) g/dL Albumin/Globulin Ratio (1.0-2.8) Procalcitonin (<0.5) ng/mL TSH 2.27 (0.47-4.68) uIU/mL Prolactin (3.0-18.6) ng/mL Urine Color Urine Appearance Urine pH (4.5-8.0) Ur Specific [place] (1.000-1.035) Urine Protein (Negative) Urine Glucose (UA) (Negative) g/dL Urine Ketones (NEGATIVE) Urine Occult Blood (Negative) Urine Nitrate (Negative) Urine Bilirubin (NEGATIVE) Urine Urobilinogen (0.2) E.U./dL Ur Leukocyte Esterase (NEGATIVE) Urine RBC (0-5/HPF) Urine WBC (0-5/HPF) Ur Squamous Epith Cells (0-5/HPF) Urine Bacteria (None) Ur Culture Indicated? Salicylates (<20) mg/dL U Opiates 300ng/mL cut (Negative) Ur Oxycodone Screen (Negative) Urine Methadone Screen (Negative) Acetaminophen (10-30) ug/mL Ur Barbiturates Screen (Negative) U Tricyclic Antidepress (Negative) Ur Phencyclidine Scrn (Negative) Ur Amphetamines Screen (Negative) U Methamphetamines Scrn (Negative) Ur MDMA Scrn (Ecstasy) (Negative) U Benzodiazepines Scrn (Negative) Urine Cocaine Screen (Negative) U Marijuana (THC) Screen (Negative) Ethyl Alcohol ( - 10) mg/dL Chlamy pneumoniae PCR (Not Detect) Adenovirus (PCR) (Not Detect) B. pertussis DNA (PCR) (Not Detecte) B.parapertussis DNA PCR (Not Detecte) Coronavirus OC43 (PCR) (Not Detect) Coronavirus HKU1 (PCR) (Not Detect) Coronavirus 229E (PCR) (Not Detect) SARS-CoV-2 (PCR) (Negative) Coronavirus NL63 (PCR) (Not Detect) Human Metapneumovir PCR (Not Detect) Influenza Type A (PCR) (Not Detect) Influenza Type B (PCR) (Not Detect) M. pneumoniae (PCR) (Not Detect) Parainfluenza 1 (PCR) (Not Detect) Parainfluenza 2 (PCR) (Not Detect) Parainfluenza 3 (PCR) (Not Detect) Parainfluenza 4 (PCR) (Not Detect) RSV (PCR) (Not Detect) Entero/Rhino (PCR) (Not Detect) 11/17/20 11/17/20 11/17/20 Range/Units 21:35 22:39 22:39 WBC (4.5-11.0) X10^3/uL RBC (4.0-5.2) X10^6/uL Hgb (12.0-16.0) g/dL Hct (36-46) % MCV (80-100) fL MCH (26-34) PG MCHC (30-36) % RDW (11.6-14.8) % Plt Count (150-400) X10^3/uL Neut % (Auto) (50-75) % Lymph % (Auto) (25-40) % [place] % (Auto) (3-14) % Eos % (Auto) (2-4) % Baso % (Auto) (0-2) % Neut # (Auto) (9477-7754) /uL Lymph # (Auto) (4311-4952) /uL [place] # (Auto) (0-900) /uL Eos # (Auto) (0-450) /uL Baso # (Auto) (0-100) /uL D-Dimer (<230) ng/mL Sodium (137-145) mmol/L Potassium (3.4-5.1) mmol/L Chloride (98-107) mmol/L Carbon Dioxide (22-32) mmol/L BUN (7-17) mg/dL Creatinine (0.52-1.04) mg/dL Estimated GFR (>60) mL/min BUN/Creatinine Ratio (6-22) Glucose (80-110) mg/dL Lactate (0.7-2.1) mmol/L Calcium (8.4-10.2) mg/dL Magnesium 1.7 (1.6-2.3) mg/dL Total Bilirubin (0.2-1.3) mg/dL AST (14-36) IU/L ALT (<35) IU/L Alkaline Phosphatase (38-126) U/L Total Creatine Kinase (30-135) U/L CK-MB (CK-2) CK-MB (CK-2) Rel Index Troponin I (0.01-0.034) ng/mL C-Reactive Protein (<1.0) mg/dL Total Protein (6.3-8.2) g/dL Albumin (3.5-5.0) g/dL Globulin (1.7-4.1) g/dL Albumin/Globulin Ratio (1.0-2.8) Procalcitonin (<0.5) ng/mL TSH (0.47-4.68) uIU/mL Prolactin (3.0-18.6) ng/mL Urine Color Yellow Urine Appearance Cloudy Urine pH 7.0 (4.5-8.0) Ur Specific [place] 1.010 (1.000-1.035) Urine Protein 2+ H (Negative) Urine Glucose (UA) Negative (Negative) g/dL Urine Ketones Negative (NEGATIVE) Urine Occult Blood 3+ H (Negative) Urine Nitrate Negative (Negative) Urine Bilirubin Negative (NEGATIVE) Urine Urobilinogen 0.2 (0.2) E.U./dL Ur Leukocyte Esterase Trace H (NEGATIVE) Urine RBC >100/hpf H (0-5/HPF) Urine WBC 0-1/hpf (0-5/HPF) Ur Squamous Epith Cells 0-1 /hpf (0-5/HPF) Urine Bacteria Occasional (0-1) (None) Ur Culture Indicated? Specimen cultured Salicylates (<20) mg/dL U Opiates 300ng/mL cut Negative (Negative) Ur Oxycodone Screen Negative (Negative) Urine Methadone Screen Negative (Negative) Acetaminophen (10-30) ug/mL Ur Barbiturates Screen Negative (Negative) U Tricyclic Antidepress Negative (Negative) Ur Phencyclidine Scrn Negative (Negative) Ur Amphetamines Screen Negative (Negative) U Methamphetamines Scrn Negative (Negative) Ur MDMA Scrn (Ecstasy) Negative (Negative) U Benzodiazepines Scrn Negative (Negative) Urine Cocaine Screen Negative (Negative) U Marijuana (THC) Screen Negative (Negative) Ethyl Alcohol ( - 10) mg/dL Chlamy pneumoniae PCR (Not Detect) Adenovirus (PCR) (Not Detect) B. pertussis DNA (PCR) (Not Detecte) B.parapertussis DNA PCR (Not Detecte) Coronavirus OC43 (PCR) (Not Detect) Coronavirus HKU1 (PCR) (Not Detect) Coronavirus 229E (PCR) (Not Detect) SARS-CoV-2 (PCR) (Negative) Coronavirus NL63 (PCR) (Not Detect) Human Metapneumovir PCR (Not Detect) Influenza Type A (PCR) (Not Detect) Influenza Type B (PCR) (Not Detect) M. pneumoniae (PCR) (Not Detect) Parainfluenza 1 (PCR) (Not Detect) Parainfluenza 2 (PCR) (Not Detect) Parainfluenza 3 (PCR) (Not Detect) Parainfluenza 4 (PCR) (Not Detect) RSV (PCR) (Not Detect) Entero/Rhino (PCR) (Not Detect) 11/17/20 11/17/20 Range/Units 23:30 23:30 WBC (4.5-11.0) X10^3/uL RBC (4.0-5.2) X10^6/uL Hgb (12.0-16.0) g/dL Hct (36-46) % MCV (80-100) fL MCH (26-34) PG MCHC (30-36) % RDW (11.6-14.8) % Plt Count (150-400) X10^3/uL Neut % (Auto) (50-75) % Lymph % (Auto) (25-40) % [place] % (Auto) (3-14) % Eos % (Auto) (2-4) % Baso % (Auto) (0-2) % Neut # (Auto) (2791-6516) /uL Lymph # (Auto) (7567-1329) /uL [place] # (Auto) (0-900) /uL Eos # (Auto) (0-450) /uL Baso # (Auto) (0-100) /uL D-Dimer (<230) ng/mL Sodium (137-145) mmol/L Potassium (3.4-5.1) mmol/L Chloride (98-107) mmol/L Carbon Dioxide (22-32) mmol/L BUN (7-17) mg/dL Creatinine (0.52-1.04) mg/dL Estimated GFR (>60) mL/min BUN/Creatinine Ratio (6-22) Glucose (80-110) mg/dL Lactate (0.7-2.1) mmol/L Calcium (8.4-10.2) mg/dL Magnesium (1.6-2.3) mg/dL Total Bilirubin (0.2-1.3) mg/dL AST (14-36) IU/L ALT (<35) IU/L Alkaline Phosphatase (38-126) U/L Total Creatine Kinase (30-135) U/L CK-MB (CK-2) CK-MB (CK-2) Rel Index Troponin I (0.01-0.034) ng/mL C-Reactive Protein (<1.0) mg/dL Total Protein (6.3-8.2) g/dL Albumin (3.5-5.0) g/dL Globulin (1.7-4.1) g/dL Albumin/Globulin Ratio (1.0-2.8) Procalcitonin (<0.5) ng/mL TSH (0.47-4.68) uIU/mL Prolactin (3.0-18.6) ng/mL Urine Color Urine Appearance Urine pH (4.5-8.0) Ur Specific [place] (1.000-1.035) Urine Protein (Negative) Urine Glucose (UA) (Negative) g/dL Urine Ketones (NEGATIVE) Urine Occult Blood (Negative) Urine Nitrate (Negative) Urine Bilirubin (NEGATIVE) Urine Urobilinogen (0.2) E.U./dL Ur Leukocyte Esterase (NEGATIVE) Urine RBC (0-5/HPF) Urine WBC (0-5/HPF) Ur Squamous Epith Cells (0-5/HPF) Urine Bacteria (None) Ur Culture Indicated? Salicylates (<20) mg/dL U Opiates 300ng/mL cut (Negative) Ur Oxycodone Screen (Negative) Urine Methadone Screen (Negative) Acetaminophen (10-30) ug/mL Ur Barbiturates Screen (Negative) U Tricyclic Antidepress (Negative) Ur Phencyclidine Scrn (Negative) Ur Amphetamines Screen (Negative) U Methamphetamines Scrn (Negative) Ur MDMA Scrn (Ecstasy) (Negative) U Benzodiazepines Scrn (Negative) Urine Cocaine Screen (Negative) U Marijuana (THC) Screen (Negative) Ethyl Alcohol ( - 10) mg/dL Chlamy pneumoniae PCR Not detected (Not Detect) Adenovirus (PCR) Not detected (Not Detect) B. pertussis DNA (PCR) Not detected (Not Detecte) B.parapertussis DNA PCR Not detected (Not Detecte) Coronavirus OC43 (PCR) Not detected (Not Detect) Coronavirus HKU1 (PCR) Not detected (Not Detect) Coronavirus 229E (PCR) Not detected (Not Detect) SARS-CoV-2 (PCR) Negative C Application Developer (Negative) Coronavirus NL63 (PCR) Not detected (Not Detect) Human Metapneumovir PCR Not detected (Not Detect) Influenza Type A (PCR) Not detected (Not Detect) Influenza Type B (PCR) Not detected (Not Detect) M. pneumoniae (PCR) Not detected (Not Detect) Parainfluenza 1 (PCR) Not detected (Not Detect) Parainfluenza 2 (PCR) Not detected (Not Detect) Parainfluenza 3 (PCR) Not detected (Not Detect) Parainfluenza 4 (PCR) Not detected (Not Detect) RSV (PCR) Not detected (Not Detect) Entero/Rhino (PCR) Not detected (Not Detect) Imaging Data Chest x-ray: Radiologist's Impression: PROCEDURE: XR CHEST 1V INDICATIONS: chest pain TECHNIQUE: One view of the chest was acquired. COMPARISON: [facility], CR, XR CHEST 1V, 08/22/2018, 15:58. FINDINGS: Surgical changes and devices: None. Lungs and pleura: No pleural effusions or pneumothorax. Retrocardiac dense consolidation. The right lung appears grossly clear, save for atelectasis. Mediastinum: Mediastinal contours appear normal. Heart size is normal. Bones and chest wall: No suspicious bony lesions. Overlying soft tissues ap pear unremarkable. IMPRESSION: New retrocardiac dense consolidation, concerning for left lower l obe pneumonia. Recommend radiographic follow-up to document resolution after treatment Dictated by: Fahad Bello M.D. on 11/17/2020 at 21:49 CT scan - head: Radiologist's Impression: PROCEDURE: CT HEAD/BRAIN WO CON INDICATIONS: falls on pradaxa TECHNIQUE: Noncontrast 4.5 mm thick angled axial sections acquired from the foramen magnum to the vertex, with coronal and sagittal reformats. For radiation dose reduction, the following was used: automated exposure control, adjustment of mA and/or kV according to patient size. COMPARISON: [facility], CT, CT HEAD/BRAIN WO CON, 11/14/2018, 16:40. FINDINGS: Image quality: Excellent. CSF spaces: Basal cisterns are patent. No extra-axial fluid collections. The ventricles are symmetric in size and shape. Brain: No intracranial bleeds or masses. There is cerebral volume loss for age, with resultant ventricular and sulcal prominence. There are periventricular and deep white matter chronic small vessel ischemic changes. There is intracranial internal carotid artery atherosclerosis. Skull and face: Calvarium and visualized facial bones appear intact, without suspicious lesions. Sinuses: Visualized sinuses and mastoids are clear. IMPRESSION: No acute intracranial process. Dictated by: Fahad Bello M.D. on 11/17/2020 at 21:43 CT - cervical spine: Radiologist's Impression: PROCEDURE: CT CERVICAL SPINE WO CON INDICATIONS: falls TECHNIQUE: Noncontrast 3 mm thick sections acquired from the skull base to the T4 level. Sagittal and coronal reformats were then constructed. For radiation dose reduction, the following was used: automated exposure control, adjustment of mA and/or kV according to patient size. [facility] [facility], [facility], CT HEAD/BRAIN WO CON, 11/17/2020, 21:11. FINDINGS: Image quality: Excellent. Bones: No definite acute fracture although diffuse osteopenia limits study sensitivity. Straightening of the normal lordotic curvature. Severe diffuse cervical disc space narrowing. Multilevel degenerative endplate sclerosis and spurring. Diffuse facet arthropathy. Grade 1 anterolisthesis of C2 on C3 and C3 on C4. Grade 1 retrolisthesis of C4 on C5. There is chronic osseous fusion of the C4-C6 vertebral bodies. Thoracic spondylosis also noted. Soft tissues: 1.6 cm nodule seen in the right upper lobe on image 50/2. Left pleural effusion with adjacent atelectasis partially visualized. IMPRESSION: No definite acute fracture. Severe cervical and thoracic spondylosis, and facet arthropathy as above. 1.6 cm right upper lobe nodule concerning for bronchogenic malignancy. Further evaluation could be performed with PET-CT and dedicated chest CT. Partially visualized left pleural effusion with adjacent atelectasis. Dictated by: Fahad Bello M.D. on 11/17/2020 at 21:44 Approved by: Fahad Bello M.D. on 11/17/2020 at 21:48 ECG Data Interpretation: Atrial fibrillation, rate [address] changes 2 pauses noted, right bundle branch block this is actually similar previous EKG in [address] changes. MDM Narrative Medical decision making narrative: The patient is found to have AFib with RVR. With signs of increased confusion concern for infection. She is found have leukocytosis of 18 lactic acid of 4 along with procalcitonin of 1.7. Chest x- ray does show pneumonia she has blood cultures pending. She is not a candidate for cardioversion due to underlying infectious etiology. She is given fluids and placed on diltiazem drip. Troponin is also elevated at 0.1 to 1 thought to be secondary to demand ischemia due to AFib with RVR and probable sepsis. Is not hypotensive in did not receive sepsis bolus. Garo BRADLEY updated patient's symptoms test results accepts patient Discharge Plan Departure Patient Disposition: Home Clinical Impression: Atrial fibrillation with rapid ventricular response, Sepsis, Pneumonia
--- NOTE | 2020-11-17 21:02 | DI.RAD.S_ITS ---
PROCEDURE: XR CHEST 1V INDICATIONS: chest pain TECHNIQUE: One view of the chest was acquired. COMPARISON: [facility], CR, XR CHEST 1V, 08/22/2018, 15:58. FINDINGS: Surgical changes and devices: None. Lungs and pleura: No pleural effusions or pneumothorax. Retrocardiac dense consolidation. The right lung appears grossly clear, save for atelectasis. Mediastinum: Mediastinal contours appear normal. Heart size is normal. Bones and chest wall: No suspicious bony lesions. Overlying soft tissues appear unremarkable. IMPRESSION: New retrocardiac dense consolidation, concerning for left lower lobe pneumonia. Recommend radiographic follow-up to document resolution after treatment Dictated by: Fahad Bello M.D. on 11/17/2020 at 21:49 Approved by: Fahad Bello M.D. on 11/17/2020 at 21:50
--- NOTE | 2020-11-17 21:17 | DI.CT.S_ITS ---
PROCEDURE: CT CERVICAL SPINE WO CON INDICATIONS: falls TECHNIQUE: Noncontrast 3 mm thick sections acquired from the skull base to the T4 level. Sagittal and coronal reformats were then constructed. For radiation dose reduction, the following was used: automated exposure control, adjustment of mA and/or kV according to patient size. COMPARISON: [facility], CT, CT HEAD/BRAIN WO CON, 11/17/2020, 21:11. FINDINGS: Image quality: Excellent. Bones: No definite acute fracture although diffuse osteopenia limits study sensitivity. Straightening of the normal lordotic curvature. Severe diffuse cervical disc space narrowing. Multilevel degenerative endplate sclerosis and spurring. Diffuse facet arthropathy. Grade 1 anterolisthesis of C2 on C3 and C3 on C4. Grade 1 retrolisthesis of C4 on C5. There is chronic osseous fusion of the C4-C6 vertebral bodies. Thoracic spondylosis also noted. Soft tissues: 1.6 cm nodule seen in the right upper lobe on image 50/2. Left pleural effusion with adjacent atelectasis partially visualized. IMPRESSION: No definite acute fracture. Severe cervical and thoracic spondylosis, and facet arthropathy as above. 1.6 cm right upper lobe nodule concerning for bronchogenic malignancy. Further evaluation could be performed with PET-CT and dedicated chest CT. Partially visualized left pleural effusion with adjacent atelectasis. Dictated by: Fahad Bello M.D. on 11/17/2020 at 21:44 Approved by: Fahad Bello M.D. on 11/17/2020 at 21:48
[2020-11-17 21:52] LABS: Add Manual Diff / Slide Review NO; Basophils Absolute Auto 100 /uL (0-100); Basophils Percent Auto 0.5 % (0-2); Eosinophils Absolute Auto 0 /uL (0-450); Eosinophils Percent Auto 0.1 % (2-4); Hematocrit 39.6 % (36-46); Hemoglobin 12.8 g/dL (12.0-16.0); Lymphocytes Absolute Auto 1100 /uL (1100-4500); Lymphocytes Percent Auto 6.1 % (25-40); Mean Corpuscular HGB Conc 32.4 % (30-36); Mean Corpuscular Hemoglobin 29.4 PG (26-34); Mean Corpuscular Volume 90.6 fL (80-100); Monocytes Absolute Auto 1000 /uL (0-900); Monocytes Percent Auto 5.5 % (3-14); Neutrophils Absolute Auto 15800 /uL (1500-7000); Neutrophils Percent Auto 87.8 % (50-75); Platelet Count 387 X10^3/uL (150-400); Red Blood Cell Count 4.38 X10^6/uL (4.0-5.2)
[2020-11-17 22:04] LABS: Acetaminophen < 10 ug/mL (10-30); Alanine Aminotransferase 19 IU/L (<35); Albumin 3.8 g/dL (3.5-5.0); Albumin Globulin Ratio 1.4 (1.0-2.8); Alkaline Phosphatase 300 U/L (38-126); Aspartate Aminotransferase 38 IU/L (14-36); BUN Creatinine Ratio 21.8 (6-22); Bilirubin Total 0.8 mg/dL (0.2-1.3); Blood Urea Nitrogen 22 mg/dL (7-17); Calcium 10.5 mg/dL (8.4-10.2); Carbon Dioxide 29 mmol/L (22-32); Chloride 98 mmol/L (98-107); Creatine Kinase 54 U/L (30-135); Estimated Glomerular Filt Rate 52.9 mL/min (>60); Ethanol (ETOH) 52 mg/dL; Globulin 2.7 g/dL (1.7-4.1); Glucose 118 mg/dL (80-110); HEMOLYSIS < 15 (0-50); Potassium 2.9 mmol/L (3.4-5.1); Salicylate < 1.0 mg/dL (<20); Sodium 136 mmol/L (137-145); Total Protein 6.5 g/dL (6.3-8.2)
[2020-11-17 22:20] LABS: Procalcitonin 1.77 ng/mL (<0.5); Prolactin 42.4 ng/mL (3.0-18.6)
[2020-11-17 22:24] LABS: Troponin I 0.121 ng/mL (0.01-0.034)
[2020-11-17] MEDS: SODIUM CHLORIDE 0.9% 1,000 ML 150 ML IV (22:49)
[2020-11-17] MEDS: dilTIAZem 125 MG in SODIUM CHLORIDE 0.9% 100 ML IV (22:56)
[2020-11-17 22:59] LABS: Bilirubin Urine UA NEGATIVE (NEGATIVE); Color Urine UA YELLOW; Glucose Urine UA NEGATIVE (Negative); Ketones Urine UA NEGATIVE (NEGATIVE); Leukocyte Esterase Urine UA TRACE (NEGATIVE); Nitrite Urine UA NEGATIVE (Negative); Occult Blood Urine UA 3+ (Negative); Protein Urine UA 2+ (Negative); Urobilinogen Urine UA 0.2 E.U./dL (0.2)
[2020-11-17 23:09] LABS: Appearance Urine UA Cloudy
[2020-11-17 23:10] LABS: UR Morphine/Opiate cutoff 300 Negative (Negative); Ur Creatinine 20 (Normal); Urine Amphetamines Negative (Negative); Urine Barbiturates Negative (Negative); Urine Benzodiazepines Negative (Negative); Urine Cocaine Negative (Negative); Urine MDMA Negative (Negative); Urine Methadone Negative (Negative); Urine Methamphetamines Negative (Negative); Urine Oxycodone Negative (Negative); Urine Phencyclidine Negative (Negative); Urine Tetrahydrocannabinol Negative (Negative); Urine Tricyclic Antidepressant Negative (Negative); Urine pH 7 (Normal)
[2020-11-17] MEDS: PIPERACILLIN/TAZO 4.5 GM in SODIUM CHLORIDE 0.9% 100 ML 200 ML IV (23:19)
[2020-11-17] MEDS: SODIUM CHLORIDE 0.9% 1,000 ML 1000 ML IV (23:21)
[2020-11-17 23:36] LABS: Bacteria Urine Occasional (0-1); RBC Urine >100/HPF (0-5/HPF); Squamous Epithelial Cell Urine 0-1 /HPF (0-5/HPF); WBC Urine 0-1/HPF (0-5/HPF)
[2020-11-17 23:37] LABS: Culture Indicated Urine Specimen Cultured
[2020-11-17 23:45] LABS: Reflexed Lactate in 2 Hours Y
[2020-11-17] MEDS: POTASSIUM CHLORIDE IN WATER 10 MEQ/100 ML PIGGYBACK 100 MEQ IV (23:47)
[2020-11-17 23:56] LABS: Thyroid Stimulating Hormone 2.27 uIU/mL (0.47-4.68)
[2020-11-18] VITALS (27 sets, daily range): BP systolic 117–182; BP diastolic 59–98; PULSE 56–135; RESP 14–44; TEMP 36.2–37.2; O2SAT 94–99; BMI 17.7
[2020-11-18] MEDS: dilTIAZem CD 120 MG CAP PO (00:15)
--- NOTE | 2020-11-18 00:15 | PM.HP.1 ---
History of Present Illness History of Present Illness Date Patient Seen: 11/18/20 Time Patient Seen: 00:16 Chief complaint: Change of mental status Narrative: Griselda Helton is a 80-year-old female patient with a history that is significant for rheumatoid arthritis on immunosuppressive therapy,dementia, hypertension, atrial fibrillation, gastroesophageal reflux and levoscoliosis of the thoracic lumbar spine who was brought in today by her for confusion over the last 2 weeks, and 3 falls the last 2 days, 1 resulting in the loss of consciousness. The patient's spouse provides the predominant amount of information for the HPI & ROS as patient is a poor historian and has dementia. He states that the patient hit her head today with loss of consciousness and was unresponsive, he contacted EMS, and when she left on the ambulance she continued to be unresponsive. When he arrived in the ED she was responsive but confused, but states upon admit to the floor that she has returned to her normal baseline. The patient denies chest pain, shortness of breath, fever, chills, headache, hematuria, melena, changes in vision, new weakness, numbness, tingling, difficulty with swallowing. The spouse reports that the patient began having greater confusion approximately 2 weeks ago and difficulty with balance and ambulation and started to fall frequently. Patient's vitals upon admit she is afebrile with a temp 98.7?, the beginnings of hypotension with a BP of 109/78 (in ER patient had been 139/59-135/108), patient's has had uncontrolled atrial fibrillation with RVR, HR 140, placed on a diltilizem drip in ED, tachypneic RR 28, O2 saturation 96% on room air. Patient has an elevated white count 18, neutrophils# 15,800, lactate 4.0, procalcitonin 1.77, sofa: 3. Patient's sodium 136, BUN 22, potassium hypokalemia 2.9, glucose 118, AST 38, alk-phos 300, patient also had elevated troponin of 0.121. Patient's urine was cloudy with positive protein and blood sent for culture, tox screen was positive for EtOH of 52. I personally reviewed patient's EKG which demonstrated atrial fibrillation with RVR rate 103, right bundle-branch block. Patient's chest x-ray demonstrated new retrocardiac dense consolidation, concerning for left lower lobe pneumonia. Patient's cervical CT demonstrated no definite acute fracture. Positive severe cervical and thoracic spondylosis, and facet arthropathy. A 1.6 cm right upper lobe nodule concerning for bronchogenic malignancy. Partially visualized left pleural effusion with adjacent atelectasis. Patient admitted for left lower lobe pneumonia with sepsis, encephalopathy, atrial fibrillation with RVR, and hypokalemia. Patient History Medical History (Updated 11/18/20 @ 03:27 by Leslie Burns DO) Atrial fibrillation Dementia Gastroesophageal reflux Hypertension Immunodeficiency due to treatment with immunosuppressive medication Osteoarthritis Rheumatoid arthritis Scoliosis Surgical History History of spinal surgery Family & Social History Social History: household members spouse,children Safety & Behavioral: Feels Safe in Current Yes Environment Tobacco & Substance use: Smoking Status Former smoker alcohol intake current alcohol intake frequency 0-2 drinks per day Substance Use Type does not use Meds Home Medications and Allergies Home Medications Medication Instructions Recorded Confirmed Type folic acid 1 mg tablet 1 mg PO BID #0 08/03/09 11/14/18 History prednisone 5 mg tablet 5 mg PO DAILY #0 09/17/16 11/14/18 History tramadol 50 mg tablet 50 - 100 mg PO Q6H PRN #0 09/17/16 11/14/18 History ranitidine HCl 150 mg tablet 150 mg PO BEDTIME #0 01/09/17 11/14/18 History citalopram 20 mg tablet 20 mg PO DAILY 08/22/18 11/14/18 History cyanocobalamin (vitamin B-12) 1,000 mcg PO DAILY 08/22/18 11/14/18 History 1,000 mcg tablet (Vitamin B-12) hydroxychloroquine 200 mg tablet 200 mg PO DAILY 08/22/18 11/14/18 History losartan 50 mg tablet 50 mg PO DAILY 08/22/18 11/14/18 History methotrexate sodium 2.5 mg tablet 15 mg PO TH 08/22/18 11/14/18 History multivitamin-calcium, 1 tab PO DAILY 08/22/18 11/14/18 History [id number] isoflavone 400 mcg-60 mg tablet (One-A-Day Menopause Formula) omeprazole 20 mg capsule,delayed 20 mg PO DAILY 08/22/18 11/14/18 History release dabigatran etexilate 150 mg 150 mg PO BID #60 cap 08/25/18 Rx capsule (Pradaxa) CoQ-10 1,000 mg PO DAILY 11/14/18 11/14/18 History Diet Manage 1 dose PO DAILY 11/14/18 11/14/18 History ascorbic acid (vitamin C) 500 mg 500 mg PO DAILY 11/14/18 11/14/18 History capsule,extended release (Vitamin C) cholecalciferol (vitamin D3) 50 2,000 unit PO DAILY 11/14/18 11/14/18 History mcg (2,000 unit) tablet (Vitamin D3) diltiazem HCl 120 mg 120 mg PO DAILY 11/14/18 History capsule,extended release 24 hr (Cartia XT) donepezil 10 mg tablet 10 mg PO DAILY 11/14/18 History ferrous sulfate 142 mg (45 mg 142 mg PO DAILY 11/14/18 11/14/18 History iron) tablet,extended release mupirocin 2 % topical ointment 1 applic TOPICAL BEDTIME 11/14/18 11/14/18 History omega 5-qdf-jwq-fish oil 1,000 mg 2,000 mg PO DAILY 11/14/18 11/14/18 History (120 mg-180 mg) capsule (Fish Oil) prednisone 10 mg tablets in a dose See Rx Instructions .ROUTE 11/14/18 Rx pack .COMPLEX #21 each Allergies Allergy/AdvReac Type Severity Reaction Status Date / Time lisinopril [LISINOPRIL] AdvReac Unknown COUGH Verified 11/17/20 21:25 Review of Systems Review of Systems Narrative: All 12 point systems reviewed with the patient and are negative except otherwise documented. Exam Vital Signs (past 8 hours): - 11/17/20 21:25 11/17/20 21:44 11/17/20 22:00 Temperature 98.7 F Pulse Rate 128 H 139 H 142 H Respiratory Rate 20 27 H 28 H Blood Pressure 138/59 L 138/59 L 138/59 L Pulse Oximetry 98 95 96 11/17/20 22:30 11/17/20 22:56 11/17/20 23:00 Temperature Pulse Rate 144 H 144 H 137 H Respiratory Rate 25 H 21 Blood Pressure 109/78 118/78 Pulse Oximetry 96 96 97 11/17/20 23:30 11/18/20 00:00 Temperature Pulse Rate 131 H 124 H Respiratory Rate 30 H 22 Blood Pressure 135/108 H 134/85 Pulse Oximetry 95 96 Oxygen Delivery Method Room Air Narrative Exam Narrative: General: Elderly thin frail female laying in bed, in no acute distress. HEENT: Normocephalic, atraumatic. External ears without defect. Pupils equal, round, and reactive to light. Anicteric sclerae, moist conjunctivae, and no lid lag. Poor dentition, mucosa membranes are dry Neck: Supple with full range of motion. No lymphadenopathy or thyromegaly. Cardiovascular: Irregular rate and rhythm without murmurs, rubs, or gallops appreciated. Pulmonary: Clear to auscultation bilaterally without crackles, wheezes, or rhonchi. Normal respiratory effort with no use of accessory muscles. Abdomen: Soft, scaphoid, bowel sounds hypoactive x4, nontender, nondistended. No hepatosplenomegaly or masses appreciated. Extremities: No clubbing, cyanosis, or edema. Extremities x4 are covered in multiple varied levels of healing of bruises and abrasions. No signs of current infection. Skin: Normal temperature, decreased turgor, and texture; no rash, ulcers, or subcutaneous nodules appreciated. Neurological: Cranial nerves grossly intact. Psychiatric: Normal mood and affect. cognitive impairment vs. dementia with short-term memory recall deficit. Objective Labs Result Diagrams: 11/17/20 21:35 11/17/20 21:35 Labs: Laboratory Results - last 24 hr 11/17/20 11/17/20 11/17/20 21:35 21:35 21:35 WBC 18.0 H RBC 4.38 Hgb 12.8 Hct 39.6 MCV 90.6 MCH 29.4 MCHC 32.4 RDW 16.0 H Plt Count 387 Neut % (Auto) 87.8 H Lymph % (Auto) 6.1 L [place] % (Auto) 5.5 Eos % (Auto) 0.1 L Baso % (Auto) 0.5 Neut # (Auto) 60563 H Lymph # (Auto) 1100 [place] # (Auto) 1000 H Eos # (Auto) 0 Baso # (Auto) 100 Sodium 136 L Potassium 2.9 L Chloride 98 Carbon Dioxide 29 BUN 22 H Creatinine 1.01 Estimated GFR 52.9 L BUN/Creatinine Ratio 21.8 Glucose 118 H Lactate 4.0 H Calcium 10.5 H Total Bilirubin 0.8 AST 38 H ALT 19 Alkaline Phosphatase 300 H Total Creatine Kinase 54 CK-MB (CK-2) TNP CK-MB (CK-2) Rel Index TNP Troponin I 0.121 H* Total Protein 6.5 Albumin 3.8 Globulin 2.7 Albumin/Globulin Ratio 1.4 Procalcitonin 1.77 H TSH Prolactin 42.4 H Urine Color Urine Appearance Urine pH Ur Specific [place] Urine Protein Urine Glucose (UA) Urine Ketones Urine Occult Blood Urine Nitrate Urine Bilirubin Urine Urobilinogen Ur Leukocyte Esterase Urine RBC Urine WBC Ur Squamous Epith Cells Urine Bacteria Ur Culture Indicated? Salicylates < 1.0 U Opiates 300ng/mL cut Ur Oxycodone Screen Urine Methadone Screen Acetaminophen < 10 L Ur Barbiturates Screen U Tricyclic Antidepress Ur Phencyclidine Scrn Ur Amphetamines Screen U Methamphetamines Scrn Ur MDMA Scrn (Ecstasy) U Benzodiazepines Scrn Urine Cocaine Screen U Marijuana (THC) Screen Ethyl Alcohol 52 H 11/17/20 11/17/20 11/17/20 21:35 22:39 22:39 WBC RBC Hgb Hct MCV MCH MCHC RDW Plt Count Neut % (Auto) Lymph % (Auto) [place] % (Auto) Eos % (Auto) Baso % (Auto) Neut # (Auto) Lymph # (Auto) [place] # (Auto) Eos # (Auto) Baso # (Auto) Sodium Potassium Chloride Carbon Dioxide BUN Creatinine Estimated GFR BUN/Creatinine Ratio Glucose Lactate Calcium Total Bilirubin AST ALT Alkaline Phosphatase Total Creatine Kinase CK-MB (CK-2) CK-MB (CK-2) Rel Index Troponin I Total Protein Albumin Globulin Albumin/Globulin Ratio Procalcitonin TSH 2.27 Prolactin Urine Color Yellow Urine Appearance Cloudy Urine pH 7.0 Ur Specific [place] 1.010 Urine Protein 2+ H Urine Glucose (UA) Negative Urine Ketones Negative Urine Occult Blood 3+ H Urine Nitrate Negative Urine Bilirubin Negative Urine Urobilinogen 0.2 Ur Leukocyte Esterase Trace H Urine RBC >100/hpf H Urine WBC 0-1/hpf Ur Squamous Epith Cells 0-1 /hpf Urine Bacteria Occasional (0-1) Ur Culture Indicated? Specimen cultured Salicylates U Opiates 300ng/mL cut Negative Ur Oxycodone Screen Negative Urine Methadone Screen Negative Acetaminophen Ur Barbiturates Screen Negative U Tricyclic Antidepress Negative Ur Phencyclidine Scrn Negative Ur Amphetamines Screen Negative U Methamphetamines Scrn Negative Ur MDMA Scrn (Ecstasy) Negative U Benzodiazepines Scrn Negative Urine Cocaine Screen Negative U Marijuana (THC) Screen Negative Ethyl Alcohol Assessment & Plan Assessment & Plan narrative: Griselda Helton is a 80-year-old female patient with a history that is significant for rheumatoid arthritis on immunosuppressive therapy,dementia, hypertension, atrial fibrillation, gastroesophageal reflux and levoscoliosis of the thoracic lumbar spine Patient admitted for left lower lobe pneumonia with sepsis, encephalopathy, atrial fibrillation with RVR, and hypokalemia, after failing out patient management. 1. Sepsis, acute, secondary to left lower lobe pneumonia with encephalopathy, and resulting hyperkalemia, acute, present on admission -patient with positive infection markers including lactate 4.0, procalcitonin of 1.77, leukocytosis at 18, neutrophils# 15,800. SOFA:3, curb 65: 3 severe risk of mortality in community-acquired pneumonia in-patient. -potassium 2.9, GFR 52.9, BP 109/78 down from 135/108, HR 140, R 28 -1 impaired mental status/encephalopathy 2. developing Hypotension 3. Monitor for Decreased urine output less than 50 cc/hour. -monitor airway, Blood pressure, JVD, urine output, lactate, H&H, septic shock -admitted on telemedicine, IV access x2 18-16 gauge, antiemetics for nausea and vomiting, Blood pressure, JVD, urine sodium, urine output, lactate, H&H. -patient fluid resuscitated with 1 L of normal saline with continue decreasing blood pressure 109/78. Ordered additional 1 L bolus will evaluate after completion. -repeat lactic acid, procalcitonin, CBC, CMP in the a.m. -meds: Rocephin 1 g Q 24 hours, azithromycin 500 mg orally q.day, prednisone 40 mg q.day x5 days. 2. Elevated troponin, likely due to pneumonia, acute, present on admission -troponin 1.# 0.121, trend x2 -patient on telemedicine, monitor for ACS, DC, acute respiratory failure, respiratory distress 3. Paroxysmal Atrial fibrillation with RVR, acute on chronic, present on admission -patient with history of atrial fibrillation developed atrial fibrillation with RVR in the emergency department with heart rate in 140s. -patient placed on diltiazem IV drip. -patient remains irregularly irregular on exam with atrial fibrillation on monitor, no chest pain or shortness of breath -continue PO metoprolol,once patient off drip. Rouvastatin -continue patient's Pradaxa 4. Essential Hypertension, acute on chronic present on admission uncontrolled -patient was hypertensive in ED 135/57, 135/108, upon admit patient began developing hypotension with a BP decreased to 109/78-after receiving 1 L bolus NS -continue losartan until blood pressure improves. 5. Rheumatoid arthritis, chronic, present on admission-control unknown -rheumatoid arthritis bilateral hands with resulting joint deformities -patient on prednisone, and methotrexate which are held. 6. Dementia, acute on chronic, present on admission -continue patient's citalopram and Aricept Codestatus: DNR Surrogate decision maker: Greg Helton spouse COVID PCR: Negative COVID vaccination: [employer] June 2020 DVT/VTE prophylaxis: Patient on Pradaxa, SCDs only Estimated length of stay:The patient is admitted to the hospital related to the severity progression of her symptoms failing outpatient treatment and potential risk for complications. She is admitted as inpatient with expected length of stay greater than 2 midnights. I have utilized all available immediate resources to obtain, update, or review the patient's current medications. I confirmed that the patient's advanced care plan is present, Code status is documented and/or surrogate decision maker is listed in the patient's medical record. Scores GCS Pratts coma scale eye opening: Spontaneous Junior coma scale verbal response: Confused Pratts coma scale motor response: Localising Junior coma scale total score: 13
[2020-11-18 00:33] LABS: COVID19 - ADMIT (NP swab/PCR) Negative (Negative)
[2020-11-18 00:36] LABS: Magnesium 1.7 mg/dL (1.6-2.3)
[2020-11-18 00:53] LABS: Lactate 2HR (Lactic Acid Rflx) 1.6 mmol/L (0.7-2.1)
[2020-11-18 01:06] LABS: NT-proBNP (BNP-Adult 18+) 3610 pg/mL (<450)
[2020-11-18 01:10] LABS: D Dimer 673 ng/mL (<230)
[2020-11-18 01:10] LABS: Troponin I 0.336 ng/mL (0.01-0.034)
[2020-11-18] MEDS: POTASSIUM CHLORIDE IN WATER 10 MEQ/100 ML PIGGYBACK 100 MEQ IV ×3 (01:15→03:40)
[2020-11-18 01:39] LABS: Adenovirus Not Detected (Not Detect); B. parapertussis Not Detected (Not Detecte); Bordetella pertussis Not Detected (Not Detecte); Chlamydophila pneumoniae Not Detected (Not Detect); Coronavirus HKU1 Not Detected (Not Detect); Coronavirus NL 63 Not Detected (Not Detect); Coronavirus OC43 Not Detected (Not Detect); Human Metapneumovirus Not Detected (Not Detect); Human Rhinovirus/Enterovirus Not Detected (Not Detect); Influenza A Not Detected (Not Detect); Influenza B Not Detected (Not Detect); Mycoplasma pneumoniae Not Detected (Not Detect); Parainfluenza Virus 1 Not Detected (Not Detect); Parainfluenza Virus 2 Not Detected (Not Detect); Parainfluenza Virus 3 Not Detected (Not Detect); Parainfluenza Virus 4 Not Detected (Not Detect); Respiratory Syncytial Virus Not Detected (Not Detect)
[2020-11-18 01:42] LABS: Coronavirus 229E Not Detected (Not Detect)
[2020-11-18 02:20] LABS: C-Reactive Protein Quant 1.2 mg/dL (<1.0)
[2020-11-18] MEDS: MELATONIN 3 MG TABLET 6 MG PO ×2 (04:12→21:12)
[2020-11-18] MEDS: cefTRIAXone 1,000 MG in SODIUM CHLORIDE 0.9% 100 ML 200 ML IV (05:10)
[2020-11-18 07:00] LABS: INR 1.3 (0.9-1.3)
[2020-11-18 07:03] LABS: PTT Partial Thromboplastin Tim 49 SECONDS (26.4-36.2)
[2020-11-18 07:05] LABS: Alanine Aminotransferase 17 IU/L (<35); Albumin Globulin Ratio 1.2 (1.0-2.8); Alkaline Phosphatase 261 U/L (38-126); Aspartate Aminotransferase 39 IU/L (14-36); BUN Creatinine Ratio 28.6 (6-22); Bilirubin Total 0.6 mg/dL (0.2-1.3); Blood Urea Nitrogen 20 mg/dL (7-17); Calcium 8.4 mg/dL (8.4-10.2); Carbon Dioxide 26 mmol/L (22-32); Chloride 104 mmol/L (98-107); Estimated Glomerular Filt Rate > 60.0 mL/min (>60); Globulin 2.5 g/dL (1.7-4.1); Glucose 90 mg/dL (80-110); HEMOLYSIS < 15 (0-50); Potassium 3.4 mmol/L (3.4-5.1); Sodium 135 mmol/L (137-145); Total Protein 5.5 g/dL (6.3-8.2)
[2020-11-18 07:11] LABS: Add Manual Diff / Slide Review NO; Basophils Absolute Auto 100 /uL (0-100); Basophils Percent Auto 0.4 % (0-2); Eosinophils Absolute Auto 0 /uL (0-450); Eosinophils Percent Auto 0.1 % (2-4); Hematocrit 34.6 % (36-46); Hemoglobin 11.5 g/dL (12.0-16.0); Lactate (Lactic Acid) 1.2 mmol/L (0.7-2.1); Lymphocytes Absolute Auto 1700 /uL (1100-4500); Lymphocytes Percent Auto 8.8 % (25-40); Mean Corpuscular HGB Conc 33.2 % (30-36); Mean Corpuscular Hemoglobin 30.1 PG (26-34); Mean Corpuscular Volume 90.8 fL (80-100); Monocytes Absolute Auto 1500 /uL (0-900); Monocytes Percent Auto 7.9 % (3-14); Neutrophils Absolute Auto 16000 /uL (1500-7000); Neutrophils Percent Auto 82.8 % (50-75); Platelet Count 315 X10^3/uL (150-400); Red Blood Cell Count 3.81 X10^6/uL (4.0-5.2); Red Cell Distribution Width 16.2 % (11.6-14.8); White Blood Cell Count 19.4 X10^3/uL (4.5-11.0)
--- NOTE | 2020-11-18 07:34 | DI.ECHO.S_ITS ---
[facility] +---------+ [facility] +---------+ : : [address] : : : : [id number] : : : : Phone: [phone]---------+ Echocardiogram Report + + :Name: LORENA YOUNGER Study Date: 11/18/2020 Height: 58 in : :[facility] ReadingLocation: Weight: 84 lb : : Gender: Female BSA: 1.3 m2 : :: 1940 Age: 80 yrs BP: 146/76 mmHg: :Reason For Study: ELEVATED TROPONIN : :Ordering Physician: DEANNA, : :JUAN Performed By: Ameena Camacho : :Referring: JUAN HUERTA : + + Interpretation Summary Borderline concentric left ventricular hypertrophy with ejection fraction 65- 70%. Severely dilated left atrium. Moderately dilated right atrium. The aortic valve is mildly calcified with minimally reduced leaflet mobility. Mild aortic regurgitation. The mitral valve leaflets are slightly calcified. Mild to moderate mitral regurgitation. Moderate tricuspid regurgitation. The right ventricular systolic pressure is estimated to be at least 36 mmHg based on an estimated right atrial pressure of 3 mm Hg. Comparison is made with the echocardiogram of 01/06/2019, LV wall thickness has increased. Procedure: A two-dimensional transthoracic echocardiogram with color flow and Doppler was performed. The study quality was technically adequate. Comparison is made with the echocardiogram of 01/06/2019. The heart rate ranged between 56-82 bpm during the study. Left Ventricle: There is borderline concentric left ventricular hypertrophy. The ejection fraction is estimated to be 65-70%. There are no focal wall motion abnormalities. Right Ventricle: The right ventricle is normal in size and function. Atria: The left atrium is severely dilated. The right atrium is moderately dilated. There is no Doppler evidence for an interatrial shunt. Mitral Valve: The mitral valve leaflets appear mildly thickened, but open well. The mitral valve leaflets are slightly calcified. There is mild to moderate mitral regurgitation. Aortic Valve: The aortic valve is mildly calcified. There is minimally reduced leaflet mobility. There is no aortic valve stenosis. There is mild aortic regurgitation. Tricuspid Valve: There is mild tricuspid valve prolapse. There is moderate tricuspid regurgitation. The right ventricular systolic pressure is estimated to be at least 36 mmHg based on an estimated right atrial pressure of 3 mm Hg. Pulmonic Valve: The pulmonic valve is not well visualized. There is no pulmonic valvular regurgitation. Great Vessels: The aortic root is normal size. The dimensions of the ascending aorta are normal. The IVC is of normal diameter and collapses greater than 50% with a sniff. This suggests a low right atrial pressure of 3 mm Hg. Pericardium/ Pleura There is no pericardial effusion. There is a pleural effusion present. MMode/2D Measurements & Calculations LVIDd: 4.0 cm LVOT diam: 1.9 cm LVIDs: 2.6 cm Ao root diam: 2.8 cm FS: 35.7 % asc Aorta Diam: 3.2 cm IVSd: 1.1 cm Ao Arch Diam (Prox Trans): 2.5 cm LVPWd: 0.93 cm LV salazar. diameter/BSA (cm/m^2): 3.2 LV sys. diameter/BSA (cm/m^2): 2.1 LA A2 area: 26.4 cm2 RA long axis: 5.2 cm LA A4 area: 18.0 cm2 RA area: 17.7 cm2 LA length (vol): 5.5 cm RA vol: 51.1 ml LA vol: 73.7 ml RA : 40.5 ml/m2 LA vol index: 58.5 ml/m2 IVC diam: 0.85 cm RVD1 (basal): 2.8 cm TAPSE: 1.8 cm Doppler Measurements & Calculations Ao V2 max: 179.6 cm/sec LVOT Max Kvng: 95.3 cm/sec Ao V2 mean: 123.2 cm/sec LV V1 max P.6 mmHg Ao max P.9 mmHg LV V1 VTI: 22.5 cm Ao mean P.9 mmHg CARRIE(I,D): 1.6 cm2 Ao V2 VTI: 38.9 cm CARRIE(V,D): 1.4 cm2 sev ratio: 0.58 CARRIE indexed to BSA (cm^2/m^2): 1.2 MV E max kvng: 101.4 cm/sec TR max kvng: 285.5 cm/sec MV A max kvng: 53.5 cm/sec TR max P.6 mmHg MV E/A: 1.9 PA V2 max: 91.1 cm/sec Med Peak E' Kvng: 4.1 cm/sec PA V2 mean: 59.5 cm/sec E/E' med: 24.7 PA mean P.7 mmHg Lat Peak E' Kvng: 5.3 cm/sec PA pr(Accel): 32.8 mmHg E/E' lat: 19.1 E/e' average: 21.9 MV dec time: 0.30 sec SV(LVOT): 60.7 ml Electronically signed by: Gabriella vance Yeoman Physician:11/18/2020 09:19 AM
[2020-11-18] MEDS: MEROPENEM 500 MG in SODIUM CHLORIDE 0.9% 100 ML 200 ML IV ×2 (09:11→19:19)
[2020-11-18] MEDS: predniSONE 5 MG TABLET PO (09:12)
[2020-11-18] MEDS: ASPIRIN 325 MG TABLET PO (09:12)
[2020-11-18] MEDS: DABIGATRAN 75 MG CAPSULE 150 MG PO ×2 (09:12→21:12)
[2020-11-18] MEDS: METOPROLOL ER 25 MG TABLET PO ×2 (09:33→21:12)
--- NOTE | 2020-11-18 13:34 | CM.DANOTE ---
Addendum entered by MARVIN Trevino 11/18/20 15:25: * not [facility] but [facility] SNF reviewing. BF Addendum entered by MARVIN Trevino 11/18/20 15:04: ADD: PT/OT notes still not available but therapies will be attempting to work with pt today. SW met with pt's spouse bedside and explained role and pt sleeping and spouse confirms that they live at home and currently no other supportive services in place. Living Will/POLST/DPOA completed but spouse had appointment set up with PCP to update the POLST form and make sure all documents are up to date. Spouse is pt's DPOA. Pt has no hx of SNF or HH and spouse is anticipating SNF at d/c as pt has become increasingly weak over the past few days and spouse needing hip surgery himself and therefore limited in his physical assist. Spouse anticipates need for SNF prior to safe return home. SW provided the SNF Choice List and discussed need for likely a [employer] Contracted SNF facility. Spouse preference would be a SNF closest to their home in [place] but is agreeable to [facility] or [facility] if needed as SW discussed many SNF's have limited bed availability right now and he acknowledged understanding. Spouse agreeable with SW making SNF referrals to determine which can possibly accept and begin to work on insurance SNF auth. SW confirmed that [facility] and [facility] are not contracted with pt's specific [employer] plan. SW called [facility] and [facility] in [facility] and they are willing to review and awaiting PT/OT notes to be available in the computer. Admissions Shirley at [facility] has computer access and therefore no clinicals need to be faxed. SW faxed initial clinicals to [facility] to review and will fax PT/OT notes when available. PASRR completed. BF Original Note: Patient is a 80 yo female who was admitted on 11/17/20 for AMS/GLF. Pt has [employer] MCR ADV and her PCP is Dr. Aishwarya Richard. EMR was reviewed. Per MD, pt with hx of arthritis, AFIB and dementia+. Pt admitted after GLF with loss of consciousness and AMS with ETOH of 52 and now has left lower lobe pneumonia with sepsis, encepholapathy and AFIB. Pt was COVID vaccinated in June 2020. PT/OT ordered and pending. Per RN, pt fairly confused and may be baseline or slightly below baseline and spouse was bedside early this morning but not now. SW attempted to call spouse to gather historical information as pt has dementia and left spouse message. No return call yet from spouse and still not bedside. Pt was last admitted in 2019 for cellulitis and was able to d/c home with spouse and oral abx and outpt Wound Care at [facility]. Plan: SW to follow closely for PT/OT eval and recommendations to determine if SNF needed at d/c (would need to get [employer] auth for SNF) vs return home with spouse and HH. SW to follow for assessment with spouse for d/c planning discussion. MARVIN Trevino Discharge Planning/Care Management CM Discharge Assessment Start: 11/18/20 13:32 Freq: Status: Active Protocol: Document 11/18/20 13:32 BF (Rec: 11/18/20 13:34 BF [id number]) Discharge Planning Assessment Assigned Protection Manager MARVIN Solares DPOA/Assigned Designee Name spouse Greg Contact Information [phone] Advance Directives? Yes Advance Directives on File unknown History Provided By Patient,Significant Other, Medical Record Has Patient been admitted in last 30 No days? Prior Living Arrangements House Household Members spouse,children Type of transporation used prior to Relies on Others admit Independent with ADL's Yes: somewhat Is patient alert and oriented? Yes: somewhat, dementia at baseline Needs Assistance With Managing Medications,Home Chores / Shopping Caregiver for Another No Comment She stated that she does not always use Comment Pending PT/OT eval and recommendations Barriers to Discharge No Discharge Plan Home with Home Health Transportation Arrangement Spouse Additional Comment Pending PT/OT eval and recommendations Whiteboard Updated in Patient Room with Yes name and ext. # of Protection Manager Review Status In Process Please Provide Date Initial DC 11/18/20 Assessment Was Performed Next Review Type Continued Stay Review
--- NOTE | 2020-11-18 13:49 | PC.NURSE ---
Addendum entered by Yan Figueroa R.N. 11/18/20 14:50: Troponin noted at 0.420, Dr. Wheeler notified. Addendum entered by Yan Figueroa R.N. 11/18/20 14:37: Called lab again as troponin result not in yet, lab states they will call me back with result. Original Note: Follow up with lab regarding pending am troponin level that did not result. Lab notified, this RN will follow, lab states it will be about 20 minutes for result. notified, no new orders received at this time.
--- NOTE | 2020-11-18 13:52 | OT.IP.EVAL ---
Past Medical History (Last Reviewed 11/18/20 @ 05:39 by Leslie Burns DO) Atrial fibrillation Dementia Gastroesophageal reflux History of spinal surgery Hypertension Immunodeficiency due to treatment with immunosuppressive medication Osteoarthritis Rheumatoid arthritis Scoliosis Surgical History (Last Reviewed 11/18/20 @ 05:39 by Leslie Burns DO) History of spinal surgery Occupational Therapy Inpatient Evaluation/Re-Eval M1 PT/OT-IP Prior Functional Status Start: 11/18/20 11:38 Freq: NEEDED Status: Active Protocol: Document 11/18/20 17:38 CGR (Rec: 11/18/20 17:57 CGR [id number]) Medical Review Prior Functional Status Medical History Reviewed Yes Communication Pt has dementia at baseline and is a poor historian during this encounter. She is able to follow single step commands but occasionally needs repeat requests. Mobility and Gait Per pt's spouse, pt is typically ambulatory using 4WW up to ~40 feet. She does not often leave the house since her sitting tolerance is limited and she does not do well in a car. Activities of Daily Living and IADL's Pt's spouse states she is independent with dressing and toileting tasks. She has SBA for showers. She is limited in her ability to manipulate objects due to RA affecting both hands. Prior Functional Level (Other details) Pt has fallen at least three times in the past two weeks. She has a history of frequent falls. Social History Household Members spouse,children Living Arrangements House Number of Floors (Floors) Two Floors Number of Stairs To Enter/Railing? 6 steps in to landing of split level home with wide bilateral rails. Once inside, pt climbs another 8 steps to the main level using unilateral rail and SPC in opposite hand. Pt stays on the main level and rarely leaves the house. Home Environment High Toilet,Walk in Shower,Tub /Shower,Built-In Shower Seat Home Equipment Four Wheel Walker,Straight Cane,Hand Held Shower,Grab Bars Near Toilet,Grab Bars In Shower Employment Status Retired Additional Social History Comment Pt lives in [place] with her spouse, Erasto. M1 PT/OT-IP Prior Functional Status Start: 11/18/20 17:38 Freq: NEEDED Status: Active Protocol: Document 11/18/20 17:38 CGR (Rec: 11/18/20 17:57 CGR [id number]) Medical Review Prior Functional Status Medical History Reviewed Yes Communication Pt has dementia at baseline and is a poor historian during this encounter. She is able to follow single step commands but occasionally needs repeat requests. Mobility and Gait Per pt's spouse, pt is typically ambulatory using 4WW up to ~40 feet. She does not often leave the house since her sitting tolerance is limited and she does not do well in a car. Activities of Daily Living and IADL's Pt's spouse states she is independent with dressing and toileting tasks. She has SBA for showers. She is limited in her ability to manipulate objects due to RA affecting both hands. Prior Functional Level (Other details) Pt has fallen at least three times in the past two weeks. She has a history of frequent falls. Social History Household Members spouse,children Living Arrangements House Number of Floors (Floors) Two Floors Number of Stairs To Enter/Railing? 6 steps in to landing of split level home with wide bilateral rails. Once inside, pt climbs another 8 steps to the main level using unilateral rail and SPC in opposite hand. Pt stays on the main level and rarely leaves the house. Home Environment High Toilet,Walk in Shower,Tub /Shower,Built-In Shower Seat Home Equipment Four Wheel Walker,Straight Cane,Hand Held Shower,Grab Bars Near Toilet,Grab Bars In Shower Employment Status Retired Additional Social History Comment Pt lives in [place] with her spouse, Erasto. M2 OT-IP Current Condition Start: 11/18/20 17:38 Freq: Status: Active Protocol: Document 11/18/20 17:38 CGR (Rec: 11/18/20 17:57 R [id number]) Occupational Therapy Current Condition Current Condition Evaluation Date 11/18/20 Treatment Diagnosis increased confusion with multiple falls, LLL PNA with sepsis Diagnosis Onset Date 11/17/20 M3 OT- IP Subjective and Pain Start: 11/18/20 17:38 Freq: Status: Active Protocol: Document 11/18/20 17:38 CGR (Rec: 11/18/20 17:57 R [id number]) OT- Subjective Occupational Therapy Visit Type Type Initial Evaluation Visit Start Time 13:34 Visit Stop Time 13:52 Total Visit Minutes 18 Notes It initially agreeable to activity but then states dizziness upon standing and returned to bed with supine BP of 173/65. OT Pain Assessment Pain When Pain Assessed At Rest Pain Present Pain Present Denied Pain M4 OT- IP ADL's Start: 11/18/20 17:38 Freq: Status: Active Protocol: Document 11/18/20 17:38 CGR (Rec: 11/18/20 17:57 CGR [id number]) OT [id number] Comments OT Self-Feeding Comments Not meal time OT ADL-Grooming General Evaluation Grooming Ability Standby Assistance Areas Needing Assistance Face Washing Comments OT Grooming Comments with verbal cues to perform OT ADL-Oral Care General Eval Oral Care Ability Moderate Assistance Areas of Assistance Brushing Teeth,Retrieving/Set- Up of Items Comments Oral Care Comments Pt needed assist opening tooth paste and applying paste to brush. OT ADL-Dressing Comments OT Dressing Comments Not performed OT ADL-Toileting Comments OT Toileting Comments Pt initially requesting to go to the bathroom but then declined once up and feeling dizzy. OT ADL-Bathing Comments OT Bathing Comments Not performed M5 OT- IP IADL's Start: 11/18/20 17:38 Freq: Status: Active Protocol: Document 11/18/20 17:38 CGR (Rec: 11/18/20 17:57 CGR [id number]) OT-Instrumental Activities of Daily Living Deficits IADL Deficits Identified Deficits Home Safety Awareness Awareness of Need for Assistance at Home Decreased Awareness Ability to Problem Solve Emergency Unable to Problem Solve Situations Medication Management Medication Management Caregiver Provides Supervision Money Management Money Management Caregiver Provides Assistance Meal Preparation Meal Preparation Caregiver Provides Assist Flight Attendant Inflight Services Flight Attendant Inflight Services Caregiver Provides Assist Driving Driving Comments Pt does not drive. M6 OT- IP Functional Cognition Start: 11/18/20 17:38 Freq: Status: Active Protocol: Document 11/18/20 17:38 CGR (Rec: 11/18/20 17:57 CGR [id number]) Cognitive Factors Limiting Selfcare Function Cognitive Ability Level of Alertness Alert,Confusional State Patient Orientation Name,Age,Month,Year,Place, Situation Attention Span Ability Unable to Focus,Unable to Sustain Attention Ability to Follow Commands Able to Follow One Step Commands with Increased Time, Able to Follow One Step Commands with Repetition Cognitive Comments Cognitive Assessment Comments Pt would benefit from formal cog assessment. OT- Vision and Hearing OT- Hearing Assessment OT- Hearing Assessment WFL OT- Vision Assessment Visual Attentiveness Impaired Occular Pursuits Impaired Horizontal Visual Convergence Impaired Vision Assessment Comments Pt had difficulty following commands to perform visual testing and had difficulty with horizontal tracking. M7 OT- IP Mobility and Balance Start: 11/18/20 17:38 Freq: Status: Active Protocol: Document 11/18/20 17:38 CGR (Rec: 11/18/20 17:57 CGR [id number]) OT- Bed Mobility Assessment Supine to Sit Supine to Sit Assist Standby Assistance Scooting Scooting to Edge of Bed Standby Assistance OT-Transfer Assessment Sit to and From Stand Sit to and from Stand Contact Guard Assistance, Minimal Assistance Transfers Transfer Ability Contact Guard Assistance, Minimal Assistance Technique Transfer Destination Bed Transfer Technique Stand Step Pivot Devices Transfer Assistive Devices Gait Belt,Front Wheeled Walker Comments Mobility Comments Pt started to mobilize to the bathroom then reports I must lay down now later stating that she felt dizzy. Pt declined further activity out of bed. OT- Balance Assessment Sitting Balance and Reactions Static Sitting Balance Ability Poor Dynamic Sitting Balance Ability Poor Standing Balance and Reactions Static Standing Balance Ability Poor Dynamic Standing Balance Ability Poor M8 OT- IP Objective Assessments Start: 11/18/20 17:38 Freq: Status: Active Protocol: Document 11/18/20 17:38 CGR (Rec: 11/18/20 17:57 CGR [id number]) OT Gross Range of Motion Upper Extremity Range of Motion Assessment Within Functional Limits OT Strength Comments Strength Comments Appears to grossly be 3+/5 with noted arthritic changes to both hands limiting use. Pt uses her R arm to assist L arm with shld movement. Pt had difficulty following commands to perform formal testing. OT- Coordination Assessment Upper Extremity Finger to Nose Test Bilateral UE Impaired Finger Tapping Test Bilateral UE Impaired OT-Muscle Tone Assessment Muscle Tone WNL Yes OT Sensation Assessment Edema Edema Absent M9 OT- IP Assessment and Plan Start: 11/18/20 17:38 Freq: Status: Active Protocol: Document 11/18/20 17:38 CGR (Rec: 11/18/20 17:57 CGR [id number]) OT Summary Assessment and Plan Potential Rehabilitation Potential Fair Analytic Complexity at Evaluation High Summary OT Impairments Range of Motion,Strength, Balance,Coordination, Functional Cognition, Functional Mobility,Self- Feeding,Grooming,Dressing, Toileting,Bathing,Toilet Transfers,Shower Transfers, Activity Tolerance Progress Towards Goals Slow Progress due to Activity Tolerance,Slow Progress due to Cognition Assessment Summary Pt presents as a high complexity evaluation s/p admit for AMS with LLL PNA with sepsis. Pt currently is unable to reliably follow commands but was able to confirm PLOF. Pt appears to have difficulty staying still but reports dizziness upon standing. Activities were limited to the bed after initial sit to stand. Pt will continue to benefit from OT services. Recommend d/c to SNF . Goals Self-Feeding Goal Independent Grooming Goal Independent Dressing Goal Independent Toileting Goal Independent Bathing Goal Independent Toilet Transfer Goal Independent Shower Transfer Goal Independent Days to Meet Goals 30 Frequency of Treatment Frequency Of Treatment Once a Day Treatment Plan OT Treatment Plan ADL Training,Functional Cognition Training,Functional Mobility,Patient/Family Education,Discharge Planning Other Treatment Recommendations and Next ADLs standing if pt can Treatment Focus tolerate. Discharge Recommendations OT Discharge Recommendations SNF Rehab Transportation Needs at Discharge Private Vehicle
--- NOTE | 2020-11-18 16:30 | PT.IIE ---
Addendum entered and electronically signed by Mary Reyes PT 11/18/20 17:28: Prior to evaluation, discussed pt's serial troponins with hospitalist (0.126, 0.336, 0.420) and hospitalist cleared pt for activity without concern for acute RI. Discussed activity order with hospitalist who agrees with up ad alfredo with comments - up with assist only - fall precautions. Activity order updated accordingly. Original Note: Medical History (Last Reviewed 11/18/20 @ 05:39 by Leslie Burns DO) Atrial fibrillation Dementia Gastroesophageal reflux Hypertension Immunodeficiency due to treatment with immunosuppressive medication Osteoarthritis Rheumatoid arthritis Scoliosis Physical Therapy Inpatient Evaluation/Re-Eval M1 PT/OT-IP Prior Functional Status Start: 11/18/20 11:38 Freq: NEEDED Status: Active Protocol: Document 11/18/20 16:30 AW (Rec: 11/18/20 17:24 AW [id number]) Medical Review Prior Functional Status Medical History Reviewed Yes Communication Pt has dementia at baseline and is a poor historian during this encounter. She is able to follow single step commands but occasionally needs PT to repeat requests. Mobility and Gait Per pt's spouse, pt is typically ambulatory using 4WW up to ~40 feet. She does not often leave the house since her sitting tolerance is limited and she does not do well in a car. Activities of Daily Living and IADL's Pt's spouse states she is independent with dressing and toileting tasks. She has SBA for showers. She is limited in her ability to manipulate objects due to RA affecting both hands. Prior Functional Level (Other details) Pt has fallen at least three times in the past two weeks. She has a history of frequent falls. Social History Household Members spouse,children Living Arrangements House Number of Floors (Floors) Two Floors Number of Stairs To Enter/Railing? 6 steps in to landing of split level home with wide bilateral rails. Once inside, pt climbs another 8 steps to the main level using unilateral rail and SPC in opposite hand. Pt stays on the main level and rarely leaves the house. Home Environment High Toilet,Walk in Shower,Tub /Shower,Built-In Shower Seat Home Equipment Four Wheel Walker,Straight Cane,Hand Held Shower,Grab Bars Near Toilet,Grab Bars In Shower Additional Social History Comment Pt lives in [place] with her spouse, Erasto. M2 PT-IP Current Condition Start: 11/18/20 11:38 Freq: NEEDED Status: Active Protocol: Document 11/18/20 16:30 AW (Rec: 11/18/20 17:24 AW [id number]) Physical Therapy Current Condition Current Condition Evaluation Date 11/18/20 Treatment Diagnosis sepsis, pneumonia, AMS, falls, difficulty in walking Onset Date a few weeks Precautions Other Precautions falls M3 PT-IP Subjective Start: 11/18/20 11:38 Freq: NEEDED Status: Active Protocol: Document 11/18/20 16:30 AW (Rec: 11/18/20 17:24 AW [id number]) Subjective Physical Therapy Visit Type Type Initial Evaluation Visit Start Time 16:14 Visit Stop Time 16:30 Total Visit Minutes 16 Notes Activity order: bed rest with BSC - up with assist only; pt is confused - fall precautions . Pt's spouse provided much history via phone call after pt consented to PT contacting him. Number of CHIEF ESTIMATOR Visits 0 Physical Therapy Visit Comments Patient Comments I have to use the bathroom. Patient Goals Unable to ascertain. Pt does state she wants to go home to her dog. Therapy Pain Assessment Pain When Pain Assessed During Mobility Pain Present Pain Present Denied Pain M4 PT-IP Mobility and Gait Start: 11/18/20 11:38 Freq: NEEDED Status: Active Protocol: Document 11/18/20 16:30 AW (Rec: 11/18/20 17:24 AW [id number]) PT-Bed Mobility Assessment Supine to Sit Supine to Sit Contact Guard Assistance Sit to Supine Sit to Supine Contact Guard Assistance Scooting Scooting to Edge of Bed Contact Guard Assistance PT-Transfer Assessment Sit to and From Stand Sit to and from Stand Contact Guard Assistance, Minimal Assistance,1 Person Assistance,Use of Upper Extremities Equipment Transfer Assistive Device Gait Belt,Front Wheeled Walker Orthotic/Prosthetic Devices or Brace: No Transfers Transfer Destination Bedside Commode Transfer Technique Stand Step Pivot Transfer Ability Level of Assist Minimal Assistance,1 Person Assistance,Use of Upper Extremities Comments Mobility Comments Pt was reclined in bed as PT arrived. BP 122/76 HR 56 SpO2 99% on room air. She was anxious to use the toilet and was climbing over the edge of the bed rail to get out of bed . PT had to reassure pt that she could help but needed pt to wait for equipment. Pt needed min assist for sit to stand using FWW. Her stance was wide with excessive external rotation of bilateral hips. She needed min assist for steadiness to transfer to [facility] She voided and completed pericare on her own. She stood again min assist and needed cues/reminders to pull up her briefs. Pt required min assist for balance support as she managed her briefs. Pt then transferred back to the bed min assist and returned herself to supine SBA. Bed alarm was set to second most sensitive setting and pt door was left open for high visibility to RN across the pichardo. Gait Assessment Gait Gait Assistance Required: Minimum Assistance,1 Person Assist Distance (Feet) 3 Assistive Devices Assistive Device Gait Belt,Front Wheeled Walker Orthotic/Prosthetic Devices or Brace: No Gait Deviations General Gait Pattern Decreased Stride Length, Decreased Feet Clearance, Flexed Trunk,Wide Based Gait Factors Limiting Gait Function Factors Limiting Gait Function Decreased Activity Tolerance, Decreased Strength,Difficulty Following Directions,Poor Balance,Poor Safety Awareness Comments Gait Comments Steps taken during transfer only. See mobility comments for details. PT determined pt unsafe for gait at this time. Stair Climbing Assessment Comments Stair Climbing Comments Not assessed. PT-Balance Assessment Sitting Balance and Reactions Static Sitting Balance Ability Poor Dynamic Sitting Balance Ability Poor Standing Balance and Reactions Static Standing Balance Ability Poor Dynamic Standing Balance Ability Poor Device Used FWW M5 PT-IP Objective Assessments Start: 11/18/20 11:38 Freq: NEEDED Status: Active Protocol: Document 11/18/20 16:30 AW (Rec: 11/18/20 17:24 AW [id number]) Orientation Orientation/Cognition Level of Alertness Confusional State Orientation Name,Place Language Function Ability No Deficits Noted Safety Awareness Decreased Safety Awareness Memory Description Short Term Impaired Gross Range of Motion Upper Extremity ROM Assessment Bilaterally Impaired Impairments Hands affected by RA with extreme ulnar drift. Lower Extremity ROM Assessment Within Functional Limits Strength Lower Extremity Strength Assessment Bilaterally Impaired Hip 3+/5 Knee 4-/5 Sensation Assessment Comments Sensation Comments Unable to assess due to cognition. M6 PT-IP Treatment Start: 11/18/20 11:38 Freq: NEEDED Status: Active Protocol: Document 11/18/20 16:30 AW (Rec: 11/18/20 17:24 AW [id number]) Physical Therapy Treatment Education Education Provided Safety M7 PT-IP Assessment and Plan Start: 11/18/20 11:38 Freq: NEEDED Status: Active Protocol: Document 11/18/20 16:30 AW (Rec: 11/18/20 17:24 AW [id number]) PT Summary Assessment and Plan Potential Rehabilitation Potential Fair Status of Condition at Evaluation Evolving Summary Impairments Pain,ROM,Strength,Balance, Cognition,Bed Mobility, Transfers,Gait,Activity Tolerance Assessment Summary Leena is a 80 yo woman seen for PT evaluation with admitting diagnosis of sepsis, pneumonia, AMS, and falls. She is modified independent for limited household ambulation using 4WW at baseline. On evaluation, pt required CGA to min assist for transfers with FWW and was deemed unsafe for gait. Pt presents with decreased strength, balance, and with cognition deficits affecting her mobility. In the context of decline from her baseline mobility, pt will require SNF rehab to improve her strength and mobility independence. Goals Bed Mobility Goal Independent Transfer Goal Standby Assistance,Front Wheeled Walker Gait Goal Independent,Front Wheel Walker Gait Distance 40 Other Goals - up/down 8 steps with unilateral rail and SPC CGA LTG: Improve transfers and gait to SBA with 4WW Days to Meet Goals 10 Frequency of Treatment Frequency Of Treatment Once a Day Treatment Plan Physical Therapy Treatment Plan Bed Mobility Training,Transfer Training,Gait Training, Therapeutic Exercise,Balance Retraining,Discharge Planning, Neuromuscular Re-ed Other Recommendations and Next Treatment transfers, gait with FWW as Focus able Precautions Other Precautions falls Recommendations To Nursing Amount of Assist Needed 1 Person Assist Discharge Recommendations PT Discharge Recommendations SNF Rehab Transportation Needs at Discharge Private Vehicle,Wheelchair/ Cabulance
[2020-11-18 17:33] LABS: Creatine Kinase 83 U/L (30-135)
[2020-11-18] MEDS: SENNOSIDES 8.6 MG TABLET 17.2 MG PO (21:12)
[2020-11-18] MEDS: ATORVASTATIN 20 MG TABLET 80 MG PO (21:12)
--- NOTE | 2020-11-18 21:54 | PC.NURSE ---
Pt is A and O to self and to spouse when he is present. She is confused re date and time and day and noc. Decreased appetite. Able to sleep and denies pain. She is impulsive and has urinary urgency but does follow directions. Her RA and contracted her fingers bilaterally and caused her feet to splay making walking difficult. She has two patient IVs bilat FA but the sites are bloody. She is not able to protect her IVs. BSC and brief usually incontinent.
[2020-11-19] VITALS (12 sets, daily range): BP systolic 147–194; BP diastolic 71–97; PULSE 49–60; RESP 14–17; TEMP 36.2–36.8; O2SAT 93–100
--- NOTE | 2020-11-19 02:26 | PC.NURSE ---
Addendum entered by Zabrina Betancur R.N. 11/19/20 06:51: weight up 2.1kg possibly related to hydration over past 24h. Has no edema and breath sounds CTA; denies SOB. Garo BRADLEY, informed. Original Note: Patient arouses easily. Is oriented except did not know day of month or day of week. Breath sounds CTA with RA sat of 98%; on continuous oximetry. HRR but bradycardic at 55 bpm. Telemetry reading was SB w/prolonged QT + BBB. BP elevated at 188/75 on left arm and 151/78 on right arm; [employer] made aware. Denies nausea. BT present and abdomen is soft. Denies dysuria but does seem to have urgency with urination. Moves self in bed. Pivot transfers to [facility] with walker and 1 assist. Has contractures in bilateral hands related to RA. Multiple bruises noted on bilateral arms/legs. Allevyn dressings to skin tears on bilateral UE are CDI. Scabbed abrasions noted on bilateral LE. Denies pain. Agreeable to having bilateral calf SCD's put on. Fall risk score is high and patient is forgetful/impulsive and does not remember to call for assistance so bed alarm is activated.
[2020-11-19 05:23] LABS: Add Manual Diff / Slide Review NO; Basophils Absolute Auto 100 /uL (0-100); Basophils Percent Auto 0.4 % (0-2); Eosinophils Absolute Auto 100 /uL (0-450); Eosinophils Percent Auto 0.7 % (2-4); Hematocrit 33.2 % (36-46); Lymphocytes Absolute Auto 1600 /uL (1100-4500); Lymphocytes Percent Auto 11.2 % (25-40); Mean Corpuscular HGB Conc 33.2 % (30-36); Mean Corpuscular Hemoglobin 29.9 PG (26-34); Monocytes Absolute Auto 1200 /uL (0-900); Monocytes Percent Auto 8.5 % (3-14); Neutrophils Absolute Auto 11100 /uL (1500-7000); Neutrophils Percent Auto 79.2 % (50-75); Platelet Count 306 X10^3/uL (150-400); Red Blood Cell Count 3.69 X10^6/uL (4.0-5.2); Red Cell Distribution Width 16.1 % (11.6-14.8)
[2020-11-19 05:49] LABS: Alanine Aminotransferase 19 IU/L (<35); Albumin Globulin Ratio 1.3 (1.0-2.8); Alkaline Phosphatase 267 U/L (38-126); Aspartate Aminotransferase 40 IU/L (14-36); BUN Creatinine Ratio 25.9 (6-22); Bilirubin Total 0.8 mg/dL (0.2-1.3); Blood Urea Nitrogen 15 mg/dL (7-17); Calcium 7.9 mg/dL (8.4-10.2); Carbon Dioxide 27 mmol/L (22-32); Chloride 99 mmol/L (98-107); Estimated Glomerular Filt Rate > 60.0 mL/min (>60); Globulin 2.4 g/dL (1.7-4.1); Glucose 73 mg/dL (80-110); HEMOLYSIS < 15 (0-50); Sodium 131 mmol/L (137-145); Total Protein 5.4 g/dL (6.3-8.2)
[2020-11-19 06:01] LABS: Procalcitonin 1.52 ng/mL (<0.5)
[2020-11-19 06:13] LABS: Potassium 2.6 mmol/L (3.4-5.1)
[2020-11-19 06:19] LABS: Troponin I 0.194 ng/mL (0.01-0.034)
[2020-11-19] MEDS: POTASSIUM CHLORIDE IN WATER 10 MEQ/100 ML PIGGYBACK 100 MEQ IV ×4 (06:36→11:51)
[2020-11-19] MEDS: SODIUM CHLORIDE 0.9% FLUSH 10 ML IV ×3 (06:36→22:47)
[2020-11-19] MEDS: SODIUM CHLORIDE 0.9% 250 ML 21 ML IV (06:36)
[2020-11-19] MEDS: MEROPENEM 500 MG in SODIUM CHLORIDE 0.9% 100 ML 200 ML IV (08:02)
[2020-11-19] MEDS: DABIGATRAN 75 MG CAPSULE 150 MG PO ×2 (08:03→20:00)
[2020-11-19] MEDS: predniSONE 5 MG TABLET PO (08:03)
[2020-11-19] MEDS: METOPROLOL ER 25 MG TABLET PO ×2 (08:03→20:02)
[2020-11-19] MEDS: ASPIRIN EC 81 MG TABLET PO (08:05)
--- NOTE | 2020-11-19 08:21 | DI.CT.S_ITS ---
PROCEDURE: CT CHEST W CON INDICATIONS: eval malignancy noted on CT c-spine, also ?pneumonia TECHNIQUE: After the administration of intravenous contrast, 5 mm thick sections acquired from the pulmonary apices to the posterior costophrenic angles. 1 mm axial lung, 5 mm thick coronal and sagittal reformats and 7 mm axial MIP were acquired. For radiation dose reduction, the following was used: automated exposure control, adjustment of mA and/or kV according to patient size. COMPARISON: [facility], CT, CT CERVICAL SPINE WO CON, 11/17/2020, 21:20. FINDINGS: Image quality: Excellent. Lungs and pleura: There is a 1.8 cm spiculated mass in the right upper lobe series 3, image 69 which was previously seen on CT of the neck on 11/17/2020. On the left there is dependent atelectasis and a moderate-sized left pleural effusion. 2 mm nodule on the left, 1 at series 2, image 24. Mediastinum: Heart size is normal. No pericardial effusion. No mediastinal adenopathy. There is right hilar are adenopathy with lymph nodes measuring up to 1.2 cm. Thoracic aorta and central pulmonary arteries are normal in size. Esophagus is normal in caliber. No hiatal hernia. Bones and chest wall: Degenerative changes with no focal abnormality. Multiple healed left-sided rib fractures are present. Abdomen: Visualized upper abdominal solid organs appear normal. Upper abdominal bowel loops are normal in caliber. IMPRESSION: 1. Spiculated 1.8 cm right upper lobe mass highly suspicious for metastasis. 2. Left lower lobe atelectasis and moderate left pleural effusion. Dictated by: Nirav Bernabe M.D. on 11/19/2020 at 9:03 Approved by: Nirav Bernabe M.D. on 11/19/2020 at 9:10
--- NOTE | 2020-11-19 11:03 | OT.IP.TRT ---
Current Diagnoses Sepsis, unspecified organism (11/17/20) Occupational Therapy Treatment Note M2 OT-IP Current Condition Start: 11/18/20 17:38 Freq: Status: Active Protocol: Document 11/18/20 17:38 CGR (Rec: 11/18/20 17:57 CGR [id number]) Occupational Therapy Current Condition Current Condition Evaluation Date 11/18/20 Treatment Diagnosis increased confusion with multiple falls, LLL PNA with sepsis Diagnosis Onset Date 11/17/20 M3 OT- IP Subjective and Pain Start: 11/18/20 17:38 Freq: Status: Active Protocol: Document 11/19/20 11:10 [facility] (Rec: 11/19/20 11:18 [facility] [id number]) OT- Subjective Occupational Therapy Visit Type Type Treatment Note Visit Start Time 10:45 Visit Stop Time 11:03 Occupational Therapy Visit Comments Patient Comments Pt wanting to get up to use the bathroom. Patient/Caregiver Goals TO go home. OT Pain Assessment Pain When Pain Assessed At Rest Pain Present Pain Present Pain Reported M4 OT- IP ADL's Start: 11/18/20 17:38 Freq: Status: Active Protocol: Document 11/19/20 11:10 [facility] (Rec: 11/19/20 11:18 [facility] [id number]) OT [id number] Comments OT Self-Feeding Comments Not meal time OT ADL-Grooming General Evaluation Grooming Ability Standby Assistance Areas Needing Assistance Combing/Brushing Hair,Face Washing Comments OT Grooming Comments Pt able to do after set-up while seated on BSC. OT ADL-Oral Care General Eval Oral Care Ability Standby Assistance Comments Oral Care Comments After set-up pt able to brush her teeth while seated on the BSC. OT ADL-Dressing General Eval Lower Body Dressing Ability Moderate Assistance Comments OT Dressing Comments Pt able to hold the brief in hands and needing assist to keep brief open as she was able to get her feet in and needing assist to prashant/doff over her hips. OT ADL-Toileting Comments OT Toileting Comments Pt able to wipe , but did not end up using the toilet. OT ADL-Bathing Comments OT Bathing Comments To look at doing showering with pt tomorrow. M5 OT- IP IADL's Start: 11/18/20 17:38 Freq: Status: Active Protocol: Document 11/18/20 17:38 CGR (Rec: 11/18/20 17:57 CGR [id number]) OT-Instrumental Activities of Daily Living Deficits IADL Deficits Identified Deficits Home Safety Awareness Awareness of Need for Assistance at Home Decreased Awareness Ability to Problem Solve Emergency Unable to Problem Solve Situations Medication Management Medication Management Caregiver Provides Supervision Money Management Money Management Caregiver Provides Assistance Meal Preparation Meal Preparation Caregiver Provides Assist Search Marketing Specialist Search Marketing Specialist Caregiver Provides Assist Driving Driving Comments Pt does not drive. M6 OT- IP Functional Cognition Start: 11/18/20 17:38 Freq: Status: Active Protocol: Document 11/19/20 11:10 [facility] (Rec: 11/19/20 11:18 [facility] [id number]) Cognitive Factors Limiting Selfcare Function Cognitive Ability Level of Alertness Alert,Confusional State Attention Span Ability Unable to Focus,Unable to Sustain Attention Ability to Follow Commands Able to Follow One Step Commands with Increased Time, Able to Follow One Step Commands with Repetition Cognitive Comments Cognitive Assessment Comments Pt is a bit impulsive, able to follow concrete simple commands. To look at doing cogn assessment soon. M7 OT- IP Mobility and Balance Start: 11/18/20 17:38 Freq: Status: Active Protocol: Document 11/19/20 11:10 [facility] (Rec: 11/19/20 11:18 [facility] [id number]) OT- Bed Mobility Assessment Supine to Sit Supine to Sit Assist Standby Assistance Scooting Scooting to Edge of Bed Standby Assistance OT-Transfer Assessment Sit to and From Stand Sit to and from Stand Minimal Assistance,Moderate Assistance Transfers Transfer Ability Moderate Assistance Technique Transfer Destination Bed,Bedside Commode Transfer Technique Stand Step Pivot Devices Transfer Assistive Devices Gait Belt,Front Wheeled Walker Comments Mobility Comments Pending on level of surface standing from , pt needing STEVEN to MODA to stand. Pt needing assist for balance as pt does not have her shoes here and unsteady on her feet. OT- Balance Assessment Sitting Balance and Reactions Static Sitting Balance Ability Fair Dynamic Sitting Balance Ability Poor Standing Balance and Reactions Static Standing Balance Ability Poor Dynamic Standing Balance Ability Poor M8 OT- IP Objective Assessments Start: 11/18/20 17:38 Freq: Status: Active Protocol: Document 11/18/20 17:38 CGR (Rec: 11/18/20 17:57 CGR [id number]) OT Gross Range of Motion Upper Extremity Range of Motion Assessment Within Functional Limits OT Strength Comments Strength Comments Appears to grossly be 3+/5 with noted arthritic changes to both hands limiting use. Pt uses her R arm to assist L arm with shld movement. Pt had difficulty following commands to perform formal testing. OT- Coordination Assessment Upper Extremity Finger to Nose Test Bilateral UE Impaired Finger Tapping Test Bilateral UE Impaired OT-Muscle Tone Assessment Muscle Tone WNL Yes OT Sensation Assessment Edema Edema Absent M9 OT- IP Assessment and Plan Start: 11/18/20 17:38 Freq: Status: Active Protocol: Document 11/19/20 11:10 [facility] (Rec: 11/19/20 11:18 [facility] [id number]) OT Summary Assessment and Plan Potential Rehabilitation Potential Fair Analytic Complexity at Evaluation High Summary OT Impairments Range of Motion,Strength, Balance,Coordination, Functional Cognition, Functional Mobility,Self- Feeding,Grooming,Dressing, Toileting,Bathing,Toilet Transfers,Shower Transfers, Activity Tolerance Progress Towards Goals Progressing Toward Goals,Slow Progress due to Activity Tolerance,Slow Progress due to Cognition Assessment Summary Pt able to follow simple commands for ADl needs. Pt stil having decreased activity tolerance, balance, and would benefit from skilled rehab stay prior to going home. Goals Self-Feeding Goal Independent Grooming Goal Independent Dressing Goal Independent Toileting Goal Independent Bathing Goal Independent Toilet Transfer Goal Independent Shower Transfer Goal Independent Days to Meet Goals 29 Frequency of Treatment Frequency Of Treatment Once a Day Treatment Plan OT Treatment Plan ADL Training,Functional Cognition Training,Functional Mobility,Patient/Family Education,Discharge Planning Discharge Recommendations OT Discharge Recommendations SNF Rehab Transportation Needs at Discharge Private Vehicle,Wheelchair/ Cabulance
--- NOTE | 2020-11-19 11:12 | DIET.PN ---
Dietary Progress Note Assessment: 80y F admitted for change in mental status secondary to falling unconscious c frequent falls recently found to have sepsis, presumed pneumonia and concerning for lung mass consulting nutrition for decreased appetite, fragile skin, bruising. Per pt and spouse, pt UBW is 110# but for past few years has been maintaining 95-100# through nightly intake ice cream. Pt reports severe lack of appetite x2w- food doesn't sound good to her, even favorite items. Per , will cut pt apple, she will ask for 3 slices and eat only one. Will open Ensure and drink half before tossing in garbage. Pt having frequent falls over past few weeks, OT report shows poor balance upon evaluation. NPFE showing significant scattered bruising on both arms, significant fat wasting system wide and moderate muscle wasting in temples, clavicle, deltoid. Pt and spouse do not feel artificial nutrition support via enteral feeding good choice for patient at this time, however open to discussing c medical team. Per spouse, I think Leena would hate it, per pt, I need time to think more about it. HT: 147.3 WT:40.6kg (-5.9% in 2w, severe) UBW: 50kg most of adult life, 43kg x2y BMI: 18.7 (severe for age) Labs:WBC 14 H, K+ 2.6 L, Troponin 1 0.194 H, CRP 1.2 H MNA:not calculated Dez: 20 Nutrition Diagnosis: Severe Acute PCM r/t severely reduced appetite aeb 5.9% unintentional weight loss x2w (severe), BMI 18.7 (severe for age), imaging concerning for lung metastasis, pt POs meeting <50% EER x2w, recent frequent falls, NFPE showing severe fat wasting, moderate muscle wasting, and significant bruising on upper extremities. Interventions: 1. Recc ONS high PRO smoothies bid and high PRO warm soups c meals to encourage increased PO intake. 2. Discussed feeding strategies c spouse. Encouraged small frequent nourishments focusing on high pro and healthy fat options such as spoonful nut butter, high PRO soups, ONS Ensure Enlive throughout the day. Diet Order: HH c 1/2 portions, high PRO, soups c meals EER: 1500kcal (35kcal/kg), 52g PRO (1.3g/kg per PCM) Monitoring/Evaluations: ONS tolerance, POs
--- NOTE | 2020-11-19 11:21 | PT.IPTN ---
Current Diagnoses Sepsis, unspecified organism (11/17/20) Physical Therapy Treatment Note M2 PT-IP Current Condition Start: 11/18/20 11:38 Freq: NEEDED Status: Active Protocol: Document 11/18/20 16:30 AW (Rec: 11/18/20 17:24 AW [id number]) Physical Therapy Current Condition Current Condition Evaluation Date 11/18/20 Treatment Diagnosis sepsis, pneumonia, AMS, falls, difficulty in walking Onset Date a few weeks Precautions Other Precautions falls M3 PT-IP Subjective Start: 11/18/20 11:38 Freq: NEEDED Status: Active Protocol: Document 11/19/20 11:21 AW (Rec: 11/19/20 11:45 AW [id number]) Subjective Physical Therapy Visit Type Type Treatment Note Visit Start Time 11:05 Visit Stop Time 11:21 Total Visit Minutes 16 Notes Activity order updated to up ad alfredo with assist. Physical Therapy Visit Comments Patient Comments I do much better with my shoes on. Therapy Pain Assessment Pain When Pain Assessed At Rest Pain Present Pain Present Pain Reported Location low back Scale Used not quantified Description Aching Pain Behaviors Facial Grimacing Pain Management Techniques Distraction,Re-positioning M4 PT-IP Mobility and Gait Start: 11/18/20 11:38 Freq: NEEDED Status: Active Protocol: Document 11/19/20 11:21 AW (Rec: 11/19/20 11:45 AW [id number]) PT-Bed Mobility Assessment Supine to Sit Supine to Sit Contact Guard Assistance Sit to Supine Sit to Supine Contact Guard Assistance Scooting Scooting to Edge of Bed Contact Guard Assistance PT-Transfer Assessment Sit to and From Stand Sit to and from Stand Contact Guard Assistance, Minimal Assistance,1 Person Assistance,Use of Upper Extremities Equipment Transfer Assistive Device Gait Belt,Front Wheeled Walker Orthotic/Prosthetic Devices or Brace: No Transfers Transfer Destination Chair Transfer Technique Stand Step Pivot Transfer Ability Level of Assist Minimal Assistance,Moderate Assistance,1 Person Assistance ,Use of Upper Extremities Comments Mobility Comments Pt was lying in bed after working with OT. BP 157/74 HR 53. She sat up EOB CGA and needed min assist to stand. She used FWW to ambulate to the window min A x 1 with wide base of support and bilateral feet turned out due to RA deformity. She sat on the window seat CGA and noted that she usually has her shoes for walking at home. She stood again and transferred to the chair min A x 1 with FWW. BP was 161/62 HR 53. Pt stood and transferred back to the bed min A x 1 with FWW. She was able to scoot herself up on the bed. Pt was left with call light and tray table in reach . Bed alarm was on high sensitivity for safety. Gait Assessment Gait Gait Assistance Required: Minimum Assistance,1 Person Assist Distance (Feet) 10 Assistive Devices Assistive Device Gait Belt,Front Wheeled Walker Orthotic/Prosthetic Devices or Brace: No Gait Deviations General Gait Pattern Decreased Stride Length, Decreased Feet Clearance, Flexed Trunk,Wide Based Gait Factors Limiting Gait Function Factors Limiting Gait Function Decreased Activity Tolerance, Decreased Strength,Difficulty Following Directions,Poor Balance,Poor Safety Awareness Comments Gait Comments Pt reports she is more stable with her shoes on. No personal belongings were found in the room so PT was unable to assess. Stair Climbing Assessment Comments Stair Climbing Comments Not assessed. PT-Balance Assessment Sitting Balance and Reactions Static Sitting Balance Ability Fair Dynamic Sitting Balance Ability Poor Standing Balance and Reactions Static Standing Balance Ability Poor Dynamic Standing Balance Ability Poor Device Used FWW M5 PT-IP Objective Assessments Start: 11/18/20 11:38 Freq: NEEDED Status: Active Protocol: Document 11/18/20 16:30 AW (Rec: 11/18/20 17:24 AW [id number]) Orientation Orientation/Cognition Level of Alertness Confusional State Orientation Name,Place Language Function Ability No Deficits Noted Safety Awareness Decreased Safety Awareness Memory Description Short Term Impaired Gross Range of Motion Upper Extremity ROM Assessment Bilaterally Impaired Impairments Hands affected by RA with extreme ulnar drift. Lower Extremity ROM Assessment Within Functional Limits Strength Lower Extremity Strength Assessment Bilaterally Impaired Hip 3+/5 Knee 4-/5 Sensation Assessment Comments Sensation Comments Unable to assess due to cognition. M6 PT-IP Treatment Start: 11/18/20 11:38 Freq: NEEDED Status: Active Protocol: Document 11/19/20 11:21 AW (Rec: 11/19/20 11:45 AW [id number]) Physical Therapy Treatment Education Education Provided Safety M7 PT-IP Assessment and Plan Start: 11/18/20 11:38 Freq: NEEDED Status: Active Protocol: Document 11/19/20 11:21 AW (Rec: 11/19/20 11:45 AW [id number]) PT Summary Assessment and Plan Summary Impairments Pain,ROM,Strength,Balance, Cognition,Bed Mobility, Transfers,Gait,Activity Tolerance Progress Towards Goals Slow Progress due to Pain,Slow Progress due to Activity Tolerance,Slow Progress - Other Assessment Summary Leena was able to ambulate ~10 feet today with FWW and min assist. Gait is unsteady and affected by RA in bilateral feet. She states she is more steady with her shoes on but PT is unable to assess. Pt's mobility independence is diminished compared with her baseline and would benefit from skilled rehab stay before returning home. Goals Bed Mobility Goal Independent Transfer Goal Standby Assistance,Front Wheeled Walker Gait Goal Independent,Front Wheel Walker Gait Distance 40 Other Goals - up/down 8 steps with unilateral rail and SPC CGA LTG: Improve transfers and gait to SBA with 4WW Days to Meet Goals 10 Frequency of Treatment Frequency Of Treatment Once a Day Treatment Plan Physical Therapy Treatment Plan Bed Mobility Training,Transfer Training,Gait Training, Therapeutic Exercise,Balance Retraining,Discharge Planning, Neuromuscular Re-ed Other Recommendations and Next Treatment transfers, gait with FWW ( Focus shoes donned), stairs Precautions Other Precautions falls Recommendations To Nursing Amount of Assist Needed 1 Person Assist Discharge Recommendations PT Discharge Recommendations SNF Rehab,Home vs SNF Transportation Needs at Discharge Private Vehicle,Wheelchair/ Cabulance
--- NOTE | 2020-11-19 11:52 | CM.DPC ---
DCP Ongoing SNF planning: Per MD, pt with possible new lung malignancy and will need to do stress test possibly tomorrow if stable and likely in the hospital another couple days. Per PT/OT, recommending SNF rehab at d/c and spouse continues to remain agreeable. SW called following SNF's that were referred to yesterday. [facility] received initial referral and then PT/OT notes faxed this morning but therapy notes did not go through correctly and requested PT/OT be refaxed. WM Michele kindly faxing those notes to [facility] now to review to determine if they feel they can accept. SONYA called [facility] in [facility] and spoke to Shirley and she is waiting for her DNS to arrive at their building to make final determination if they feel they can meet pt's needs. Pt has [employer] MCR and will need auth for SNF. If [facility] or [facility] cannot accept then SW to make additional referrals to [facility] or [facility] as no further contracted SNF's in [facility] with [employer]. PASRR completed. Plan: SW to follow with [facility] and [facility] SNFs today to determine if either can accept and willing to work on [employer] auth. SW to keep spouse updated. MARVIN Trevino
--- NOTE | 2020-11-19 14:34 | CM.DPNOTE ---
Faxed PT/OT notes to [facility] therese [place] and received fax conf. Leny Richards CM Asst.
--- NOTE | 2020-11-19 15:11 | P.PN_ITS ---
Subjective Subjective Date Patient Seen: 11/19/20 Time Patient Seen: 08:00 Interval history: Today she is complaining of back pain, which she says is chronic for her. She has pain at the IV site, but otherwise she has no other pain. No abdominal pain. No shortness of breath. She does have a mild cough. Exam Vital Signs (past 8 hours): - 11/19/20 07:58 11/19/20 08:03 11/19/20 08:05 Temperature 97.2 F L Pulse Rate 53 L 54 L Respiratory Rate 15 Blood Pressure 194/85 H 160/95 H 160/95 H Pulse Oximetry 97 11/19/20 10:45 11/19/20 11:05 Temperature 98.0 F Pulse Rate 54 L 59 L Respiratory Rate 16 16 Blood Pressure 147/76 H Pulse Oximetry 97 98 Oxygen Delivery Method Room Air Oxygen Flow Rate 0 Narrative Exam Narrative: General: in no acute distress. HEENT: Normocephalic, atraumatic. External ears without defect. Pupils equal, round, and reactive to light. Anicteric sclerae, moist conjunctivae, and no lid lag. Poor dentition, mucosa membranes are dry Neck: Supple with full range of motion. No lymphadenopathy or thyromegaly. Cardiovascular: regular with no murmurs Pulmonary: decreased breath sound at bases, coarse breath sounds Abdomen: Soft,, nontender, nondistended. No hepatosplenomegaly or masses appreciated. Extremities: Extremities are covered in bruises NEURO: awake, alert and oriented to self and to year and location Psychiatric: ognitive impairment vs. dementia with short-term memory recall deficit. Objective Labs Result Diagrams: 11/19/20 05:05 11/19/20 05:05 Labs: Laboratory Results - last 24 hr 11/18/20 11/19/20 11/19/20 06:45 00:55 05:05 WBC 14.0 H RBC 3.69 L Hgb 11.0 L Hct 33.2 L MCV 90.0 MCH 29.9 MCHC 33.2 RDW 16.1 H Plt Count 306 Neut % (Auto) 79.2 H Lymph % (Auto) 11.[address] [place] % (Auto) 8.5 Eos % (Auto) 0.7 L Baso % (Auto) 0.4 Neut # (Auto) 45363 H Lymph # (Auto) 1600 [place] # (Auto) 1200 H Eos # (Auto) 100 Baso # (Auto) 100 Sodium Potassium Chloride Carbon Dioxide BUN Creatinine Estimated GFR BUN/Creatinine Ratio Glucose Calcium Total Bilirubin AST ALT Alkaline Phosphatase Total Creatine Kinase 83 CK-MB (CK-2) TNP CK-MB (CK-2) Rel Index TNP Troponin I Total Protein Albumin Globulin Albumin/Globulin Ratio Procalcitonin Nasal Screen MRSA (PCR) Negative for mrsa 11/19/20 11/19/20 05:05 05:05 WBC RBC Hgb Hct MCV MCH MCHC RDW Plt Count Neut % (Auto) Lymph % (Auto) [place] % (Auto) Eos % (Auto) Baso % (Auto) Neut # (Auto) Lymph # (Auto) [place] # (Auto) Eos # (Auto) Baso # (Auto) Sodium 131 L Potassium 2.6 L* Chloride 99 Carbon Dioxide 27 BUN 15 Creatinine 0.58 Estimated GFR > 60.0 BUN/Creatinine Ratio 25.9 H Glucose 73 L Calcium 7.9 L Total Bilirubin 0.8 AST 40 H ALT 19 Alkaline Phosphatase 267 H Total Creatine Kinase CK-MB (CK-2) CK-MB (CK-2) Rel Index Troponin I 0.194 H* Total Protein 5.4 L Albumin 3.0 L Globulin 2.4 Albumin/Globulin Ratio 1.3 Procalcitonin 1.52 H Nasal Screen MRSA (PCR) [facility] Medical History Atrial fibrillation Dementia Gastroesophageal reflux Hypertension Immunodeficiency due to treatment with immunosuppressive medication Osteoarthritis Rheumatoid arthritis Scoliosis Surgical History History of spinal surgery Social History household members: spouse and children Smoking Status: Former smoker alcohol intake: current Assessment & Plan Assessment & Plan narrative: Ms. Helton is a 80W with PMH of RA on immunosuppression,dementia, hypertension, atrial fibrillation, gastroesophageal reflux and levoscoliosis of the thoracic lumbar spine who is admitted forfor left lower lobe pneumonia with sepsis, encephalopathy, atrial fibrillation with RVR, and hypokalemia. 1. Sepsis, acute, secondary to left lower lobe pneumonia with encephalopathy, and resulting hyperkalemia, acute, present on admission -patient with positive infection markers including lactate 4.0, procalcitonin of 1.77, leukocytosis at 18, neutrophils# 15,800. SOFA:3, curb 65: 3 -organ dysfunction with encephalopathy -potassium 2.9, GFR 52.9, BP 109/78 down from 135/108, HR 140, R 28 -placed on broad spectrum antibiotics with vanc/zosyn with some improvement with WBC and procal downtrending -repleting potassium today with IV and oral potassium 2. Elevated troponin secondary to type 2 MS, likely due to pneumonia/sepsis, a cute, present on admission -troponin 1.# 0.121 that peaked at 0.4, but is now downtrending -ordered for aspirin, statin, beta-thong, and dabigatran -ECHO showed normal EF and no focal wall motion abnormality -plan for stress test once patient stable from sepsis 3. Paroxysmal Atrial fibrillation with RVR, acute on chronic, present on admission -patient with history of atrial fibrillation developed atrial fibrillation with RVR in the emergency department with heart rate in 140s. -patient placed on diltiazem IV drip and converted -she was switched back to po metoprolol and pradaxa 4. Essential Hypertension, acute on chronic present on admission uncontrolled -patient was hypertensive in ED 135/57, 135/108, upon admit patient began developing hypotension with a BP decreased to 109/78-after receiving 1 L bolus NS -continue losartan until blood pressure improves. 5. Rheumatoid arthritis, chronic, present on admission-control unknown -rheumatoid arthritis bilateral hands with resulting joint deformities -patient on prednisone which is continued, and methotrexate which are held. 6. Dementia, acute on chronic, present on admission -continue patient's citalopram and Aricept Codestatus: DNR Surrogate decision maker: Greg Helton spouse DVT/VTE prophylaxis: Patient on Pradaxa, SCDs only I have utilized all available immediate resources to obtain, update, or review the patient's current medications.
[2020-11-19] MEDS: POTASSIUM CHLORIDE 20 MEQ/15 ML UDC 40 MEQ PO (15:28)
[2020-11-19] MEDS: POTASSIUM CHLORIDE 20 MEQ/15 ML UDC PO (17:03)
[2020-11-19] MEDS: ACETAMINOPHEN 325 MG TABLET 650 MG PO (17:54)
[2020-11-19] MEDS: ATORVASTATIN 20 MG TABLET 80 MG PO (20:01)
[2020-11-19] MEDS: SENNOSIDES 8.6 MG TABLET 17.2 MG PO (20:01)
[2020-11-19] MEDS: MELATONIN 3 MG TABLET 6 MG PO (20:02)
--- NOTE | 2020-11-19 21:22 | PC.NURSE ---
Pt was more lucid and less impulsive today over yesterday. She also ate 50 % of her evening meal. She drank her K in clear fruity Ensure diluted with water. Her skin continues to be very fragile tearing at the slightest touch. Hypertensive today at 157- 175/ 70's, and shahrzad in the high 50's. LS clear, + BTs and medium formed green stool continent today. Continues to be incontinent of urine. C/o lower back pain, after dinner with minor relief from 650 mg po APAP.
[2020-11-19] MEDS: MEROPENEM 1 GM in SODIUM CHLORIDE 0.9% 100 ML 200 ML IV (22:54)
[2020-11-20] VITALS (7 sets, daily range): BP systolic 129–187; BP diastolic 75–97; PULSE 53–69; RESP 15–20; TEMP 36.1–36.9; O2SAT 96–100
[2020-11-20 05:39] LABS: Add Manual Diff / Slide Review NO; Basophils Absolute Auto 0 /uL (0-100); Basophils Percent Auto 0.3 % (0-2); Eosinophils Absolute Auto 300 /uL (0-450); Eosinophils Percent Auto 2.4 % (2-4); Hematocrit 31.9 % (36-46); Hemoglobin 10.7 g/dL (12.0-16.0); Lymphocytes Absolute Auto 1500 /uL (1100-4500); Lymphocytes Percent Auto 11.4 % (25-40); Mean Corpuscular HGB Conc 33.4 % (30-36); Monocytes Absolute Auto 1500 /uL (0-900); Neutrophils Absolute Auto 10200 /uL (1500-7000); Neutrophils Percent Auto 74.9 % (50-75); Platelet Count 283 X10^3/uL (150-400); Red Blood Cell Count 3.55 X10^6/uL (4.0-5.2); Red Cell Distribution Width 16.1 % (11.6-14.8); White Blood Cell Count 13.5 X10^3/uL (4.5-11.0)
[2020-11-20 05:54] LABS: Alanine Aminotransferase 20 IU/L (<35); Albumin 2.8 g/dL (3.5-5.0); Albumin Globulin Ratio 1.2 (1.0-2.8); Alkaline Phosphatase 277 U/L (38-126); Aspartate Aminotransferase 40 IU/L (14-36); BUN Creatinine Ratio 29.6 (6-22); Bilirubin Total 0.9 mg/dL (0.2-1.3); Blood Urea Nitrogen 16 mg/dL (7-17); Calcium 7.9 mg/dL (8.4-10.2); Carbon Dioxide 27 mmol/L (22-32); Chloride 98 mmol/L (98-107); Estimated Glomerular Filt Rate > 60.0 mL/min (>60); Globulin 2.4 g/dL (1.7-4.1); Glucose 81 mg/dL (80-110); HEMOLYSIS < 15 (0-50); Potassium 4.3 mmol/L (3.4-5.1); Sodium 128 mmol/L (137-145); Total Protein 5.2 g/dL (6.3-8.2)
[2020-11-20] MEDS: ASPIRIN EC 81 MG TABLET PO (08:52)
[2020-11-20] MEDS: METOPROLOL ER 25 MG TABLET PO ×2 (08:52→21:10)
[2020-11-20] MEDS: POTASSIUM CHLORIDE 20 MEQ/15 ML UDC PO (08:52)
[2020-11-20] MEDS: DABIGATRAN 75 MG CAPSULE 150 MG PO ×2 (08:53→21:16)
[2020-11-20] MEDS: SODIUM CHLORIDE 0.9% FLUSH 10 ML IV ×3 (08:53→22:06)
[2020-11-20] MEDS: predniSONE 5 MG TABLET PO (08:53)
[2020-11-20] MEDS: MEROPENEM 1 GM in SODIUM CHLORIDE 0.9% 100 ML 200 ML IV ×2 (09:37→21:08)
--- NOTE | 2020-11-20 11:40 | PT.IPTN ---
Current Diagnoses Sepsis, unspecified organism (11/17/20) Physical Therapy Treatment Note M2 PT-IP Current Condition Start: 11/18/20 11:38 Freq: NEEDED Status: Active Protocol: Document 11/18/20 16:30 AW (Rec: 11/18/20 17:24 AW [id number]) Physical Therapy Current Condition Current Condition Evaluation Date 11/18/20 Treatment Diagnosis sepsis, pneumonia, AMS, falls, difficulty in walking Onset Date a few weeks Precautions Other Precautions falls M3 PT-IP Subjective Start: 11/18/20 11:38 Freq: NEEDED Status: Active Protocol: Document 11/20/20 11:25 SP (Rec: 11/20/20 18:21 SP [email or web address]) Subjective Physical Therapy Visit Type Type Treatment Note Visit Start Time 11:25 Visit Stop Time 11:40 Total Visit Minutes 15 Notes Vitals taken during tx: supine: BP 146/75 seated at EOB: 139/75 HR 66 SaO2 99% on RA post mobility in room: 151/80 HR 62, 93% on RA Number of SHAKE PACKER Visits 1 Physical Therapy Visit Comments Patient Comments I want my shoes on to walk, my brought them in for me. Therapy Pain Assessment Pain When Pain Assessed During Mobility Pain Present Pain Present Pain Reported Location low back Scale Used not quantified Description Aching,Chronic,Throbbing,With Movement Pain Behaviors Facial Grimacing,Restlessness Pain Management Techniques Distraction,Re-positioning M4 PT-IP Mobility and Gait Start: 11/18/20 11:38 Freq: NEEDED Status: Active Protocol: Document 11/20/20 11:25 SP (Rec: 11/20/20 18:21 SP [id number]) PT-Bed Mobility Assessment Supine to Sit Supine to Sit Standby Assistance Sit to Supine Sit to Supine Standby Assistance Scooting Scooting to Edge of Bed Standby Assistance PT-Transfer Assessment Sit to and From Stand Sit to and from Stand Contact Guard Assistance, Minimal Assistance,1 Person Assistance,Use of Upper Extremities Equipment Transfer Assistive Device Gait Belt,Front Wheeled Walker Orthotic/Prosthetic Devices or Brace: No Transfers Transfer Destination Chair Transfer Technique Stand Step Pivot Transfer Ability Level of Assist Minimal Assistance,1 Person Assistance,Use of Upper Extremities Comments Mobility Comments Pt was lying in bed when arrived. HOB flat supine>sit and scoot to EOB with use of bed rail, SHAKE PACKER donned pt's slip on shoes, sit>stand CG- Min A with cues for proper hand placement push from bed then transition to FWW. SPT bed> chair Min A with cues for upright posture, foot clearance and body postioning backing up to chair with assist for FWW back fully before reaching back to sit, CGA to sit in chair. 2 min rest in chair, Sit> stand cues for safety hand placement. Pt able to walk forward sink and back using FWW pivot and return to chair CG> Min A with cues for trunk alignment. SPT back to chair Min A for turn fully and cue HP sit into chair. Pt restless sitting in chair, noted leaning to R on chair arm stated I can sit for little bit in chair then get back to bed SBA. Sit> stand from chair, SPT using fWW to bed Min A with cues and assist for FWW safety positioning and reaching back for bed prior to sitting. Sit> supine with use of bed rails sBA. Pt requested to return to bed end of tx, believe having back pain but she could not definitively answer when asked . Pt was slight elevated supine in bed with call light, bed alarmed alll needs in reach before left. Gait Assessment Gait Gait Assistance Required: Minimum Assistance,1 Person Assist Distance (Feet) 10 Assistive Devices Assistive Device Gait Belt,Front Wheeled Walker Orthotic/Prosthetic Devices or Brace: No Gait Deviations General Gait Pattern Antalgic,Decreased Stride Length,Decreased Feet Clearance,Flexed Trunk,Step-to Gait,Wide Based Gait Factors Limiting Gait Function Factors Limiting Gait Function Decreased Activity Tolerance, Decreased Strength,Difficulty Following Directions,Limited Range of Motion,Pain,Poor Balance,Poor Safety Awareness Comments Gait Comments Pt step to gait WBOS using FWW Min A with moderate BUE WB on FWW chair<> sink, noted BLE ankles inverted, cued increase foot clearance and B feet inside FWW during pivot and obstacle mgt safety awareness near end of bed SCD tubing. Stair Climbing Assessment Comments Stair Climbing Comments Not assessed due to decreased strength and heavy WB BUE on FWW, if safe pt will need to assess 6+8 stairs has at home 1 HR and SPC PLOF. PT-Balance Assessment Sitting Balance and Reactions Static Sitting Balance Ability Fair Dynamic Sitting Balance Ability Poor Standing Balance and Reactions Static Standing Balance Ability Poor Dynamic Standing Balance Ability Poor Device Used FWW Comments Other Balance Tests/Deviations/Treatment Pt required cues for centering : self in chair, required pillow support on L side for safety. Uncertain if lack of seated posture due to pain repositioning or lack of seated strength. Pt able to sit at EOB and EOchair without UE support. M5 PT-IP Objective Assessments Start: 11/18/20 11:38 Freq: NEEDED Status: Active Protocol: Document 11/18/20 16:30 AW (Rec: 11/18/20 17:24 AW [id number]) Orientation Orientation/Cognition Level of Alertness Confusional State Orientation Name,Place Language Function Ability No Deficits Noted Safety Awareness Decreased Safety Awareness Memory Description Short Term Impaired Gross Range of Motion Upper Extremity ROM Assessment Bilaterally Impaired Impairments Hands affected by RA with extreme ulnar drift. Lower Extremity ROM Assessment Within Functional Limits Strength Lower Extremity Strength Assessment Bilaterally Impaired Hip 3+/5 Knee 4-/5 Sensation Assessment Comments Sensation Comments Unable to assess due to cognition. M6 PT-IP Treatment Start: 11/18/20 11:38 Freq: NEEDED Status: Active Protocol: Document 11/20/20 11:25 SP (Rec: 11/20/20 18:21 SP [email or web address]) Physical Therapy Treatment Education Education Provided Safety M7 PT-IP Assessment and Plan Start: 11/18/20 11:38 Freq: NEEDED Status: Active Protocol: Document 11/20/20 11:25 SP (Rec: 11/20/20 18:21 SP [email or web address]) PT Summary Assessment and Plan Potential Rehabilitation Potential Fair Status of Condition at Evaluation Evolving Summary Impairments Pain,ROM,Strength,Balance, Cognition,Bed Mobility, Transfers,Gait,Activity Tolerance Progress Towards Goals Slow Progress due to Pain,Slow Progress due to Activity Tolerance,Slow Progress - Other Assessment Summary Pt requires SBA for bed mobility, Min A for sit<> stand, SPT and short distance gait chair<> sink using FWW. Pt is not safe to sit unattended in chair, recommended nursing for chair alarm. PT recommending SNF for progress strength and functional mobility. Will continue to assess progress. Goals Bed Mobility Goal Independent Transfer Goal Standby Assistance,Front Wheeled Walker Gait Goal Independent,Front Wheel Walker Gait Distance 40 Other Goals - up/down 8 steps with unilateral rail and SPC CGA LTG: Improve transfers and gait to SBA with 4WW Days to Meet Goals 10 Frequency of Treatment Frequency Of Treatment Once a Day Treatment Plan Physical Therapy Treatment Plan Bed Mobility Training,Transfer Training,Gait Training, Therapeutic Exercise,Balance Retraining,Discharge Planning, Neuromuscular Re-ed Other Recommendations and Next Treatment transfers, gait with FWW ( Focus shoes donned), stairs if safe. Precautions Other Precautions falls Recommendations To Nursing Amount of Assist Needed 1 Person Assist Discharge Recommendations PT Discharge Recommendations SNF Rehab,Home vs SNF Transportation Needs at Discharge Private Vehicle,Wheelchair/ Cabulance
--- NOTE | 2020-11-20 11:46 | PM.PN.1 ---
Subjective Subjective Date Patient Seen: 11/20/20 Time Patient Seen: 08:00 Interval history: This morning she feels well. She has no pain. No coughing or shortness of breath. No chest discomfort. Exam Vital Signs (past 8 hours): - 11/20/20 04:00 11/20/20 07:34 11/20/20 08:52 Temperature 97.2 F L 97.0 F L Pulse Rate 53 L 58 L 57 L Respiratory Rate 16 16 Blood Pressure 173/78 H 185/87 H 187/87 H Pulse Oximetry 100 98 Oxygen Delivery Method Room Air Oxygen Flow Rate 0 Narrative Exam Narrative: General: in no acute distress. HEENT: Poor dentition, mucosa membranes are dry Cardiovascular: regular with no murmurs Pulmonary: decreased breath sound at bases, coarse breath sounds Abdomen: Soft,, nontender, nondistended. No hepatosplenomegaly or masses appreciated. Extremities: Extremities are covered in bruises NEURO: awake, alert and oriented to self and to year and location Psychiatric: cognitive impairment vs. dementia with short-term memory recall deficit. Objective Labs Result Diagrams: 11/20/20 04:55 11/20/20 04:55 Labs: Laboratory Results - last 24 hr 11/20/20 11/20/20 04:55 04:55 WBC 13.5 H RBC 3.55 L Hgb 10.7 L Hct 31.9 L MCV 90.0 MCH 30.0 MCHC 33.4 RDW 16.1 H Plt Count 283 Neut % (Auto) 74.9 Lymph % (Auto) 11.4 L [place] % (Auto) 11.0 Eos % (Auto) 2.4 Baso % (Auto) 0.3 Neut # (Auto) 99017 H Lymph # (Auto) 1500 [place] # (Auto) 1500 H Eos # (Auto) 300 Baso # (Auto) 0 Sodium 128 L Potassium 4.3 D Chloride 98 Carbon Dioxide 27 BUN 16 Creatinine 0.54 Estimated GFR > 60.0 BUN/Creatinine Ratio 29.6 H Glucose 81 Calcium 7.9 L Total Bilirubin 0.9 AST 40 H ALT 20 Alkaline Phosphatase 277 H Total Protein 5.2 L Albumin 2.8 L Globulin 2.4 Albumin/Globulin Ratio 1.2 PFSH Medical History Atrial fibrillation Dementia Gastroesophageal reflux Hypertension Immunodeficiency due to treatment with immunosuppressive medication Osteoarthritis Rheumatoid arthritis Scoliosis Surgical History History of spinal surgery Social History household members: spouse and children Smoking Status: Former smoker alcohol intake: current Assessment & Plan Assessment & Plan narrative: Ms. Helton is a 80W with PMH of RA on immunosuppression,dementia, hypertension, atrial fibrillation, gastroesophageal reflux and levoscoliosis of the thoracic lumbar spine who is admitted forfor left lower lobe pneumonia with sepsis, encephalopathy, atrial fibrillation with RVR, and hypokalemia. 1. Sepsis, acute, secondary to left lower lobe pneumonia with encephalopathy, and resulting hypokalemia, acute, present on admission -patient with positive infection markers including lactate 4.0, procalcitonin of 1.77, leukocytosis at 18, neutrophils# 15,800. SOFA:3, curb 65: 3 -organ dysfunction with encephalopathy -potassium 2.9, GFR 52.9, BP 109/78 down from 135/108, HR 140, R 28 -placed on broad spectrum antibiotics with vanc/zosyn with some improvement with WBC and procal downtrending -potassium repleted and resovled 2. Elevated troponin secondary to type 2 VT, likely due to pneumonia/sepsis, acute, present on admission -troponin 1.# 0.121 that peaked at 0.4, but is now downtrending -ordered for aspirin, statin, beta-thong, and dabigatran -ECHO showed normal EF and no focal wall motion abnormality -plan for stress test tomorrow 11/21 3. Paroxysmal Atrial fibrillation with RVR, acute on chronic, present on admission -patient with history of atrial fibrillation developed atrial fibrillation with RVR in the emergency department with heart rate in 140s. -patient placed on diltiazem IV drip and converted -she was switched back to po metoprolol and pradaxa 4. Essential Hypertension, acute on chronic present on admission uncontrolled -patient was hypertensive in ED 135/57, 135/108, upon admit patient began developing hypotension with a BP decreased to 109/78-after receiving 1 L bolus NS -continue losartan until blood pressure improves. 5. Rheumatoid arthritis, chronic, present on admission-control unknown -rheumatoid arthritis bilateral hands with resulting joint deformities -patient on prednisone which is continued, and methotrexate which are held. 6. Dementia, acute on chronic, present on admission -continue patient's citalopram and Aricept Codestatus: DNR Surrogate decision maker: Greg Helton spouse DVT/VTE prophylaxis: Patient on Pradaxa, SCDs only I have utilized all available immediate resources to obtain, update, or review the patient's current medications.
--- NOTE | 2020-11-20 14:59 | OT.IPNOTE ---
Pt too tired and not wanting to take a shower today for OT therapy. To check on pt tomorrow.
[2020-11-20] MEDS: ACETAMINOPHEN 325 MG TABLET 650 MG PO (18:02)
--- NOTE | 2020-11-20 18:05 | DI.NM.S_ITS ---
DATE OF SERVICE: 11/20/2020 PROCEDURE: Pharmacological perfusion study. INDICATIONS: Sepsis, AFib with fast ventricular rate, abnormal mental status during admission and elevated troponin. Perfusion study is being done for CAD diagnosis and risk stratification. RADIOPHARMACEUTICAL: 22.9 millicurie technetium-99m Myoview IV was injected at stress. Please note this is a stress study only. CARDIAC STRESS: The patient underwent IV Lexiscan perfusion study under the supervision of an attending staff using IV Lexiscan, as per standard protocol. The patient remained hemodynamically stable. Baseline rhythm was sinus with right bundle branch block and some PACs. During stress, no convincing ischemic changes. The patient continues to have PACs without any complex arrhythmias, like atrial fibrillation or ventricular tachycardia. No anginal symptoms. RAW DATA: There is a soft tissue shadow near the basal inferior border of the heart. GATED STUDY: Stress LV ejection fraction reported to be 89 percent. Stress end- diastolic volume 37. Lung/heart ratio 0.40. There was poor visualization of LV, hence wall motion abnormalities cannot be commented on. PERFUSION SCAN: There are no prone images. Stress supine images revealed very minimally decreased, very small size perfusion defect in the basal inferolateral area. Otherwise, normal myocardial perfusion in rest of the LV segments. CONCLUSION: No significant perfusion defects seen on the stress supine images other than very minimally decreased perfusion of basal inferolateral wall. On raw images, there is a soft tissue shadow near the basal bottom part of the heart. Left ventricular ejection fraction 89 percent. No convincing ischemic electrocardiographic changes. No anginal symptoms. Hence, overall this is a low-risk perfusion study. No need for resting perfusion study to avoid radiation exposure. Discussed with our hospitalist. Correlate clinically. Griselda Helton - MORNING NANNY/nida/nicolasa doc#: [id number]/job#: [id number] dd: 11/20/2020 16:48:00 dt: 11/20/2020 17:34:00 DICTATING MD/COPIES TO: Armand Pearce MD COPIES MNE: ABEL;
--- NOTE | 2020-11-20 19:23 | PC.NURSE ---
Pt is impulsive in movement and activity. Bed alarm in place and staff members attend quickly to pt to assist with needs. Pt is unsteady on feet up to bathroom to void. Gait belt and walker for safety. BL calf scd's replaced upon pt's return to bed. Pt becomes more restless in bed and sets off alarm often moving legs out of bed frequently. Inquired of pt if scd's are irritating to pt and pt confirms this. These were removed. Tylenol given for c/o rheumatoid pain to right hand. Warm blanket and pt able to rest quietly in bed. Was given vanilla ensure d/t minimal po intake for dinner. Spouse has visited this evening shift.
[2020-11-20] MEDS: ATORVASTATIN 20 MG TABLET 80 MG PO (21:10)
[2020-11-20] MEDS: SENNOSIDES 8.6 MG TABLET 17.2 MG PO (21:16)
[2020-11-20] MEDS: MELATONIN 3 MG TABLET 6 MG PO (21:17)
[2020-11-21] VITALS (8 sets, daily range): BP systolic 109–179; BP diastolic 47–96; PULSE 57–87; RESP 15–18; TEMP 36.1–37; O2SAT 94–100
[2020-11-21 06:04] LABS: Hematocrit 33.2 % (36-46); Mean Corpuscular HGB Conc 33.3 % (30-36); Mean Corpuscular Hemoglobin 29.9 PG (26-34); Mean Corpuscular Volume 89.8 fL (80-100); Platelet Count 290 X10^3/uL (150-400); Red Blood Cell Count 3.69 X10^6/uL (4.0-5.2); Red Cell Distribution Width 16.6 % (11.6-14.8); White Blood Cell Count 13.9 X10^3/uL (4.5-11.0)
[2020-11-21 06:12] LABS: BUN Creatinine Ratio 25.9 (6-22); Blood Urea Nitrogen 14 mg/dL (7-17); Calcium 8.1 mg/dL (8.4-10.2); Carbon Dioxide 30 mmol/L (22-32); Chloride 99 mmol/L (98-107); Estimated Glomerular Filt Rate > 60.0 mL/min (>60); Glucose 85 mg/dL (80-110); HEMOLYSIS < 15 (0-50); Potassium 4.4 mmol/L (3.4-5.1); Sodium 129 mmol/L (137-145)
--- NOTE | 2020-11-21 09:09 | CM.DPNOTE ---
Addendum entered by MARVIN Anderson 11/21/20 11:24: Correction: Jennyfer at [facility] had confirmed that patient's [employer] coverage would likely auth in and out of network SNFs at this time, and patient would be responsible for 10% out of pocket (co pay) Meant for another patient's chart- does not obtain to this patient's SNF benefits. Original Note: DCP Note Discussed referral w/Shirley at [facility] throughout the day yesterday. Also discussed w/ Maximino (never got a response yesterday), w/Jennyfer at [facility] and w/ September at [facility] and [facility] full. At the end of yesterday, no SNF was able to accept patient for care. Jennyfer at [facility] had confirmed that patient's [employer] coverage would likely auth in and out of network SNFs at this time, and patient would be responsible for 10% out of pocket (co pay). Unfortunately, no SNF secured at this time. This is a particularly challenging time to secure SNF beds d/t the COVID-19 pandemic and the critically low staffing at many facilities, and so, patient may inevitably need to return home w/spouse to assist; will discuss w/patient's spouse and medical team today. BRYON
[2020-11-21] MEDS: METOPROLOL ER 25 MG TABLET PO (09:23)
[2020-11-21] MEDS: predniSONE 5 MG TABLET PO (09:23)
[2020-11-21] MEDS: ASPIRIN EC 81 MG TABLET PO (09:24)
[2020-11-21] MEDS: DABIGATRAN 75 MG CAPSULE 150 MG PO (09:24)
[2020-11-21] MEDS: SODIUM CHLORIDE 0.9% FLUSH 10 ML IV (09:24)
[2020-11-21] MEDS: MEROPENEM 1 GM in SODIUM CHLORIDE 0.9% 100 ML 200 ML IV (10:26)
--- NOTE | 2020-11-21 11:07 | P.DS_ITS ---
History of Present Illness History of Present Illness Chief complaint: Change of mental status Narrative: Per Dominga Wyman: Griselda Helton is a 80-year-old female patient with a history that is significant for rheumatoid arthritis on immunosuppressive therapy,dementia, hypertension, atrial fibrillation, gastroesophageal reflux and levoscoliosis of the thoracic lumbar spine who was brought in today by her for confusion over the last 2 weeks, and 3 falls the last 2 days, 1 resulting in the loss of consciousness. The patient's spouse provides the predominant amount of information for the HPI & ROS as patient is a poor historian and has dementia. He states that the patient hit her head today with loss of consciousness and was unresponsive, he contacted EMS, and when she left on the ambulance she continued to be unresponsive. When he arrived in the ED she was responsive but confused, but states upon admit to the floor that she has returned to her normal baseline. The patient denies chest pain, shortness of breath, fever, chills, headache, hematuria, melena, changes in vision, new weakness, numbness, tingling, difficulty with swallowing. The spouse reports that the patient began having greater confusion approximately 2 weeks ago and difficulty with balance and ambulation and started to fall frequently. Patient's vitals upon admit she is afebrile with a temp 98.7?, the beginnings of hypotension with a BP of 109/78 (in ER patient had been 139/59-135/108), patient's has had uncontrolled atrial fibrillation with RVR, HR 140, placed on a diltilizem drip in ED, tachypneic RR 28, O2 saturation 96% on room air. Patient has an elevated white count 18, neutrophils# 15,800, lactate 4.0, procalcitonin 1.77, sofa: 3. Patient's sodium 136, BUN 22, potassium hypokalemia 2.9, glucose 118, AST 38, alk-phos 300, patient also had elevated troponin of 0.121. Patient's urine was cloudy with positive protein and blood sent for culture, tox screen was positive for EtOH of 52. I personally reviewed patient's EKG which demonstrated atrial fibrillation with RVR rate 103, right bundle-branch block. Patient's chest x-ray demonstrated new retrocardiac dense consolidation, concerning for left lower lobe pneumonia. Patient's cervical CT demonstrated no definite acute fracture. Positive severe cervical and thoracic spondylosis, and facet arthropathy. A 1.6 cm right upper lobe nodule concerning for bronchogenic malignancy. Partially visualized left pleural effusion with adjacent atelectasis. Patient admitted for left lower lobe pneumonia with sepsis, encephalopathy, atrial fibrillation with RVR, and hypokalemia. Discharge Providers Provider Date of admission: 11/17/20 23:35 Discharge Date: 11/21/20 Primary care physician: Aishwarya Richard MD Consults: 11/17/20 23:55 Consult to Respiratory Therapy Evaluate & Treat Comment: Pneumonia Physician Instructions: Evaluate and treat 11/18/20 10:36 Consult to Occupational Therapy Evaluate & Treat Comment: Physician Instructions: Evaluate and treat Consult to Physical Therapy Evaluate & Treat Comment: Physician Instructions: Evaluate and Treat 11/18/20 23:24 Consult to Dietitian, Adult Routine Comment: Reason For Exam: decreased appetite, fragile skin, multiple wounds 11/21/20 11:14 Consult to Home Health Routine Comment: Reason For Exam: Home Health upon DC Discharge provider: Scotty Wheeler MD Summary Hospital Course Discharge Diagnosis: 1. Left lower lobe pneumonia with acute metabolic encephalopathy and sepsis 2. Type 2 RI due to sepsis 3. Paroxysmal afib with RVR 4. HTN 5. Rheumatoid arthritis 6. Dementia 7. Spiculate right upper lobe mass, 1.8cm Hospital Course: Ms. Helton was admitted with worsening confusion and falls. She was found to have sepsis and pneumonia. She was also found to have positive EtOH though denied significant alcohol abuse. She was found to have consolidation on lung imaging with elevated lactate, procalcitonin and leukocytosis. She improved with antibiotics and on discharge was back to her normal mental status. She has a chronic leukocytosis secondary to prednisone. Additionally she had an elevated troponin that peaked at 0.4, with no chest pain. ECHO showed no focal wall motion abnormalities. She was started on aspirin and statin. She underwent stress test that was a low risk study. Her symptoms were likely secondary to de sandy in the setting of sepsis, and she also had afib with RVR on admission, this converted while on a diltiazem drip and she was transitioned back to her home dose of metoprolol. Ct chest showed new spiculated mass in right lung, concerning for a lung mass. Urgent referral was placed to oncology, and she should follow up with her PCP as soon as possible. Exam Vital Signs (past 8 hours): Oxygen Delivery Method Room Air Oxygen Flow Rate 0 Narrative Exam Narrative: General: in no acute distress. HEENT: Poor dentition, mucosa membranes are dry Cardiovascular: regular with no murmurs Pulmonary: decreased breath sound at bases, coarse breath sounds Abdomen: Soft,, nontender, nondistended. No hepatosplenomegaly or masses appreciated. Extremities: Extremities are covered in bruises NEURO: awake, alert and oriented to self and to year and location Psychiatric: cognitive impairment vs. dementia with short-term memory recall deficit. Objective Labs Result Diagrams: 11/21/20 05:50 11/21/20 05:50 [facility] Medical History Atrial fibrillation Dementia Gastroesophageal reflux Hypertension Immunodeficiency due to treatment with immunosuppressive medication Osteoarthritis Rheumatoid arthritis Scoliosis Surgical History History of spinal surgery Social History household members: spouse and children Smoking Status: Former smoker alcohol intake: current Discharge Plan Discharge Plan Patient Disposition: Home Health Service Provider Discharge Comment: Ms. Helton came in confused. She was found to have pneumonia and started on antibiotics and improved. She had elevated strain on her heart because she had an irregular racing heart (atrial fibrillation) this improved with medication. She had a stress test that did not show any abnormality. She had a CT scan of her lungs and has a new possible mass, that is concerning for possible lung cancer. She has been referred to follow up with oncology urgently with Dr. Lima. She should follow up with her PCP within one week. Discharge orders & Medications Prescriptions: New aspirin 81 mg tablet,chewable 81 mg PO DAILY Qty: 30 RF: 0 atorvastatin [Lipitor] 20 mg Tablet 80 mg PO BEDTIME Qty: 30 RF: 0 amoxicillin-pot clavulanate 875-125 mg tablet 1 tab PO BID Qty: 6 RF: 0 Continued folic acid 1 MG tablet 1 mg PO BID Qty: 0 RF: 0 prednisone 5 MG tablet 5 mg PO DAILY Qty: 0 RF: 0 losartan 50 mg Tablet 100 mg PO DAILY RF: 0 citalopram 20 mg Tablet 20 mg PO DAILY RF: 0 methotrexate sodium 2.5 mg Tablet 15 mg PO TH RF: 0 omeprazole 20 mg Capsule,Delayed Release(Dr/Ec) 20 mg PO DAILY RF: 0 cyanocobalamin (vitamin B-12) [Vitamin B-12] 1,000 mcg Tablet 1,000 mcg PO BEDTIME RF: 0 Pradaxa 150 mg capsule 150 mg PO BID Qty: 60 RF: 0 cholecalciferol (vitamin D3) [Vitamin D3] 2,000 unit Tablet 2,000 unit PO BEDTIME RF: 0 ferrous sulfate 142 mg (45 mg iron) Tablet Extended Release 142 mg PO BEDTIME RF: 0 omega 1-ghg-wtb-fish oil [Fish Oil] 1,000 mg (120 mg-180 mg) Capsule 1,200 mg PO BID RF: 0 CoQ-10 1,000 mg 1,000 mg PO BEDTIME RF: 0 donepezil 10 mg Tablet 10 mg PO BEDTIME RF: 0 ascorbic acid (vitamin C) 500 mg Tablet 500 mg PO BID RF: 0 metoprolol succinate 25 mg tablet extended release 24 hr 25 mg PO BID RF: 0 magnesium 200 mg Tablet 200 mg PO BID RF: 0 Discontinued rosuvastatin 5 mg Tablet 5 mg PO DAILY RF: 0 Follow up/Referrals: Milton Anders MD [Physician] - Kobi Lima MD [Physician] - (possible new lung cancer noted on CT, please expedite referral) Aishwarya Richard MD [Primary Care Provider] - Diet/Activity/Treatments Diet: Regular Visit Report/Discharge Packet Instructions: DI for Prescription Opioid Use Discharge Data Primary Care Provider: Aishwarya Richard Quality [facility] [place] The patient has current or prior documentation of left ventricular ejection fraction (LVEF) less than 40%, or moderate or severely depressed left ventricular systolic function.: No
--- NOTE | 2020-11-21 11:36 | PT.IPTN ---
Current Diagnoses Sepsis, unspecified organism (11/17/20) Physical Therapy Treatment Note M2 PT-IP Current Condition Start: 11/18/20 11:38 Freq: NEEDED Status: Active Protocol: Document 11/18/20 16:30 AW (Rec: 11/18/20 17:24 AW [id number]) Physical Therapy Current Condition Current Condition Evaluation Date 11/18/20 Treatment Diagnosis sepsis, pneumonia, AMS, falls, difficulty in walking Onset Date a few weeks Precautions Other Precautions falls M3 PT-IP Subjective Start: 11/18/20 11:38 Freq: NEEDED Status: Active Protocol: Document 11/21/20 10:41 CLB (Rec: 11/21/20 12:13 CLB [id number]) Subjective Physical Therapy Visit Type Type Treatment Note Visit Start Time 10:41 Visit Stop Time 11:36 Total Visit Minutes 43 Notes split treat [id number] Number of IRON GUARDRAIL INSTALLER Visits 2 Physical Therapy Visit Comments Patient Comments Pt willing to work with therapy. Therapy Pain Assessment Pain When Pain Assessed During Mobility Pain Present Pain Present Pain Reported Location low back Scale Used 7 Description Aching Pain Behaviors Facial Grimacing,Restlessness M4 PT-IP Mobility and Gait Start: 11/18/20 11:38 Freq: NEEDED Status: Active Protocol: Document 11/21/20 10:41 CLB (Rec: 11/21/20 12:13 CLB [id number]) PT-Bed Mobility Assessment Supine to Sit Supine to Sit Standby Assistance Sit to Supine Sit to Supine Standby Assistance Scooting Scooting to Edge of Bed Standby Assistance PT-Transfer Assessment Sit to and From Stand Sit to and from Stand Contact Guard Assistance,1 Person Assistance,Use of Upper Extremities Equipment Transfer Assistive Device Gait Belt,Front Wheeled Walker ,4 Wheeled Walker Orthotic/Prosthetic Devices or Brace: No Transfers Transfer Destination Bed,Toilet,Wheelchair Transfer Technique Stand Step Pivot Transfer Ability Level of Assist Contact Guard Assistance, Minimal Assistance,1 Person Assistance,Use of Upper Extremities Comments Mobility Comments Pt able to get to EOB SBA then required assist donning shoes . Pt stood CGA and ambulated in room with FWW/CGA-Min A with cues for walker use and watching obstacles for safety. Pt then returned to bed SBA. IRON GUARDRAIL INSTALLER returned to room for stair training. Pt able to get to sitting on EOB SBA then stood CGA using FWW to transfer to requiring CGA. Pt then stood CGA and climbed 3 steps using step to step and can in left hand requiring CGA-Min A. Pt then climbed 3 steps using both hands on one rail as pt has difficulty holding cane due to RA in hands. Pt able to climb three steps this way CGA. IRON GUARDRAIL INSTALLER recommended to pt that she stay on main level of house in guest room until stronger, pt states she will talk to her about that . Pt returned to room in WC and stood to 4WW, pt ambulated in pichardo ~50ft with 4WW/CGA with improved steadiness and maneuvering around obstacles although pt continues to require cues to slow down as pt is impulsive. Pt then requested to use BR and pt ambulated into BR requiring assist with gown as pt doffed brief, RN entered room and took over care of pt. Gait Assessment Gait Gait Assistance Required: Contact Guard Assist,Minimum Assistance,1 Person Assist Distance (Feet) 50 Assistive Devices Assistive Device Gait Belt,Front Wheeled Walker ,4 Wheeled Walker Orthotic/Prosthetic Devices or Brace: No Gait Deviations General Gait Pattern Antalgic,Decreased Stride Length,Decreased Feet Clearance,Flexed Trunk,Step-to Gait,Wide Based Gait Factors Limiting Gait Function Factors Limiting Gait Function Decreased Activity Tolerance, Decreased Strength,Difficulty Following Directions,Limited Range of Motion,Pain,Poor Balance,Poor Safety Awareness Comments Gait Comments see mobility comments Stair Climbing Assessment Evaluation Level of Assist On Stairs Contact Guard Assistance, Minimal Assistance,1 Person Assistance Devices Stair Climbing Assistive Devices Straight Cane,Right Railing Technique/Endurance Stair Climbing Direction Ascend and Descend Stair Climbing Technique Step to Step Number of Steps Climbed 3 Stair Climbing Set # Repetitions (reps) 2 Comments Stair Climbing Comments see mobility comments PT-Balance Assessment Sitting Balance and Reactions Static Sitting Balance Ability Fair Dynamic Sitting Balance Ability Poor Standing Balance and Reactions Static Standing Balance Ability Poor Dynamic Standing Balance Ability Poor Device Used FWW M5 PT-IP Objective Assessments Start: 11/18/20 11:38 Freq: NEEDED Status: Active Protocol: Document 11/18/20 16:30 AW (Rec: 11/18/20 17:24 AW [id number]) Orientation Orientation/Cognition Level of Alertness Confusional State Orientation Name,Place Language Function Ability No Deficits Noted Safety Awareness Decreased Safety Awareness Memory Description Short Term Impaired Gross Range of Motion Upper Extremity ROM Assessment Bilaterally Impaired Impairments Hands affected by RA with extreme ulnar drift. Lower Extremity ROM Assessment Within Functional Limits Strength Lower Extremity Strength Assessment Bilaterally Impaired Hip 3+/5 Knee 4-/5 Sensation Assessment Comments Sensation Comments Unable to assess due to cognition. M6 PT-IP Treatment Start: 11/18/20 11:38 Freq: NEEDED Status: Active Protocol: Document 11/20/20 11:25 SP (Rec: 11/20/20 18:21 SP [id number]) Physical Therapy Treatment Education Education Provided Safety M7 PT-IP Assessment and Plan Start: 11/18/20 11:38 Freq: NEEDED Status: Active Protocol: Document 11/21/20 10:41 CLB (Rec: 11/21/20 12:13 CLB [id number]) PT Summary Assessment and Plan Potential Rehabilitation Potential Fair Status of Condition at Evaluation Evolving Summary Impairments Pain,ROM,Strength,Balance, Cognition,Bed Mobility, Transfers,Gait,Activity Tolerance Progress Towards Goals Slow Progress due to Pain,Slow Progress due to Activity Tolerance Assessment Summary Pt is impulsive and requires cues for walker management during gait for safety. Pt improved gait quality with 4WW and required fewer cues to maneuver 4WW and has 4WW at home. Pt had difficulty climbing stairs with cane and was safer using both hands on rail as pt states she goes up stairs w/o assist at home. IRON GUARDRAIL INSTALLER suggested pt stay on main level in guest room until she is able to safely climb steps with landing to second floor in home. Pt states she would be open to have PT to improve strength and activity tolerance as pt unable to d/c to SNF at this time as there are no bed available in area. Goals Bed Mobility Goal Independent Transfer Goal Standby Assistance,Front Wheeled Walker Gait Goal Independent,Front Wheel Walker Gait Distance 40 Other Goals - up/down 8 steps with unilateral rail and SPC CGA LTG: Improve transfers and gait to SBA with 4WW Days to Meet Goals 10 Frequency of Treatment Frequency Of Treatment Once a Day Treatment Plan Physical Therapy Treatment Plan Bed Mobility Training,Transfer Training,Gait Training, Therapeutic Exercise,Balance Retraining,Discharge Planning, Neuromuscular Re-ed Precautions Other Precautions falls Recommendations To Nursing Amount of Assist Needed 1 Person Assist Discharge Recommendations PT Discharge Recommendations Home Health,SNF Rehab,Home vs SNF Transportation Needs at Discharge Private Vehicle,Wheelchair/ Cabulance
--- NOTE | 2020-11-21 12:30 | OT.IP.TRT ---
Current Diagnoses Sepsis, unspecified organism (11/17/20) Occupational Therapy Treatment Note M2 OT-IP Current Condition Start: 11/18/20 17:38 Freq: Status: Active Protocol: Document 11/18/20 17:38 CGR (Rec: 11/18/20 17:57 CGR [id number]) Occupational Therapy Current Condition Current Condition Evaluation Date 11/18/20 Treatment Diagnosis increased confusion with multiple falls, LLL PNA with sepsis Diagnosis Onset Date 11/17/20 M3 OT- IP Subjective and Pain Start: 11/18/20 17:38 Freq: Status: Active Protocol: Document 11/21/20 13:02 CCC (Rec: 11/21/20 13:13 CCC [id number]) OT- Subjective Occupational Therapy Visit Type Type Treatment Note Visit Start Time 12:35 Visit Stop Time 13:00 Total Visit Minutes 25 Occupational Therapy Visit Comments Patient Comments Able to encourage pt to take a shower after encouragement. Patient/Caregiver Goals To go home. OT Pain Assessment Pain When Pain Assessed At Rest Pain Present Pain Present Denied Pain M4 OT- IP ADL's Start: 11/18/20 17:38 Freq: Status: Active Protocol: Document 11/21/20 13:02 [facility] (Rec: 11/21/20 13:13 [facility] [id number]) OT [id number] General Evaluation Self-Feeding Ability Minimal Assistance Comments OT Self-Feeding Comments Able to give pt foam tubing to help pt be able to hold utensil better. Also propped pillow under her right elbow to increase her ease to eat. Pt needing assist to cut up her meat. OT ADL-Bathing Bathing Type Bathing Type Shower General Evaluation Bathing Ability Maximal Assistance Areas Needing Assistance Wash/Dry Back,Wash/Dry Perineal Area,Wash/Dry Lower Extremities Comments OT Bathing Comments Pt needing assist for her hair , back, pericare needs, and lower extremities and arm pits . Pt able to assist with her face and arms. Pt would benefit from a tub bench or sponging off at this time at home. In addition bath aid would also be beneficial for pt. M5 OT- IP IADL's Start: 11/18/20 17:38 Freq: Status: Active Protocol: Document 11/18/20 17:38 CGR (Rec: 11/18/20 17:57 CGR [id number]) OT-Instrumental Activities of Daily Living Deficits IADL Deficits Identified Deficits Home Safety Awareness Awareness of Need for Assistance at Home Decreased Awareness Ability to Problem Solve Emergency Unable to Problem Solve Situations Medication Management Medication Management Caregiver Provides Supervision Money Management Money Management Caregiver Provides Assistance Meal Preparation Meal Preparation Caregiver Provides Assist Diaphragm Builder Diaphragm Builder Caregiver Provides Assist Driving Driving Comments Pt does not drive. M6 OT- IP Functional Cognition Start: 11/18/20 17:38 Freq: Status: Active Protocol: Document 11/21/20 13:02 [facility] (Rec: 11/21/20 13:13 [facility] [id number]) Cognitive Factors Limiting Selfcare Function Cognitive Ability Level of Alertness Alert,Confusional State Attention Span Ability Unable to Focus,Unable to Sustain Attention Ability to Follow Commands Able to Follow One Step Commands with Increased Time, Able to Follow One Step Commands with Repetition Cognitive Comments Cognitive Assessment Comments Pt able to follow simple steps for 4WW use and for showering needs. M7 OT- IP Mobility and Balance Start: 11/18/20 17:38 Freq: Status: Active Protocol: Document 11/21/20 13:02 [facility] (Rec: 11/21/20 13:13 [facility] [id number]) OT- Bed Mobility Assessment Supine to Sit Supine to Sit Assist Standby Assistance Scooting Scooting to Edge of Bed Standby Assistance OT-Transfer Assessment Sit to and From Stand Sit to and from Stand Standby Assistance,Contact Guard Assistance Transfers Transfer Ability Contact Guard Assistance Technique Transfer Destination Bed,Chair Transfer Technique Stand Step Pivot Devices Transfer Assistive Devices Gait Belt,4 Wheeled Walker Comments Mobility Comments Pt moving much better and moves with 4ww better as able to control it better. Pt mainly CGA for balance and STEVEN to help step over the threshold of the shower. OT- Balance Assessment Sitting Balance and Reactions Static Sitting Balance Ability Good Dynamic Sitting Balance Ability Fair Standing Balance and Reactions Static Standing Balance Ability Poor M8 OT- IP Objective Assessments Start: 11/18/20 17:38 Freq: Status: Active Protocol: Document 11/18/20 17:38 CGR (Rec: 11/18/20 17:57 CGR [id number]) OT Gross Range of Motion Upper Extremity Range of Motion Assessment Within Functional Limits OT Strength Comments Strength Comments Appears to grossly be 3+/5 with noted arthritic changes to both hands limiting use. Pt uses her R arm to assist L arm with shld movement. Pt had difficulty following commands to perform formal testing. OT- Coordination Assessment Upper Extremity Finger to Nose Test Bilateral UE Impaired Finger Tapping Test Bilateral UE Impaired OT-Muscle Tone Assessment Muscle Tone WNL Yes OT Sensation Assessment Edema Edema Absent M9 OT- IP Assessment and Plan Start: 11/18/20 17:38 Freq: Status: Active Protocol: Document 11/21/20 13:02 [facility] (Rec: 11/21/20 13:13 [facility] [id number]) OT Summary Assessment and Plan Potential Rehabilitation Potential Fair Analytic Complexity at Evaluation High Summary OT Impairments Range of Motion,Strength, Balance,Coordination, Functional Cognition, Functional Mobility,Self- Feeding,Grooming,Dressing, Toileting,Bathing,Toilet Transfers,Shower Transfers, Activity Tolerance Progress Towards Goals Progressing Toward Goals Assessment Summary Pt moving much better able to tolerate a shower today. Pt would benefit from skilled rehab however placement not available therefore may have to go home with her and 24/ assist. Goals Self-Feeding Goal Independent Grooming Goal Independent Dressing Goal Independent Toileting Goal Independent Bathing Goal Independent Toilet Transfer Goal Independent Shower Transfer Goal Independent Days to Meet Goals 10 Frequency of Treatment Frequency Of Treatment Once a Day Treatment Plan OT Treatment Plan ADL Training,Functional Cognition Training,Functional Mobility,Patient/Family Education,Discharge Planning Discharge Recommendations OT Discharge Recommendations Home with 24/7 Assist Available,Acute Rehab,Home vs SNF Home Equipment Needs tub bench, BSC Transportation Needs at Discharge Private Vehicle,Wheelchair/ Cabulance
--- NOTE | 2020-11-21 14:49 | CM.DPNOTE ---
DC Note Spoke w/patient and spouse Greg; reviewed DCP options and reviewed attempt at SNF placement. Spouse agreeable to taking patient home today. Dr Wheeler has placed this DC order. Reviewed HH service and patient/spouse agreeable. No agency preference Call placed to [facility] and [facility] agencies, all out for RN start of care until next week. Gave [facility] this referral as they could see patient the soonest. SHARRI Michele kindly agreed to fax completed and signed F2F, HH order and clinical packet. Kavya made aware of this referral. Patient/spouse provided w/[facility] brochure. In addition, encouraged spouse to consider the residential care plan (?) since patient's care needs will ultimately outweigh spouse's abilities and spouse stated understanding. Plan: DC home w/spouse to assist, son visiting for one week to assist, and [facility] providing RN/PT/OT/YARD TRUCK DRIVER/FORENSIC STRUCTURAL ENGINEER, via spouse's private vehicle DAMASO Fuchs updated JW
--- NOTE | 2020-11-21 15:01 | CM.DPNOTE ---
Faxed [facility] per Rhona a referral packet and received fax conf. Leny Richards CM Asst.
[2020-11-21] MEDS: ACETAMINOPHEN 325 MG TABLET 650 MG PO (16:45)
== END 2020-11-21 16:55 | disposition home health service (06) | DRG 871 ==
LOC: ED 21:03 → AC 23:36 → ICU 11-18 00:20 → AC 11-18 09:40
PROVIDERS: Internal Medicine; Admitting Provider Nurse Practitioner Family; Emergency Provider Emergency Medicine; PCP Internal Medicine; Referring Provider Emergency Medicine; Visit Provider Nurse Practitioner Family
DX: A41.9 Sepsis, unspecified organism (principal); G93.41 Metabolic encephalopathy; J18.9 Pneumonia, unspecified organism; I21.A1 Myocardial infarction type 2; E43 Unspecified severe protein-calorie malnutrition; D84.9 Immunodeficiency, unspecified; Z68.1 Body mass index [BMI] 19.9 or less, adult; R65.20 Severe sepsis without septic shock; E87.5 Hyperkalemia; I48.0 Paroxysmal atrial fibrillation; I10 Essential (primary) hypertension; M06.9 Rheumatoid arthritis, unspecified; F03.90 Unspecified dementia, unspecified severity, without behavioral disturbance, psychotic disturbance, mood disturbance, and anxiety; K21.9 Gastro-esophageal reflux disease without esophagitis; I45.10 Unspecified right bundle-branch block; R91.1 Solitary pulmonary nodule; Z87.891 Personal history of nicotine dependence; Z20.822 Contact with and (suspected) exposure to COVID-19; Z79.01 Long term (current) use of anticoagulants; Z91.81 History of falling
CPT/HCPCS: 36415; 70450; 71045; 71260; 72125; 78451; 80048; 80053; 80305; 80320; 80329; 81001; 82550; 83605; 83735; 83880; 84145; 84146; 84443; 84484; 85025; 85027; 85379; 85610; 85730; 86140; 87040; 87086; 87633; 87635; 87797; 93005; 93010; 93016; 93017; 93018; 93306; 94762; 96365; 96366; 96368; 97116; 97162; 97167; 97530; 97535; 99285; C9803; A9502; G0480; J0696; J2185; J2543; J2785; Q9967